=== PATIENT | male | born 1955 | race African-American/Black ===

== ENCOUNTER 2017-12-14 10:44 | Inpatient (IN) ==
[2017-12-14] MEDS ORDERED: 0.9 % Sodium Chloride 1,000 ML IVC ONE ×3 (10:59→14:51)
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
[2017-12-14] MEDS ORDERED: Acetaminophen IV 1,000 MG/100 ML INFUS..BTL IVPB ONE (11:12)
[2017-12-14 11:32] LABS: Basophils % 0.1 %
[2017-12-14 11:34] LABS: Hematocrit 35.3 % (37.5-50.1); Hemoglobin 11.8 g/dL (12.9-16.9); Immature Granulocytes % 0.4 % (0-4); Immature Platelets 5.8 % (1.1-6.1); Lymphocytes # 0.4 K/mcL (0.6-4.6); Lymphocytes % 4.1 %; Mean Corpuscular HGB Conc 33.4 g/dL (31.6-35.5); Mean Corpuscular Hemoglobin 29.8 pg (28.0-33.3); Mean Corpuscular Volume 89.1 fL (83.0-100.0); Mean Platelet Volume 10.8 fL (9.4-12.4); Monocytes # 0.5 K/mcL (0.0-1.3); Monocytes % 5.4 %; Neutrophils # 8.4 K/mcL (1.6-8.9); Platelet Count 89 K/mcL (140-400); Red Blood Count 3.96 M/mcL (4.19-5.50); Red Cell Distribution Width 14.5 % (11.5-14.5)
[2017-12-14 11:42] LABS: Bilirubin,Urine Negative (Negative); Blood,Urine Negative (Negative); Clarity,Urine Clear (Clear); Color,Urine Yellow (Yellow); Glucose,Urine (UA) Normal (Normal); Ketones,Urine Negative (Negative); Leukocyte Esterase,Urine Negative (Negative); Nitrite,Urine Negative (Negative); Protein,Urine Negative (Neg-Trace); Specific Gravity,Urine 1.015 (1.010-1.025); Urobilinogen,Urine Normal (Normal)
[2017-12-14 11:49] LABS: Albumin 3.5 g/dL (3.5-5.7); Albumin/Globulin Ratio 1.1 (1.1-2.2); Bilirubin,Total 0.7 mg/dL (0.3-1.0); Calcium 9.1 mg/dL (8.6-10.3); Globulin 3.1 g/dL (2.4-3.5); Magnesium 2.1 mg/dL (1.6-2.6); Phosphorous 3.6 mg/dL (2.7-4.5); Potassium 3.4 mEq/L (3.5-5.1); Total Protein 6.6 g/dL (6.4-8.9)
[2017-12-14 11:51] LABS: Amphetamine Screen,Urine Negative ng/mL (Cutoff=1000); Barbiturate Screen,Urine Negative ng/mL (Cutoff=200); Benzodiazepines Screen,Urine Negative ng/mL (Cutoff=200); Cannabinoid Screen,Urine Negative ng/mL (Cutoff = 50); Cocaine Screen,Urine Negative ng/mL (Cutoff= 300); Opiate Screen,Urine Negative ng/mL (Cutoff=300); Phencyclidine Screen,Urine Negative ng/mL (Cutoff=25)
[2017-12-14] MEDS ORDERED: cefTRIAXone 2,000 MG in Water for inj. (sterile) 20 ML IVP ONE (11:57)
[2017-12-14] MEDS ORDERED: Acyclovir 800 MG in D5% in Water 250 ML IVPB ONE (11:58)
[2017-12-14] MEDS ORDERED: 0.9 % Sodium Chloride 1,000 ML IVC SCH (12:15)
[2017-12-14 12:20] LABS: ABG Base Excess -5 mEq/L (-2 to 3); ABG HCO3 20 mEq/L (21-27); ABG Oxygen Saturation 100 % (95-98); ABG PCO2 37 mmHg (35-45); ABG PH 7.34 pH Units (7.32-7.45); ABG PO2 174 mmHg (85-104); ABG TCO2 21 mEq/L (20-26)
--- NOTE | 2017-12-14 13:08 | Emergency Department Note ---
Disposition Clinical Impression: Altered mental status Qualifiers: Altered mental status type: unspecified Qualified Code(s): R41.82 - Altered mental status, unspecified Fever Qualifiers: Fever type: unspecified Qualified Code(s): R50.9 - Fever, unspecified Disposition: Admitted As Inpatient Referrals: NONE,PCP [Primary Care Provider] - Forms: ED Satisfaction Letter General Adult HPI - General Chief complaint: ED Fall Stated complaint: poss seizure/AMS Time Seen by Provider: 12/14/17 10:50 Source: patient, EMS Mode of arrival: EMS Limitations: altered mental status Nursing Notes Reviewed: Yes Vital Signs Reviewed: Yes - History of Present Illness HPI Narrative: This is only a procedure note. For full H&P please refer to Dr. Chavez and Dr. Edmondson's Note. Pain Scale: 0 - Related Data Home Medications Medication Instructions Recorded Confirmed LORazepam [Ativan] 1 mg PO TID 10/29/15 12/14/17 OLANZapine [Zyprexa] 30 mg PO HS 10/29/15 12/14/17 Trihexyphenidyl [Artane] 2 mg PO BID 10/29/15 12/14/17 cloNIDine HCl [CloNIDine HCl] 0.1 mg PO HS 12/14/17 12/14/17 traZODone [TraZODone] 400 mg PO HS 12/14/17 12/14/17 Previous Rx's Medication Instructions Recorded Fluphenazine [Prolixin] 2.5 mg PO BID #8 tablet 05/03/17 Allergies Allergy/AdvReac Type Severity Reaction Status Date / Time No Known Allergies Allergy Verified 10/29/15 17:34 Past Medical History - Past Medical History Medical history: Reports: no medical history Surgical history: Reports: no surgical history Psychiatric history: Reports: anxiety, bipolar, depression - Social History Smoking Status: Current every day smoker Smokeless Tobacco Status: No Alcohol use: Reports: none Drug use: Reports: none Physical Exam - General Limitations: altered mental status General appearance: alert, in no apparent distress, other (Appears chronically ill) Course Vital Signs Temperature 102.3 F H 12/14/17 10:50 Pulse Rate 136 12/14/17 10:50 Respiratory Rate 20 12/14/17 10:50 Blood Pressure 117/89 12/14/17 10:50 O2 Sat by Pulse Oximetry 9 12/14/17 10:50 Temperature 102.3 F H 12/14/17 10:50 Pulse Rate 81 12/14/17 12:27 Respiratory Rate 20 12/14/17 12:27 Blood Pressure 90/53 12/14/17 12:27 O2 Sat by Pulse Oximetry 98 12/14/17 12:27 Oxygen Delivery Oxygen Delivery Non Rebreather Mask Procedures - Lumbar Puncture Consent Obtained: written consent Time Out Performed: Yes Patient Position: upright Skin Prep: Povidone-Iodine 1% Local Anesthetic: lidocaine 1% Amount of anesthesia used (mL): 3 Spinal Needle Gauge: 20G Interspace Used: L3-L4 Fluid Initially Obtained: clear Complications: Need to have other Practitioner Attempt (Needed to have attending attempt after two attempts by myself. ) Medical Decision Making - MDM Narrative Medical decision making narrative: This is only a procedure note. For full H&P please refer to Dr. Chavez and Dr. Edmondson's Note. - Lab Data Result diagrams: 12/14/17 11:19 12/14/17 11:19 Lab Results 12/14/17 12/14/17 12/14/17 Range/Units 11:19 11:19 11:19 WBC 9.3 (4.3-11.1) K/mcL RBC 3.96 L (4.19-5.50) M/mcL Hgb 11.8 L (12.9-16.9) g/dL Hct 35.3 L (37.5-50.1) % MCV 89.1 (83.0-100.0) fL MCH 29.8 (28.0-33.3) pg MCHC 33.4 (31.6-35.5) g/dL RDW 14.5 (11.5-14.5) % Plt Count 89 L (140-400) K/mcL MPV 10.8 (9.4-12.4) fL Immature Gran % 0.4 (0-4) % Seg Neutrophils % 90.0 % Lymphocytes % 4.1 % Monocytes % 5.4 % Eosinophils % 0.0 % Basophils % 0.1 % Neutrophils # 8.4 (1.6-8.9) K/mcL Lymphocytes # 0.4 L (0.6-4.6) K/mcL Monocytes # 0.5 (0.0-1.3) K/mcL Eosinophils # 0.0 (0.0-0.6) K/mcL Basophils # 0.0 (0.0-0.2) K/mcL Immature Plt Fraction 5.8 (1.1-6.1) % Sample Site ABG pH (7.32-7.45) pH Units ABG pCO2 (35-45) mmHg ABG pO2 (85-104) mmHg ABG HCO3 (21-27) mEq/L ABG Total CO2 (20-26) mEq/L ABG O2 Saturation (95-98) % ABG Base Excess (-2 to 3) mEq/L Franklin Test O2 Delivery Device Inspired O2 (1-15=lpm [id number]=%) Sodium 136 (136-145) mEq/L Potassium 3.4 L (3.5-5.1) mEq/L Chloride 105 (98-107) mEq/L Carbon Dioxide 13 L (23-29) mEq/L BUN 15 (8-23) mg/dL Creatinine 2.11 H (0.70-1.30) mg/dL Est GFR ( Amer) 39 L (> 60) Est GFR (Non-Af Amer) 32 L (> 60) BUN/Creatinine Ratio 7 (6-26) Glucose 108 H (70-105) mg/dL Calculated Osmolality 283 (280-300) Lactic Acid (0.5-2.2) mmol/L Calcium 9.1 (8.6-10.3) mg/dL Phosphorus 3.6 (2.7-4.5) mg/dL Magnesium 2.1 (1.6-2.6) mg/dL Total Bilirubin 0.7 (0.3-1.0) mg/dL AST 57 H (13-39) Units/L ALT 45 (7-52) Units/L Alkaline Phosphatase 89 (34-104) Units/L Ammonia (16-53) mcmol/L Creatine Kinase 1143 H (30-223) Units/L Serum Total Protein 6.6 (6.4-8.9) g/dL Albumin 3.5 (3.5-5.7) g/dL Globulin 3.1 (2.4-3.5) g/dL Albumin/Globulin Ratio 1.1 (1.1-2.2) Urine Color (Yellow) Urine Clarity (Clear) Urine pH (5.0-8.0) pH Units Ur Specific [place] (1.010-1.025) Urine Protein (Neg-Trace) mg/dL Urine Glucose (UA) (Normal) mg/dL Urine Ketones (Negative) mg/dL Urine Blood (Negative) Urine Nitrite (Negative) Urine Bilirubin (Negative) Urine Urobilinogen (Normal) mg/dL Ur Leukocyte Esterase (Negative) Urine Opiates Screen (Yslvcb=979) ng/mL Ur Barbiturates Screen (Fjvxez=891) ng/mL Ur Phencyclidine Scrn (Cutoff=25) ng/mL Ur Amphetamines Screen (Zftnqx=8063) ng/mL U Benzodiazepines Scrn (Rbdjyo=839) ng/mL Urine Cocaine Screen (Cutoff= 300) ng/mL U Marijuana (THC) Screen (Cutoff = 50) ng/mL Ethyl Alcohol < 10 (0-10) mg/dL 12/14/17 12/14/17 12/14/17 Range/Units 11:19 11:19 11:34 WBC (4.3-11.1) K/mcL RBC (4.19-5.50) M/mcL Hgb (12.9-16.9) g/dL Hct (37.5-50.1) % MCV (83.0-100.0) fL MCH (28.0-33.3) pg MCHC (31.6-35.5) g/dL RDW (11.5-14.5) % Plt Count (140-400) K/mcL MPV (9.4-12.4) fL Immature Gran % (0-4) % Seg Neutrophils % % Lymphocytes % % Monocytes % % Eosinophils % % Basophils % % Neutrophils # (1.6-8.9) K/mcL Lymphocytes # (0.6-4.6) K/mcL Monocytes # (0.0-1.3) K/mcL Eosinophils # (0.0-0.6) K/mcL Basophils # (0.0-0.2) K/mcL Immature Plt Fraction (1.1-6.1) % Sample Site ABG pH (7.32-7.45) pH Units ABG pCO2 (35-45) mmHg ABG pO2 (85-104) mmHg ABG HCO3 (21-27) mEq/L ABG Total CO2 (20-26) mEq/L ABG O2 Saturation (95-98) % ABG Base Excess (-2 to 3) mEq/L Franklin Test O2 Delivery Device Inspired O2 (1-15=lpm [id number]=%) Sodium (136-145) mEq/L Potassium (3.5-5.1) mEq/L Chloride (98-107) mEq/L Carbon Dioxide (23-29) mEq/L BUN (8-23) mg/dL Creatinine (0.70-1.30) mg/dL Est GFR ( Amer) (> 60) Est GFR (Non-Af Amer) (> 60) BUN/Creatinine Ratio (6-26) Glucose (70-105) mg/dL Calculated Osmolality (280-300) Lactic Acid 9.8 H* (0.5-2.2) mmol/L Calcium (8.6-10.3) mg/dL Phosphorus (2.7-4.5) mg/dL Magnesium (1.6-2.6) mg/dL Total Bilirubin (0.3-1.0) mg/dL AST (13-39) Units/L ALT (7-52) Units/L Alkaline Phosphatase (34-104) Units/L Ammonia 65 H (16-53) mcmol/L Creatine Kinase (30-223) Units/L Serum Total Protein (6.4-8.9) g/dL Albumin (3.5-5.7) g/dL Globulin (2.4-3.5) g/dL Albumin/Globulin Ratio (1.1-2.2) Urine Color Yellow (Yellow) Urine Clarity Clear (Clear) Urine pH 6.0 (5.0-8.0) pH Units Ur Specific [place] 1.015 (1.010-1.025) Urine Protein Negative (Neg-Trace) mg/dL Urine Glucose (UA) Normal (Normal) mg/dL Urine Ketones Negative (Negative) mg/dL Urine Blood Negative (Negative) Urine Nitrite Negative (Negative) Urine Bilirubin Negative (Negative) Urine Urobilinogen Normal (Normal) mg/dL Ur Leukocyte Esterase Negative (Negative) Urine Opiates Screen (Tfxyks=584) ng/mL Ur Barbiturates Screen (Rusocs=453) ng/mL Ur Phencyclidine Scrn (Cutoff=25) ng/mL Ur Amphetamines Screen (Jstbvl=6410) ng/mL U Benzodiazepines Scrn (Kztxjh=197) ng/mL Urine Cocaine Screen (Cutoff= 300) ng/mL U Marijuana (THC) Screen (Cutoff = 50) ng/mL Ethyl Alcohol (0-10) mg/dL 12/14/17 12/14/17 Range/Units 11:34 12:17 WBC (4.3-11.1) K/mcL RBC (4.19-5.50) M/mcL Hgb (12.9-16.9) g/dL Hct (37.5-50.1) % MCV (83.0-100.0) fL MCH (28.0-33.3) pg MCHC (31.6-35.5) g/dL RDW (11.5-14.5) % Plt Count (140-400) K/mcL MPV (9.4-12.4) fL Immature Gran % (0-4) % Seg Neutrophils % % Lymphocytes % % Monocytes % % Eosinophils % % Basophils % % Neutrophils # (1.6-8.9) K/mcL Lymphocytes # (0.6-4.6) K/mcL Monocytes # (0.0-1.3) K/mcL Eosinophils # (0.0-0.6) K/mcL Basophils # (0.0-0.2) K/mcL Immature Plt Fraction (1.1-6.1) % Sample Site R Brach ABG pH 7.34 (7.32-7.45) pH Units ABG pCO2 37 (35-45) mmHg ABG pO2 174 H (85-104) mmHg ABG HCO3 20 L (21-27) mEq/L ABG Total CO2 21 (20-26) mEq/L ABG O2 Saturation 100 H (95-98) % ABG Base Excess -5 L (-2 to 3) mEq/L Franklin Test Positive O2 Delivery Device NRB Inspired O2 100.0 (1-15=lpm qq79-353=%) Sodium (136-145) mEq/L Potassium (3.5-5.1) mEq/L Chloride (98-107) mEq/L Carbon Dioxide (23-29) mEq/L BUN (8-23) mg/dL Creatinine (0.70-1.30) mg/dL Est GFR ( Amer) (> 60) Est GFR (Non-Af Amer) (> 60) BUN/Creatinine Ratio (6-26) Glucose (70-105) mg/dL Calculated Osmolality (280-300) Lactic Acid (0.5-2.2) mmol/L Calcium (8.6-10.3) mg/dL Phosphorus (2.7-4.5) mg/dL Magnesium (1.6-2.6) mg/dL Total Bilirubin (0.3-1.0) mg/dL AST (13-39) Units/L ALT (7-52) Units/L Alkaline Phosphatase (34-104) Units/L Ammonia (16-53) mcmol/L Creatine Kinase (30-223) Units/L Serum Total Protein (6.4-8.9) g/dL Albumin (3.5-5.7) g/dL Globulin (2.4-3.5) g/dL Albumin/Globulin Ratio (1.1-2.2) Urine Color (Yellow) Urine Clarity (Clear) Urine pH (5.0-8.0) pH Units Ur Specific [place] (1.010-1.025) Urine Protein (Neg-Trace) mg/dL Urine Glucose (UA) (Normal) mg/dL Urine Ketones (Negative) mg/dL Urine Blood (Negative) Urine Nitrite (Negative) Urine Bilirubin (Negative) Urine Urobilinogen (Normal) mg/dL Ur Leukocyte Esterase (Negative) Urine Opiates Screen Negative (Kkpulp=422) ng/mL Ur Barbiturates Screen Negative (Onfzhw=732) ng/mL Ur Phencyclidine Scrn Negative (Cutoff=25) ng/mL Ur Amphetamines Screen Negative (Ycpldn=5321) ng/mL U Benzodiazepines Scrn Negative (Dsfkmg=493) ng/mL Urine Cocaine Screen Negative (Cutoff= 300) ng/mL U Marijuana (THC) Screen Negative (Cutoff = 50) ng/mL Ethyl Alcohol (0-10) mg/dL
[2017-12-14 13:52] LABS: Red Blood Cell,CSF < 0.002 M/mcL
[2017-12-14 13:53] LABS: Red Blood Cell,CSF < 0.002 M/mcL
[2017-12-14 13:58] LABS: Appearance,CSF Clear (Clear)
[2017-12-14 14:57] LABS: Lymphocytes,CSF 34.3 %; Monocytes,CSF 51.4 %
[2017-12-14] MEDS ORDERED: cefTRIAXone 2,000 MG in Water for inj. (sterile) 20 ML 20 ML IVP ONE (15:00)
[2017-12-14 15:37] LABS: Appearance,CSF Clear (Clear)
[2017-12-14 15:50] LABS: Glucose,CSF 75 mg/dL (40-70); Total Protein,CSF 60 mg/dL (15-45)
--- NOTE | 2017-12-14 16:49 | Internal Med History&Physical ---
<Jed Crawford - Last Filed: 12/14/17 18:20> Date of Encounter: 12/14/17 Time of Encounter: 16:44 Assessment and Plan (1) Meningitis Current visit: Yes Status: Acute LP was done in the Emergency department Consistent with possible viral meningitis-Elevated wbc, glucose and protein in the CSF However cultures have not returned. Patient received vancomycin, rocephin and acyclovir in the ED We will continue the patient on vancomycin, Rocephin, acyclovir and will add ampicillin due to the patient's age and concern for potential Listeria. We will continue with antibiotic therapy until we have a final culture results. Neurology has been consulted. (2) Severe sepsis Current visit: Yes Status: Acute Patient initially met criteria for severe sepsis. Patient was febrile, tachycardic, with a lactic acid initally of 9.8 Fluids have been given in the ED. Patient lactic acid has resolved. Currently 1.8. Fever and tachycardia have resolved. (3) Altered mental status Current visit: Yes Status: Acute Patient had altered mental status on presentation to the emergency department Likely secondary to possible viral meningitis. This has resolved. Patient follows commands Qualifiers: Altered mental status type: unspecified Qualified Code(s): R41.82 - Altered mental status, unspecified (4) Acute on chronic kidney failure Current visit: Yes Status: Acute Has acute elevation in Cr and acute decrease in the patients GFR Will continue to provde IV hydration. Qualifiers: Acute renal failure type: unspecified Chronic kidney disease stage: stage 3 (moderate) Qualified Code(s): N17.9 - Acute kidney failure, unspecified; N18.3 - Chronic kidney disease, stage 3 (moderate); N18.3 - Chronic kidney disease, stage 3 (moderate) (5) Fever Current visit: Yes Status: Acute Patient had a fever of 102.3 but after receiving anipyretics the patient temp most recently was 97.6 Will continue to monitor temp and provide antipyretics as needed Qualifiers: Fever type: unspecified Qualified Code(s): R50.9 - Fever, unspecified (6) Hematemesis Current visit: Yes Status: Acute Patient had an episode of hematemesis this morning. Family member states that the vomit appeared to be a dark red color and the clothing of the patient had a red tinge stains Hemoglobin is currently stable at 11.8 Continue to trend H&H every 8 hours. NPO at midnight Consult has been placed to GI. Qualifiers: Nausea presence: unspecified Qualified Code(s): K92.0 - Hematemesis (7) DVT prophylaxis Current visit: Yes Status: Acute SCDs have been ordered No anticoagulation at this time due to concern for hematemesis and possible GI bleed. Internal Medicine - H&P: HPI Chief complaint: Seizure Admitted From: Emergency Dept Plans for Post Hospital Care: Home History of present illness: Mr. Yang is a 62 year old male was brought to the emergency department via EMS after having seizure-like activity. Family states they are at home with him when they heard a loud noise coming from another room. When the mother went to the patient's room to see what had happened she saw the patient on the floor with some jerking like movements. She also states that the patient had vomited on the floor and on his clothes prior to her getting into the room. She states that he was unarousable and would not get up. She became very concerned at this time and felt that the patient should be brought to the hospital for further evaluation. Patient's mother then called 911 and had him brought in by squad. Family states that the patient medicates himself so they are unsure if he has been taking all of his medications appropriately. Family states that he has a history of overmedicating himself and he will become somewhat unstable and disoriented. This states that this is similar to what happened during this event. Past Med Surg Social Fam HX - Past Medical History Source: obtained from family Medical history: hypertension Psychiatric history: anxiety, bipolar, depression - Past Surgical History Surgical History: no surgical history - Social History Smoking Status: Heavy tobacco smoker Smokeless Tobacco Status: No Alcohol use: none Drug use: marijuana - Family History Mother Adopted: No Family Member Ethnicity: Non- Living Status: Still Living Hx Family Cardiac Disorders: Yes (Unknown) Hx Family Respiratory Disorders: No Hx Family Cancer: Yes (Aunt) Hx Family GI Disorders: No Hx Family Endocrine Disorder: No Hx Family Neuromuscular Disorders: No Hx Family Neurologic Disorders: No Hx Family HEENT Disorders: No Hx Family Autoimmune Disorders: No Internal Medicine - H&P: Meds LORazepam [Ativan] 1 mg PO TID 10/29/15 [History] OLANZapine [Zyprexa] 30 mg PO HS 10/29/15 [History] Trihexyphenidyl [Artane] 2 mg PO BID 10/29/15 [History] Fluphenazine [Prolixin] 2.5 mg PO BID #8 tablet 05/03/17 [Rx] cloNIDine HCl [CloNIDine HCl] 0.1 mg PO HS 12/14/17 [History] traZODone [TraZODone] 400 mg PO HS 12/14/17 [History] 3 Allergy/AdvReac Type Severity Reaction Status Date / Time No Known Allergies Allergy Verified 10/29/15 17:34 All Systems PM: A 10-system review of systems was performed and is negative for pertinent findings except as documented above in the HPI. - Constitutional Constitutional: falls, lethargy - Cardiovascular Cardiovascular ROS IM: no chest pain, no dyspnea - Respiratory Respiratory: cough, no dyspnea - Gastrointestinal Gastrointestinal: hematemesis, vomiting - Constitutional Vitals: Temp Pulse Resp BP Pulse Ox 96.6 F L 66 14 107/73 99 12/14/17 13:54 12/14/17 15:47 12/14/17 15:47 12/14/17 15:47 12/14/17 15:47 General appearance: Present: A&O X 3 - Head Head exam: Present: normocephalic Additional comments: Appears to have injury to the right eye after a recent fall. - Eye Eye exam: Present: EOMI, PERRL, scleral icterus - Neck Neck exam general surgery: Present: full ROM, normal inspection, trachea midline - Respiratory Respiratory exam: Present: CTAB. Absent: accessory muscle use, rales, rhonchi, wheezes - Cardiovascular Cardiovascular exam: Present: RRR, +S1, +S2. Absent: diastolic murmur, gallop, rubs, systolic murmur - GI/Abdominal GI/Abdominal exam: Present: soft, tenderness (Mild epigastric tenderness ), no peritoneal signs. Absent: distended - Extremities Exam Extremities exam: Present: warm. Absent: pedal edema Additional comments: Clubbing of the upper extremity digits - Neurological Exam Neurological exam: Present: alert, CN II-XII intact, oriented X3, no focal deficits. Absent: motor sensory deficit, pronater drift, facial droop, speech deficit - Expanded Neurological Exam Neurological exam expanded: Present: protecting the airway Cranial Nerves: EOM's intact PM: Normal, gag reflex PM: Normal, nystagmus PM: Normal, tongue deviation PM: Normal Cerebellar function: finger to nose: Normal, heel to reyes: Abnormal Left Upper motor neuron: pronator drift: Normal Sensory exam: lower extremity light touch: Normal, upper extremity light touch: Normal Neuro motor strength exam: LUE: 5, RUE: 5, LLE: 5, RLE: 5 Coma Scale Eye Opening: Spontaneous Coma Scale Motor Response: Obeys Commands Coma Scale Verbal Response: Oriented Coma Scale Total: 15 - Psychiatric Psychiatric exam: Present: normal affect, normal mood - Skin Skin exam: Present: dry, intact, warm Internal Med - H&P Results - Labs CBC & Chem 7: 12/14/17 11:19 12/14/17 11:19 <Anish Packer - Last Filed: 12/14/17 19:37> Date of Encounter: 12/14/17 Assessment and Plan (1) Viral meningitis Current visit: Yes Status: Suspected (2) Sepsis Current visit: Yes Status: Acute Qualifiers: Sepsis type: sepsis due to unspecified organism Qualified Code(s): A41.9 - Sepsis, unspecified organism (3) Hematemesis Current visit: Yes Status: Acute Qualifiers: Nausea presence: with nausea Qualified Code(s): K92.0 - Hematemesis (4) Acute metabolic encephalopathy Current visit: Yes Status: Acute (5) Schizoaffective disorder Current visit: No Status: Chronic Qualifiers: Schizoaffective disorder type: bipolar Qualified Code(s): F25.0 - Schizoaffective disorder, bipolar type (6) Acute on chronic kidney failure Current visit: Yes Status: Acute Qualifiers: Acute renal failure type: unspecified Chronic kidney disease stage: stage 3 (moderate) Qualified Code(s): N17.9 - Acute kidney failure, unspecified; N18.3 - Chronic kidney disease, stage 3 (moderate); N18.3 - Chronic kidney disease, stage 3 (moderate) Internal Medicine - H&P: HPI History of present illness: Mr. Yang is a 62 year old male All Systems PM: A 10-system review of systems was performed and is negative for pertinent findings except as documented above in the HPI. - Constitutional Vitals: Temp Pulse Resp BP Pulse Ox 97.6 F 66 15 122/71 100 02/26/18 16:50 12/14/17 16:50 12/14/17 16:50 12/14/17 16:50 12/14/17 16:50 Internal Med - H&P Results - Labs CBC & Chem 7: 12/14/17 18:56 12/14/17 11:19 Labs: Short CBC 12/14/17 Range/Units 18:56 Hgb 11.5 L (12.9-16.9) g/dL Hct 33.4 L (37.5-50.1) % - Attending Attestation I examined this patient and my medical decision-making was reviewed with the Resident Physician on 12/14/17. I agree with the documented findings, disposition and treatment plan as described except to the extent set forth below. 62 y/o male with long hx of psychiatric issues brought to ED with mental status change. He was at home and mom heard him fall out of bed. She said he was shaking - ? seizure. When he arrived he was alert. Lactate elevated but responded to fluids. At this time his mother feels he is at baseline. Had vomiting that appeared to be blood. LP -? viral meningitis process. Exam Alert. Mucus membranes very dry - ? old blood there. Heart reg Lungs with scattered rhonchi Abd soft - tender epigastric area. No edema Very dry skin. Labs reviewed I/P 1. Possible meningitis - viral. Continue abx at this time till culture returns. Neuro eval. 2. Bipolar 3. Possible GI bleed - PPI. GI eval Monitor H/H 4 Hep C history Further diagnoses and plan as above. At this point this patient is high risk due to potential for worsening neuro status and potential GI bleed. He has been placed in inpatient status.
[2017-12-14] MEDS ORDERED: Naloxone 0.4 MG/ML INJ IVP PRN (17:10)
[2017-12-14] MEDS ORDERED: Ampicillin 1,000 MG in 0.9 % Sodium Chloride Mini Bag 100 ML IVPB SCH (18:00)
[2017-12-14] MEDS ORDERED: cefTRIAXone 2,000 MG in Water for inj. (sterile) 20 ML IVP SCH (18:00)
[2017-12-14 19:12] LABS: Hematocrit 33.4 % (37.5-50.1); Hemoglobin 11.5 g/dL (12.9-16.9)
--- NOTE | 2017-12-14 20:23 | Neurology - Consult Note ---
Date of Encounter: 12/14/17 Time of Encounter: 14:30 Assessment and Plan (1) Aseptic meningitis Current Visit: Yes Status: Acute Mr. Yang 62 yo male presented from home to the emergency department acutely ill with depressed mental status, fever and possible seizure activity. CSF found elevated protein, normal glucose and 7 nucleated cells concerning for aseptic meningitis (likely viral). Viral panel including HSV is pending. CSF gram stain without findings. clinical exam findings: patient had appropriate mental status, no witnessed seizures since evaluation since presentation. Clinical examination demonstrates an acutely ill male, no neck rigidity, photophobia or AMS. Plan: - Acyclovir for viral meningitis coverage - CSF viral panel - MRI of the brain History of Present Illness HPI: Mr. Yang is a 62 year old male significant past medical hx of Bipolar, tobacco abuse and prior drug use presented to the emergency department after potential seizure like activity at home. Hx collected from Mr. Yang and his mother. According to the patients mother she heard a loud sound this morning around 9:30am and found Mr. Yang on the floor of his room. He was shaking using all his limbs and had an episode of vomiting. He states that he did not loose consciousness during the episode. He had not been feeling well in the preceding days with decreased appetite, increased soda consumption and tobacco use. He denies any previous episodes of seizures, strokes or epilepsy. He denies any fevers, chills, diaphoresis, altered mental status, headaches, photophobia, neck stiffness, chest pain, increased sputum collection, abd pain, N/V/D/C, numbness or tingling in his extremities. After his episode he refused to come in, yet he continued to not feel well at home and his mother called 911 and brought him the the emergency department. According to his mother he has a hx of over medicating himself, likely secondary to forgetting he had taken his medications already. Upon evaluation he was found to have altered mental status and fever and received a lumbar puncture. Past Med Surg Social Fam HX - Past Medical History Medical history: hypertension Psychiatric history: anxiety, bipolar, depression - Past Surgical History Surgical History: no surgical history - Social History Smoking Status: Heavy tobacco smoker Smokeless Tobacco Status: No Alcohol use: none Drug use: marijuana - Family History Father Name: Marlon santos Age: 93 Family Member Ethnicity: Non- Living Status: Age at : 93 Cause of : old age Mother Adopted: No Family Member Ethnicity: Non- Living Status: Still Living Hx Family Cardiac Disorders: Yes (Unknown) Hx Family Respiratory Disorders: No Hx Family Cancer: Yes (Aunt) Hx Family GI Disorders: No Hx Family Endocrine Disorder: No Hx Family Neuromuscular Disorders: No Hx Family Neurologic Disorders: No Hx Family HEENT Disorders: No Hx Family Autoimmune Disorders: No Medications and Allergies LORazepam [Ativan] 1 mg PO TID 10/29/15 [History] OLANZapine [Zyprexa] 30 mg PO HS 10/29/15 [History] Trihexyphenidyl [Artane] 2 mg PO BID 10/29/15 [History] Fluphenazine [Prolixin] 2.5 mg PO BID #8 tablet 05/03/17 [Rx] cloNIDine HCl [CloNIDine HCl] 0.1 mg PO HS 12/14/17 [History] traZODone [TraZODone] 400 mg PO HS 12/14/17 [History] 3 Allergy/AdvReac Type Severity Reaction Status Date / Time No Known Allergies Allergy Verified 10/29/15 17:34 All Systems: The remainder of the systems were reviewed and are negative - Constitutional Constitutional ROS IM: as per HPI, daytime sleepiness, fever(s), no chills, no headache(s), no weakness - Nose, Mouth, Throat Nose, mouth and throat: no dizziness, no neck pain, no throat swelling - Cardiovascular Cardiovascular ROS IM: no chest pain, no chest pain with activity, no diaphoresis, no dyspnea, no palpitations, no syncope - Respiratory Respiratory IM: no cough, no dyspnea, no excessive phlegm production, no change in phlegm color - Gastrointestinal Gastrointestinal: hematemesis, nausea, vomiting, no change in stool character, no diarrhea, no dyspepsia, no dysphagia - Genitourinary Genitourinary ROS: no hematuria, no urinary frequency, no urinary urgency - Musculoskeletal Musculoskeletal ROS IM: no muscle weakness, no neck pain - Integumentary Integumentary IM: no swelling - Neurological Neurological ROS: no headache(s), no loss of vision, no tingling Physical Examination - Vital Signs Vital Signs: Initial Vital Signs Temp Pulse Resp BP Pulse Ox 102.3 F H 136 20 117/89 9 12/14/17 10:50 12/14/17 10:50 12/14/17 10:50 12/14/17 10:50 12/14/17 10:50 - Constitutional General appearance: comfortable - Neurologic Sensorimotor examination: intact Detailed motor examination: full strength in all major muscle groups Motor examination - right side: 5/5: deltoids, biceps, triceps, wrist flexion, wrist extension, print shop manager, hip flexors, tibialis Anterior, quadriceps, toe extension (EHL), plantarflexion Motor examination - left side: 5/5: deltoids, biceps, triceps, wrist flexion, wrist extension, hip flexors, print shop manager, quadriceps, tibialis Anterior, toe extension (EHL), plantarflexion Reflex and gait examination: intact Reflexes: Biceps: 2+, Triceps: 2+, Brachioradialis: 2+, Patella: 2+, Achilles: 2 + Mental Status Examination: awake, alert, oriented to person, oriented to place, oriented to time, follows commands appropriately, answers questions appropriately, no agnosia, no aphasia, no aproxia Cranial nerve examination: PERRL, EOMI, visual yanes intact, corneal reflexes brisk symmetrically, sensory to face intact, mastication intact, no facial asymmetry is present, no dysarthria, hearing is intact symmetrically, soft palate elevates bilaterally upon phonation, gag reflex intact, flexes SCM and trapezius muscles symmetrically with full power, tongue protrudes midline, no atrophy or facial fasiculations present Cerebellar examination: no dysmetria, performs finger to nose and heel to reyes symmetrically without ataxia, no gait ataxia, no truncal ataxia, no difficulty with rapid alternating movements Results - Laboratory Findings CBC and BMP: 12/14/17 18:56 12/14/17 11:19 Abnormal lab findings: Abnormal lab results RBC 3.96 M/mcL (4.19-5.50) L 12/14/17 11:19 Hgb 11.5 g/dL (12.9-16.9) L 12/14/17 18:56 Hct 33.4 % (37.5-50.1) L 12/14/17 18:56 Plt Count 89 K/mcL (140-400) L 12/14/17 11:19 Lymphocytes # 0.4 K/mcL (0.6-4.6) L 12/14/17 11:19 ABG pO2 174 mmHg (85-104) H 12/14/17 12:17 ABG HCO3 20 mEq/L (21-27) L 12/14/17 12:17 ABG O2 Saturation 100 % (95-98) H 12/14/17 12:17 ABG Base Excess -5 mEq/L (-2 to 3) L 12/14/17 12:17 Potassium 3.4 mEq/L (3.5-5.1) L 12/14/17 11:19 Carbon Dioxide 13 mEq/L (23-29) L 12/14/17 11:19 Creatinine 2.11 mg/dL (0.70-1.30) H 12/14/17 11:19 Est GFR ( Amer) 39 (> 60) L 12/14/17 11:19 Est GFR (Non-Af Amer) 32 (> 60) L 12/14/17 11:19 Glucose 108 mg/dL (70-105) H 12/14/17 11:19 POC Glucose 102 (58-89) H 12/14/17 11:02 AST 57 Units/L (13-39) H 12/14/17 11:19 Ammonia 65 mcmol/L (16-53) H 12/14/17 11:19 Creatine Kinase 5068 Units/L (30-223) H 12/14/17 17:01 CSF Tot Nucleated Cells 16 TNC/mcL (0-5) H* 12/14/17 13:00 CSF Glucose 75 mg/dL (40-70) H 12/14/17 13:00 CSF Total Protein 60 mg/dL (15-45) H 12/14/17 13:00 Consult Discharge Plan - Plan Referrals: NONE,PCP [Primary Care Provider] -
[2017-12-14] MEDS ORDERED: traZODone 50 MG TABLET PO SCH (21:00)
[2017-12-14] MEDS: OLANZapine 10 MG TAB.RAPDIS PO SCH (21:10)
[2017-12-14] MEDS: *HR* LORazepam 1 MG TABLET PO SCH (21:11)
[2017-12-14] MEDS: cloNIDine HCl 0.1 MG TABLET PO SCH (21:11)
[2017-12-14] MEDS: Famotidine 20 MG TABLET PO SCH (23:04)
[2017-12-14] MEDS: Acyclovir 800 MG in D5% in Water 250 ML IVPB SCH (23:04)
[2017-12-15 01:16] LABS: Basophils % 0.1 %; Eosinophils % 0.5 %; Hematocrit 33.5 % (37.5-50.1)
[2017-12-15 01:18] LABS: Eosinophils # 0.1 K/mcL (0.0-0.6); Hemoglobin 11.4 g/dL (12.9-16.9); Immature Granulocytes % 0.5 % (0-4); Immature Platelets 5.4 % (1.1-6.1); Lymphocytes # 2.1 K/mcL (0.6-4.6); Lymphocytes % 18.8 %; Mean Corpuscular Hemoglobin 30.1 pg (28.0-33.3); Mean Corpuscular Volume 88.4 fL (83.0-100.0); Monocytes % 9.4 %; Neutrophils # 7.8 K/mcL (1.6-8.9); Red Blood Count 3.79 M/mcL (4.19-5.50); Red Cell Distribution Width 14.6 % (11.5-14.5); Segmented Neutrophils % 70.7 %
[2017-12-15 01:21] LABS: Platelet Count 86 K/mcL (140-400)
[2017-12-15 01:47] LABS: Alanine Aminotransferase 46 Units/L (7-52); Albumin 2.8 g/dL (3.5-5.7); Alkaline Phosphatase 86 Units/L (34-104); Aspartate Amino Transferase 158 Units/L (13-39); BUN/Creatinine Ratio 8 (6-26); Bilirubin,Total 0.6 mg/dL (0.3-1.0); Blood Urea Nitrogen 11 mg/dL (8-23); Calcium 7.8 mg/dL (8.6-10.3); Carbon Dioxide 20 mEq/L (23-29); Chloride 113 mEq/L (98-107); Globulin 2.7 g/dL (2.4-3.5); Glucose 112 mg/dL (70-105); Osmolality,Calculated 286 (280-300); Phosphorous 2.6 mg/dL (2.7-4.5); Potassium 3.6 mEq/L (3.5-5.1); Sodium 138 mEq/L (136-145); Total Protein 5.5 g/dL (6.4-8.9); eGFR For Non-African Americans 51 (> 60)
[2017-12-15 02:00] LABS: Thyroid Stimulating Hormone 1.195 mcIU/mL (0.340-5.600)
[2017-12-15] MEDS: Ampicillin 1,000 MG in 0.9 % Sodium Chloride Mini Bag 100 ML IVPB SCH ×4 (02:32→21:32)
[2017-12-15 04:26] LABS: Hepatitis B Surface Antigen Nonreactive (Nonreactive)
[2017-12-15] MEDS: Pantoprazole 40 MG VIAL IVP SCH ×2 (05:28→17:57)
[2017-12-15] MEDS: cefTRIAXone 2,000 MG in Water for inj. (sterile) 20 ML 20 ML IVP SCH ×2 (05:28→17:58)
[2017-12-15 06:44] LABS: Adenovirus Not Detected (Not Detect); Bordetella Pertussis Not Detected (Not Detect); Chlamydophila pneumoniae Not Detected (Not Detect); Coronavirus 229E Not Detected (Not Detect); Coronavirus HKU1 Not Detected (Not Detect); Coronavirus NL63 Not Detected (Not Detect); Coronavirus OC43 Not Detected (Not Detect); Human Metapneumovirus Not Detected (Not Detect); Human Rhinovirus/Enterovirus Not Detected (Not Detect); Influenza A Subtype 2009 H1 Not Detected (Not Detect); Influenza A Untypeable Not Detected (Not Detect); Influenza B Not Detected (Not Detect); Mycoplasma pneumoniae Not Detected (Not Detect); Parainfluenza Virus 1 Not Detected (Not Detect); Parainfluenza Virus 2 Not Detected (Not Detect); Parainfluenza Virus 3 Not Detected (Not Detect); Parainfluenza Virus 4 Not Detected (Not Detect); Respiratory Syncytial Virus Not Detected (Not Detect)
[2017-12-15] MEDS: Famotidine 20 MG TABLET PO SCH (08:20)
[2017-12-15] MEDS: *HR* LORazepam 1 MG TABLET PO SCH ×2 (08:20→15:53)
[2017-12-15 08:29] LABS: Acinetobacter baumannii by PCR Not Detected (Not Detect); Candida albicans by PCR Not Detected (Not Detect); Candida glabrata by PCR Not Detected (Not Detect); Candida krusei by PCR Not Detected (Not Detect); Candida parapsilosis by PCR Not Detected (Not Detect); Candida tropicalis by PCR Not Detected (Not Detect); Enterobacter cloacae Cmplx PCR Not Detected (Not Detect); Enterobacteriaceae by PCR Not Detected (Not Detect); Enterococcus by PCR Not Detected (Not Detect); Escherichia coli by PCR Not Detected (Not Detect); Klebsiella oxytoca by PCR Not Detected (Not Detect); Klebsiella pneumoniae by PCR Not Detected (Not Detect); Proteus by PCR Not Detected (Not Detect); Pseudomonas aeruginosa by PCR Not Detected (Not Detect); Serratia marcescens by PCR Not Detected (Not Detect); Staphylococcus aureus by PCR Not Detected (Not Detect); Staphylococcus by PCR ***DETECTED*** (Not Detect); Streptococcus agalactiae(B)PCR Not Detected (Not Detect); Streptococcus by PCR Not Detected (Not Detect); Streptococcus pneumoniae PCR Not Detected (Not Detect); Streptococcus pyogenes (A) PCR Not Detected (Not Detect); mecA Methicillin-Resist Gene ***DETECTED*** (Not Detect)
[2017-12-15] MEDS: Acyclovir 800 MG in D5% in Water 250 ML IVPB SCH ×2 (09:09→18:04)
--- NOTE | 2017-12-15 09:09 | Neurology Progress Note ---
Date of Encounter: 12/15/17 Time of Encounter: 09:09 Assessment and Plan (1) Aseptic meningitis Current Visit: Yes Status: Acute Mr. Yang 62 yo male presented from home to the emergency department acutely ill with depressed mental status, fever and possible seizure activity. CSF found elevated protein, normal glucose and 7 nucleated cells concerning for aseptic meningitis (likely viral). Viral panel including HSV is pending. CSF gram stain without findings. clinical exam findings: patient had appropriate mental status, no witnessed seizures since evaluation since presentation. Clinical examination demonstrates an acutely ill male, no neck rigidity, photophobia or AMS. 12/15: Mr. Yang 62-year-old male seen and evaluated this morning no acute changes compared to yesterday's examination. Patient is more alert awake interactive. CSF viral panel all negative. HSV is a send out and still pending. Gram stain negative. Patient does have blood cultures with PCR positive for Staphylococcus species and methicillin-resistant gene. Only one blood culture result thus far may be contaminant but cannot rule out at this time. Plan: - Continue treatment for meningitis with plans for 10 days treatment. - Antibiotic continuation of acyclovir, ceftriaxone, ampicillin, vancomycin - HSV culture pending Subjective Interval history: Mr. Yang 61-year-old male seen in [place] the patient bedside this morning. He is alert awake interactive and states he feels much better compared to yesterday. Denies any nausea vomiting, seizure-like activities, weakness numbness tingling loss of bowel or bladder biting his tongue. Overall he is feeling much improved. Denies any previous seizure history or strokes. Objective - Constitutional Vitals: Temp Pulse Resp BP Pulse Ox 98.0 F 62 15 115/79 100 12/14/17 20:38 12/15/17 07:00 12/15/17 07:00 12/15/17 07:00 12/15/17 07:00 - Neurological Exam Sensorimotor examination: Present: intact Motor Examination: Present: full strength in all major muscle groups Motor examination - right side: 5/5: deltoids, biceps, triceps, wrist flexion, wrist extension, health data administrator, hip flexors, tibialis Anterior, quadriceps, toe extension (EHL), plantarflexion Motor examination - left side: 5/5: deltoids, biceps, triceps, wrist flexion, wrist extension, hip flexors, health data administrator, quadriceps, tibialis Anterior, toe extension (EHL), plantarflexion Reflex and gait examination: intact Reflexes: Biceps: 2+, Triceps: 2+, Brachioradialis: 2+, Patella: 2+, Achilles: 2 + Mental Status Examination: Present: awake, alert, oriented to person, oriented to place, oriented to time, follows commands appropriately, answers questions appropriately, no agnosia, no aphasia, no aproxia Cranial nerve examination: Present: PERRL, EOMI, visual yanes intact, corneal reflexes brisk symmetrically, sensory to face intact, mastication intact, no facial asymmetry is present, no dysarthria, hearing is intact symmetrically, soft palate elevates bilaterally upon phonation, gag reflex intact, flexes SCM and trapezius muscles symmetrically with full power, tongue protrudes midline, no atrophy or facial fasiculations present Cerebellar examination: Present: no dysmetria, performs finger to nose and heel to reyes symmetrically without ataxia, no gait ataxia, no truncal ataxia, no difficulty with rapid alternating movements - VTE Documentation of Mechanical Device: Intermittent pneumatic compression device Results - Laboratory Findings CBC and BMP: 12/15/17 01:07 12/15/17 01:07 Abnormal lab findings: Abnormal lab results RBC 3.79 M/mcL (4.19-5.50) L 12/15/17 01:07 Hgb 11.4 g/dL (12.9-16.9) L 12/15/17 01:07 Hct 33.5 % (37.5-50.1) L 12/15/17 01:07 RDW 14.6 % (11.5-14.5) H 12/15/17 01:07 Plt Count 86 K/mcL (140-400) L 12/15/17 01:07 ABG pO2 174 mmHg (85-104) H 12/14/17 12:17 ABG HCO3 20 mEq/L (21-27) L 12/14/17 12:17 ABG O2 Saturation 100 % (95-98) H 12/14/17 12:17 ABG Base Excess -5 mEq/L (-2 to 3) L 12/14/17 12:17 Chloride 113 mEq/L (98-107) H 12/15/17 01:07 Carbon Dioxide 20 mEq/L (23-29) L 12/15/17 01:07 Creatinine 1.40 mg/dL (0.70-1.30) H 12/15/17 01:07 Est GFR (Non-Af Amer) 51 (> 60) L 12/15/17 01:07 Glucose 112 mg/dL (70-105) H 12/15/17 01:07 POC Glucose 102 (58-89) H 12/14/17 11:02 Calcium 7.8 mg/dL (8.6-10.3) L 12/15/17 01:07 Phosphorus 2.6 mg/dL (2.7-4.5) L 12/15/17 01:07 AST 158 Units/L (13-39) H 12/15/17 01:07 Ammonia 65 mcmol/L (16-53) H 12/14/17 11:19 Creatine Kinase 5068 Units/L (30-223) H 12/14/17 17:01 Serum Total Protein 5.5 g/dL (6.4-8.9) L 12/15/17 01:07 Albumin 2.8 g/dL (3.5-5.7) L 12/15/17 01:07 Albumin/Globulin Ratio 1.0 (1.1-2.2) L 12/15/17 01:07 CSF Tot Nucleated Cells 16 TNC/mcL (0-5) H* 12/14/17 13:00 CSF Glucose 75 mg/dL (40-70) H 12/14/17 13:00 CSF Total Protein 60 mg/dL (15-45) H 12/14/17 13:00 Staphylococcus sp PCR DETECTED (Not Detect) A 12/14/17 11:19 mecA-Methicil Res Gene DETECTED (Not Detect) A 12/14/17 11:19 Consult Discharge Plan - Plan Referrals: NONE,PCP [Primary Care Provider] -
--- NOTE | 2017-12-15 10:08 | Internal Med Progress Note ---
Date of Encounter: 12/15/17 Time of Encounter: 10:06 - Assessment and plan (1) Meningitis Current Visit: Yes Status: Suspected Assessment and plan: LP done in ED on admission CSF suggestive of viral meningitis, but blood cultures grew MRSA. Continue vancomycin, rocephin, acyclovir, ampicillin Neurology following, recommendations appreciated. (2) Sepsis Current Visit: Yes Status: Acute Assessment and plan: + MRSA cultures. On admission, Fever of 102.3, currently afebrile. Will continue to monitor temp and provide antipyretics as needed Possible source of meningitis or other - Follow-up MRSA sensitivities - repeat blood culture today - Echocardiogram - De-escalate antibiotics if patient improves. Qualifiers: Sepsis type: methicillin susceptible Staphylococcus aureus Qualified Code(s ): A41.01 - Sepsis due to Methicillin susceptible Staphylococcus aureus (3) Acute metabolic encephalopathy Current Visit: Yes Status: Acute Assessment and plan: Patient had altered mental status on presentation to the emergency department Likely secondary to possible viral meningitis. This has resolved. Patient follows commands (4) Acute on chronic kidney failure Current Visit: Yes Status: Acute Assessment and plan: Has acute elevation in Cr and acute decrease in the patients GFR Will continue to provde IV hydration. improving Qualifiers: Acute renal failure type: unspecified Chronic kidney disease stage: stage 3 (moderate) Qualified Code(s): N17.9 - Acute kidney failure, unspecified; N18.3 - Chronic kidney disease, stage 3 (moderate); N18.3 - Chronic kidney disease, stage 3 (moderate) (5) Hematemesis Current Visit: Yes Status: Acute Assessment and plan: Patient had an episode of hematemesis on admission. Family member states that the vomit appeared to be a dark red color and the clothing of the patient had a red tinge stains Hemoglobin is currently stable Continue to trend H&H every 8 hours. NPO at midnight Consult has been placed to GI. Qualifiers: Nausea presence: with nausea Qualified Code(s): K92.0 - Hematemesis (6) Schizoaffective disorder Current Visit: No Status: Chronic Qualifiers: Schizoaffective disorder type: bipolar Qualified Code(s): F25.0 - Schizoaffective disorder, bipolar type (7) DVT prophylaxis Current Visit: Yes Status: Acute Assessment and plan: Heparin 5,000 Sq - Subjective Interval history: No complaints, no acute events. - Constitutional Vitals: Temp Pulse Resp BP Pulse Ox 98.0 F 62 15 115/79 100 12/14/17 20:38 12/15/17 07:00 12/15/17 07:00 12/15/17 07:00 12/15/17 07:00 General appearance: Present: A&O X 3 Exam: - Head Head exam: Present: normocephalic Additional comments: Appears to have injury to the right eye after a recent fall. - Eye Eye exam: Present: EOMI, PERRL, scleral icterus - Neck Neck exam general surgery: Present: full ROM, normal inspection, trachea midline - Respiratory Respiratory exam: Present: CTAB. Absent: accessory muscle use, rales, rhonchi, wheezes - Cardiovascular Cardiovascular exam: Present: RRR, +S1, +S2. Absent: diastolic murmur, gallop, rubs, systolic murmur - GI/Abdominal GI/Abdominal exam: Present: soft, tenderness (Mild epigastric tenderness ), no peritoneal signs. Absent: distended - Extremities Exam Extremities exam: Present: warm. Absent: pedal edema Additional comments: Clubbing of the upper extremity digits - Neurological Exam Neurological exam: Present: alert, CN II-XII intact, oriented X3, no focal deficits. Absent: motor sensory deficit, pronater drift, facial droop, speech deficit Internal Medicine: Result - Labs CBC & Chem 7: 12/15/17 01:07 12/15/17 01:07 Labs: Short CBC 12/14/17 12/15/17 Range/Units 18:56 01:07 WBC 11.0 (4.3-11.1) K/mcL Hgb 11.5 L 11.4 L (12.9-16.9) g/dL Hct 33.4 L 33.5 L (37.5-50.1) % Plt Count 86 L (140-400) K/mcL Neutrophils # 7.8 (1.6-8.9) K/mcL BMP 12/15/17 01:07 Sodium 138 Potassium 3.6 Chloride 113 H Carbon Dioxide 20 L BUN 11 Creatinine 1.40 H Glucose 112 H Calcium 7.8 L Liver Function 12/15/17 Range/Units 01:07 Total Bilirubin 0.6 (0.3-1.0) mg/dL AST 158 H (13-39) Units/L ALT 46 (7-52) Units/L Alkaline Phosphatase 86 (34-104) Units/L Albumin 2.8 L (3.5-5.7) g/dL - ABG Interpretation ABG results: ABG ABG pH 7.34 pH Units (7.32-7.45) 12/14/17 12:17 ABG pCO2 37 mmHg (35-45) 12/14/17 12:17 ABG pO2 174 mmHg (85-104) H 12/14/17 12:17 ABG O2 Saturation 100 % (95-98) H 12/14/17 12:17 - VTE Documentation of Mechanical Device: Intermittent pneumatic compression device Consult Discharge Plan - Plan Referrals: NONE,PCP [Primary Care Provider] -
--- NOTE | 2017-12-15 11:35 | Gastroenterology Consult Note ---
<Christiana Acuña M - Last Filed: 12/15/17 11:32> Date of Encounter: 12/15/17 Time of Encounter: 09:00 - Assessment and plan (1) Hematemesis Status: Acute Assessment and plan: 62 year old male with altered mental status and seizure like activity. He is being treated for viral meningitis. He had one episode of hematemesis. Discussed with Dr Garcia, will monitor H&H. If pt has further episodes of hematemesis or dropping hemaglobin will need EGD. Pt is also due for screening colonoscopy which can be done as an outpatient. Qualifiers: Nausea presence: with nausea Qualified Code(s): K92.0 - Hematemesis - Time Spent With Patient Total time spent is greater than 50% in coordination of care (as documented) at patient's floor/unit and/or counseling patient: GI History of Present Illness - Data of Consult Patient: new to practice Consult date: 12/15/17 Requesting Physician: Anish Packer DO - Consult Narrative Reason for consult: hematemesis History of present illness: Mr. Yang is a 62 year old male with a pmHx of HTN, anxiety, and bipolar depression. He was brought to the emergency department via EMS with altered mental status and seizure-like activity. Family states that the patient medicates himself so they are unsure if he has been taking all of his medications appropriately. Family states that he has a history of overmedicating himself and he will become somewhat unstable and disoriented. Drug screen in ER was normal. LP in ER was consistent with viral meningitis. He also had one episode of hematemesis but the patient states he cannot remember any bloody or coffee ground emesis. He denies any abdominal pain, nausea, vomiting, diarrhea or constipoation. He denies bloody or tarry stools. He denies ETOH or NSAID use. Hgb is stable at 11.4. Blood culture was positive for MRSA. Colonoscopy: denies EGD: denies NSAIDS/ASA: denies Anticoagulants: denies Past Med Surg Social Fam HX - Past Medical History Medical history: hypertension Psychiatric history: anxiety, bipolar, depression - Past Surgical History Surgical History: no surgical history - Social History Smoking Status: Heavy tobacco smoker Smokeless Tobacco Status: No Alcohol use: none Drug use: marijuana - Family History Father Name: Marlon santos Age: 93 Family Member Ethnicity: Non- Living Status: Age at : 93 Cause of : old age Mother Adopted: No Family Member Ethnicity: Non- Living Status: Still Living Hx Family Cardiac Disorders: Yes (Unknown) Hx Family Respiratory Disorders: No Hx Family Cancer: Yes (Aunt) Hx Family GI Disorders: No Hx Family Endocrine Disorder: No Hx Family Neuromuscular Disorders: No Hx Family Neurologic Disorders: No Hx Family HEENT Disorders: No Hx Family Autoimmune Disorders: No Review of Systems: GI: as per [place] [place] GENERAL: denies fever or chills EYES: denies yellow discoloration ENT: denies pain with swallowing or difficulty swallowing CARDIO: denies chest pain, palpitations RESP: Shortness of breath with exertion : denies change in color of urine NEURO: has increased weakness HEME: Denies any bruising MS: denies joint pain, joint swelling or back pain. DERM: denies rash or itching PSYCH: history of anxiety and bipolar depression - Constitutional Vitals: Temp Pulse Resp BP Pulse Ox 98.0 F 62 15 115/79 100 12/14/17 20:38 12/15/17 07:00 12/15/17 07:00 12/15/17 07:00 12/15/17 07:00 Exam: CONSTITUTIONAL:~alert, no acute distress.~HEAD:~normocephalic.~EYES:~no jaundice.~NECK:~no obvious swelling.~HEART:~regular rate and rhythm, no murmurs. ~LUNGS:~bilateral fair air entry.~ABDOMEN:~non distended, soft, non tender, no masses palpable, no organomegaly.~RECTAL EXAM:~Deferred.~EXTREMITIES:~no clubbing, cyanosis or edema.~SKIN:~no stigmata of chronic liver disease, dry skin noted to BLE.~NEUROLOGIC:~no obvious focal defect.~~~~ Results - Labs CBC & Chem 7: 12/15/17 01:07 12/15/17 01:07 Labs: Last Result Calcium 7.8 mg/dL (8.6-10.3) L 12/15/17 01:07 Urine Opiates Screen Negative ng/mL (Hvarzs=226) 12/14/17 11:34 Entire Visit Hgb 11.4 g/dL (12.9-16.9) L 12/15/17 01:07 Hct 33.5 % (37.5-50.1) L 12/15/17 01:07 Total Bilirubin 0.6 mg/dL (0.3-1.0) 12/15/17 01:07 AST 158 Units/L (13-39) H 12/15/17 01:07 ALT 46 Units/L (7-52) 12/15/17 01:07 Ammonia 65 mcmol/L (16-53) H 12/14/17 11:19 E. coli (PCR) Not Detected (Not Detect) 12/14/17 11:19 - ABG ABG results: ABG ABG pH 7.34 pH Units (7.32-7.45) 12/14/17 12:17 ABG pCO2 37 mmHg (35-45) 12/14/17 12:17 ABG pO2 174 mmHg (85-104) H 12/14/17 12:17 ABG O2 Saturation 100 % (95-98) H 12/14/17 12:17 Consult Discharge Plan - Plan Referrals: NONE,PCP [Primary Care Provider] - Prescriptions: cefTRIAXone [Rocephin] 2,000 mg IVPB Q24H 10 Days #10 vial <Ramiro Garcia - Last Filed: 12/27/17 14:17> Date of Encounter: 12/15/17 - Time Spent With Patient Total time spent is greater than 50% in coordination of care (as documented) at patient's floor/unit and/or counseling patient: GI History of Present Illness - Data of Consult Requesting Physician: Lisa Macedo MD - Consult Narrative History of present illness: Mr. Yang is a 62 year old male - Constitutional Vitals: Temp Pulse Resp BP Pulse Ox 98 F 71 18 114/73 98 12/22/17 05:00 12/22/17 05:00 12/22/17 05:00 12/22/17 06:45 12/22/17 05:00 Results - Labs CBC & Chem 7: 12/21/17 05:05 12/21/17 05:05 Labs: Last Result Calcium 8.7 mg/dL (8.6-10.3) 12/21/17 05:05 Urine Opiates Screen Negative ng/mL ([id number]) 12/14/17 11:34 Entire Visit Hgb 12.2 g/dL (12.9-16.9) L 12/21/17 05:05 Hct 36.2 % (37.5-50.1) L 12/21/17 05:05 Total Bilirubin 0.6 mg/dL (0.3-1.0) 12/15/17 01:07 AST 158 Units/L (13-39) H 12/15/17 01:07 ALT 46 Units/L (7-52) 12/15/17 01:07 Ammonia 65 mcmol/L (16-53) H 12/14/17 11:19 E. coli (PCR) Not Detected (Not Detect) 12/14/17 11:19 - ABG ABG results: ABG ABG pH 7.34 pH Units (7.32-7.45) 12/14/17 12:17 ABG pCO2 37 mmHg (35-45) 12/14/17 12:17 ABG pO2 174 mmHg (85-104) H 12/14/17 12:17 ABG O2 Saturation 100 % (95-98) H 12/14/17 12:17 - Attending Attestation Mr. Yang is admitted here with a viral meningitis and vital septicemia. One episode was a small amount of hematemesis that was observed but has not had any since. Other given the present clinical situation the patient and the fact that he has not had any more hematemesis or any episode of melena would defer any endoscopy until the patient becomes stable. It could be a Alexia-Faith tear but will wait for Alex will wait to do the endoscopy unit at a later date or as an outpatient. Please let us know and the patient is discharged. I have personally performed a face to face evaluation on this patient. I have reviewed and agree with the care plan. History and Exam by me shows:
[2017-12-15] MEDS: *HR* Heparin 5,000 UNIT/ML VIAL SQ SCH (18:07)
--- NOTE | 2017-12-15 20:11 | Electrocardiograph Report ---
[facility] Test Date: 2017-12-14 Pat Name: Chico Yang Department: 104 Room: 2NE19 Gender: M Pig Sticker: : 1955 Requested By: Al Chavez Order Number: [id number] Reading MD: Nya Damon DO Measurements Intervals [place] Rate: 103 P: 67 RI: 108 QRS: 43 QRSD: 92 T: 56 QT: 355 QTc: 414 Interpretive Statements SINUS TACHYCARDIA WITH SHORT RI INTERVAL POSSIBLE LEFT ATRIAL ENLARGEMENT [-0.1mV P WAVE IN V1/V2] ABNORMAL RHYTHM ECG WARNING: DATA QUALITY MAY AFFECT INTERPRETATION Electronically Signed On 12-15-2017 20:09:56 EST by Nya Damon DO
[2017-12-15] MEDS: OLANZapine 10 MG TAB.RAPDIS PO SCH (21:36)
[2017-12-15] MEDS: cloNIDine HCl 0.1 MG TABLET PO SCH (21:36)
[2017-12-16 00:36] LABS: Hemoglobin 11.5 g/dL (12.9-16.9)
[2017-12-16 00:37] LABS: Basophils % 0.3 %; Eosinophils # 0.1 K/mcL (0.0-0.6); Eosinophils % 1.5 %; Hematocrit 33.3 % (37.5-50.1); Immature Granulocytes % 0.1 % (0-4); Immature Platelets 4.4 % (1.1-6.1); Lymphocytes # 2.7 K/mcL (0.6-4.6); Mean Corpuscular HGB Conc 34.5 g/dL (31.6-35.5); Mean Corpuscular Hemoglobin 30.3 pg (28.0-33.3); Mean Corpuscular Volume 87.6 fL (83.0-100.0); Mean Platelet Volume 11.3 fL (9.4-12.4); Monocytes # 0.9 K/mcL (0.0-1.3); Monocytes % 9.5 %; Neutrophils # 5.5 K/mcL (1.6-8.9); Red Cell Distribution Width 14.5 % (11.5-14.5); Segmented Neutrophils % 59.6 %
[2017-12-16 00:38] LABS: Platelet Count 85 K/mcL (140-400)
[2017-12-16] MEDS: Acyclovir 800 MG in D5% in Water 250 ML IVPB SCH ×3 (00:39→17:08)
[2017-12-16] MEDS: *HR* LORazepam 1 MG TABLET PO PRN ×3 (00:54→20:21)
[2017-12-16 00:55] LABS: BUN/Creatinine Ratio 5 (6-26); Blood Urea Nitrogen 6 mg/dL (8-23); Calcium 8.1 mg/dL (8.6-10.3); Carbon Dioxide 21 mEq/L (23-29); Chloride 112 mEq/L (98-107); Glucose 102 mg/dL (70-105); Osmolality,Calculated 284 (280-300); Potassium 3.3 mEq/L (3.5-5.1); Sodium 138 mEq/L (136-145); eGFR For Non-African Americans 57 (> 60)
[2017-12-16] MEDS: Ampicillin 1,000 MG in 0.9 % Sodium Chloride Mini Bag 100 ML IVPB SCH ×4 (04:35→20:21)
[2017-12-16] MEDS: *HR* Heparin 5,000 UNIT/ML VIAL SQ SCH ×2 (06:28→20:21)
[2017-12-16] MEDS: cefTRIAXone 2,000 MG in Water for inj. (sterile) 20 ML 20 ML IVP SCH ×2 (06:45→17:05)
[2017-12-16] MEDS: Pantoprazole 40 MG VIAL IVP SCH ×2 (06:45→16:56)
--- NOTE | 2017-12-16 08:39 | Neurology Progress Note ---
Date of Encounter: 12/16/17 Time of Encounter: 08:39 Assessment and Plan (1) Aseptic meningitis Current Visit: Yes Status: Acute Mr. Yang 62 yo male presented from home to the emergency department acutely ill with depressed mental status, fever and possible seizure activity. CSF found elevated protein, normal glucose and 7 nucleated cells concerning for aseptic meningitis (likely viral). Viral panel including HSV is pending. CSF gram stain without findings. clinical exam findings: patient had appropriate mental status, no witnessed seizures since evaluation since presentation. Clinical examination demonstrates an acutely ill male, no neck rigidity, photophobia or AMS. 12/15: Mr. Yang 62-year-old male seen and evaluated this morning no acute changes compared to yesterday's examination. Patient is more alert awake interactive. CSF viral panel all negative. HSV is a send out and still pending. Gram stain negative. Patient does have blood cultures with PCR positive for Staphylococcus species and methicillin-resistant gene. Only one blood culture result thus far may be contaminant but cannot rule out at this time. 12/16: Clinical examination today no changes from yesterday. Patient continues to improve daily. HSV culture still pending. Continue clinical management per primary team. After HSV culture returns and if negative making sitter discontinuing acyclovir. Plan: - Antibiotic continuation of acyclovir, ceftriaxone, ampicillin, vancomycin - HSV culture pending Subjective Interval history: Mr. Yang 61-year-old male seen this morning at patient bedside. He is alert awake interactive no acute distress. No acute changes overnight, continues to improve clinically. No seizure-like activity, dizziness change in mental status. Objective - Constitutional Vitals: Temp Pulse Resp BP Pulse Ox 97.7 F 75 16 138/85 92 12/16/17 07:39 12/16/17 07:39 12/16/17 07:39 12/16/17 07:39 12/16/17 07:39 General appearance: Present: cooperative, A&O X 3, no acute distress, answers questions appropriately - Head Head exam: Present: atraumatic, normocephalic - Eye Eye exam: Present: PERRL, conjuntiva pink, sclera anicteric Pupils: Present: PERRL - Extremities Exam Extremities exam: Present: warm, radial pulses palpable and symmetrical. Absent : calf tenderness, cyanotic, pedal edema - Neurological Exam Sensorimotor examination: Present: intact Motor Examination: Present: full strength in all major muscle groups Motor examination - right side: 55: deltoids, biceps, triceps, wrist flexion, wrist extension, nursery supervisor, hip flexors, tibialis Anterior, quadriceps, toe extension (EHL), plantarflexion Motor examination - left side: 55: deltoids, biceps, triceps, wrist flexion, wrist extension, hip flexors, nursery supervisor, quadriceps, tibialis Anterior, toe extension (EHL), plantarflexion Reflex and gait examination: intact Reflexes: Biceps: 2+, Triceps: 2+, Brachioradialis: 2+, Patella: 2+, Achilles: 2 + Mental Status Examination: Present: awake, alert, oriented to person, oriented to place, oriented to time, follows commands appropriately, answers questions appropriately, no agnosia, no aphasia, no aproxia Cranial nerve examination: Present: PERRL, EOMI, visual yanes intact, corneal reflexes brisk symmetrically, sensory to face intact, mastication intact, no facial asymmetry is present, no dysarthria, hearing is intact symmetrically, soft palate elevates bilaterally upon phonation, gag reflex intact, flexes SCM and trapezius muscles symmetrically with full power, tongue protrudes midline, no atrophy or facial fasiculations present Cerebellar examination: Present: no dysmetria, performs finger to nose and heel to reyes symmetrically without ataxia, no gait ataxia, no truncal ataxia, no difficulty with rapid alternating movements - VTE Documentation of Mechanical Device: Intermittent pneumatic compression device Results - Laboratory Findings CBC and BMP: 12/16/17 00:27 12/16/17 00:27 Abnormal lab findings: Abnormal lab results RBC 3.80 M/mcL (4.19-5.50) L 12/16/17 00:27 Hgb 11.5 g/dL (12.9-16.9) L 12/16/17 00:27 Hct 33.3 % (37.5-50.1) L 12/16/17 00:27 Plt Count 85 K/mcL (140-400) L 12/16/17 00:27 ABG pO2 174 mmHg (85-104) H 12/14/17 12:17 ABG HCO3 20 mEq/L (21-27) L 12/14/17 12:17 ABG O2 Saturation 100 % (95-98) H 12/14/17 12:17 ABG Base Excess -5 mEq/L (-2 to 3) L 12/14/17 12:17 Potassium 3.3 mEq/L (3.5-5.1) L 12/16/17 00:27 Chloride 112 mEq/L (98-107) H 12/16/17 00:27 Carbon Dioxide 21 mEq/L (23-29) L 12/16/17 00:27 BUN 6 mg/dL (8-23) L 12/16/17 00:27 Est GFR (Non-Af Amer) 57 (> 60) L 12/16/17 00:27 BUN/Creatinine Ratio 5 (6-26) L 12/16/17 00:27 POC Glucose 102 (58-89) H 12/14/17 11:02 Calcium 8.1 mg/dL (8.6-10.3) L 12/16/17 00:27 Phosphorus 2.6 mg/dL (2.7-4.5) L 12/15/17 01:07 AST 158 Units/L (13-39) H 12/15/17 01:07 Ammonia 65 mcmol/L (16-53) H 12/14/17 11:19 Creatine Kinase 5068 Units/L (30-223) H 12/14/17 17:01 Serum Total Protein 5.5 g/dL (6.4-8.9) L 12/15/17 01:07 Albumin 2.8 g/dL (3.5-5.7) L 12/15/17 01:07 Albumin/Globulin Ratio 1.0 (1.1-2.2) L 12/15/17 01:07 CSF Tot Nucleated Cells 16 TNC/mcL (0-5) H* 12/14/17 13:00 CSF Glucose 75 mg/dL (40-70) H 12/14/17 13:00 CSF Total Protein 60 mg/dL (15-45) H 12/14/17 13:00 Staphylococcus sp PCR DETECTED (Not Detect) A 12/14/17 11:19 mecA-Methicil Res Gene DETECTED (Not Detect) A 12/14/17 11:19 Consult Discharge Plan - Plan Referrals: NONE,PCP [Primary Care Provider] -
--- NOTE | 2017-12-16 10:27 | Internal Med Progress Note ---
Date of Encounter: 12/16/17 Time of Encounter: 10:25 - Assessment and plan (1) Acute metabolic encephalopathy Current Visit: Yes Status: Acute Assessment and plan: Patient had altered mental status on presentation to the emergency department Likely secondary to possible viral meningitis. This has resolved. Patient follows commands SW follow-up if patient needs placed to ECF because of compliance and psychiatric issues. (2) Meningitis Current Visit: Yes Status: Suspected Assessment and plan: LP done in ED on admission CSF suggestive of viral meningitis, but blood cultures grew MRSA. Continue vancomycin, rocephin, acyclovir, ampicillin Neurology following, recommendations appreciated. (3) Sepsis Current Visit: Yes Status: Acute Assessment and plan: + MRSA cultures. On admission, Fever of 102.3, currently afebrile. Will continue to monitor temp and provide antipyretics as needed Possible source of meningitis or other - Follow-up MRSA sensitivities - repeat blood culture - Echocardiogram - De-escalate antibiotics if patient improves. - PT/OT Qualifiers: Sepsis type: methicillin susceptible Staphylococcus aureus Qualified Code(s ): A41.01 - Sepsis due to Methicillin susceptible Staphylococcus aureus (4) Acute on chronic kidney failure Current Visit: Yes Status: Acute Assessment and plan: Has acute elevation in Cr and acute decrease in the patients GFR Will continue to provde IV hydration. improving Qualifiers: Acute renal failure type: unspecified Chronic kidney disease stage: stage 3 (moderate) Qualified Code(s): N17.9 - Acute kidney failure, unspecified; N18.3 - Chronic kidney disease, stage 3 (moderate); N18.3 - Chronic kidney disease, stage 3 (moderate) (5) Hematemesis Current Visit: Yes Status: Acute Assessment and plan: Patient had an episode of hematemesis on admission. Family member states that the vomit appeared to be a dark red color and the clothing of the patient had a red tinge stains Hemoglobin is currently stable Continue to trend H&H every 8 hours. NPO at midnight Consult has been placed to GI. Qualifiers: Nausea presence: with nausea Qualified Code(s): K92.0 - Hematemesis (6) Schizoaffective disorder Current Visit: No Status: Chronic Qualifiers: Schizoaffective disorder type: bipolar Qualified Code(s): F25.0 - Schizoaffective disorder, bipolar type (7) DVT prophylaxis Current Visit: Yes Status: Acute Assessment and plan: Heparin 5,000 Sq - Subjective Interval history: No complaints, no acute events. - Constitutional Vitals: Temp Pulse Resp BP Pulse Ox 97.7 F 75 16 138/85 92 12/16/17 07:39 12/16/17 07:39 12/16/17 07:39 12/16/17 07:39 12/16/17 07:39 General appearance: Present: A&O X 3 Exam: - Head Head exam: Present: normocephalic Additional comments: Appears to have injury to the right eye after a recent fall. - Eye Eye exam: Present: EOMI, PERRL, scleral icterus - Neck Neck exam general surgery: Present: full ROM, normal inspection, trachea midline - Respiratory Respiratory exam: Present: CTAB. Absent: accessory muscle use, rales, rhonchi, wheezes - Cardiovascular Cardiovascular exam: Present: RRR, +S1, +S2. Absent: diastolic murmur, gallop, rubs, systolic murmur - GI/Abdominal GI/Abdominal exam: Present: soft, tenderness (Mild epigastric tenderness ), no peritoneal signs. Absent: distended - Extremities Exam Extremities exam: Present: warm. Absent: pedal edema Additional comments: Clubbing of the upper extremity digits - Neurological Exam Neurological exam: Present: alert, CN II-XII intact, oriented X3, no focal deficits. Absent: motor sensory deficit, pronater drift, facial droop, speech deficit - Expanded Neurological Exam Neurological exam expanded: Present: protecting the airway Cranial Nerves: EOM's intact PM: Normal, gag reflex PM: Normal, nystagmus PM: Normal, tongue deviation PM: Normal Cerebellar function: finger to nose: Normal, heel to reyes: Abnormal Left Upper motor neuron: pronator drift: Normal Sensory exam: lower extremity light touch: Normal, upper extremity light touch: Normal Neuro motor strength exam: LUE: 5, RUE: 5, LLE: 5, RLE: 5 Coma Scale Eye Opening: Spontaneous Coma Scale Motor Response: Obeys Commands Coma Scale Verbal Response: Oriented Coma Scale Total: 15 - Psychiatric Psychiatric exam: Present: normal affect, normal mood - Skin Skin exam: Present: dry, intact, warm Internal Medicine: Result - Labs CBC & Chem 7: 12/16/17 00:27 12/16/17 00:27 Labs: Short CBC 12/16/17 Range/Units 00:27 WBC 9.2 (4.3-11.1) K/mcL Hgb 11.5 L (12.9-16.9) g/dL Hct 33.3 L (37.5-50.1) % Plt Count 85 L (140-400) K/mcL Neutrophils # 5.5 (1.6-8.9) K/mcL BMP 12/16/17 00:27 Sodium 138 Potassium 3.3 L Chloride 112 H Carbon Dioxide 21 L BUN 6 L Creatinine 1.27 Glucose 102 Calcium 8.1 L - ABG Interpretation ABG results: ABG ABG pH 7.34 pH Units (7.32-7.45) 12/14/17 12:17 ABG pCO2 37 mmHg (35-45) 12/14/17 12:17 ABG pO2 174 mmHg (85-104) H 12/14/17 12:17 ABG O2 Saturation 100 % (95-98) H 12/14/17 12:17 - VTE Documentation of Mechanical Device: Intermittent pneumatic compression device Consult Discharge Plan - Plan Referrals: NONE,PCP [Primary Care Provider] -
[2017-12-16] MEDS ORDERED: Aminoglycoside Consult 1 EACH MC ONE (13:00)
[2017-12-16 19:11] LABS: HSV Source CSF
[2017-12-16] MEDS: cloNIDine HCl 0.1 MG TABLET PO SCH (20:21)
[2017-12-16] MEDS: OLANZapine 10 MG TAB.RAPDIS PO SCH (20:21)
[2017-12-17] MEDS: Acyclovir 800 MG in D5% in Water 250 ML IVPB SCH ×2 (00:54→10:20)
[2017-12-17] MEDS: Ampicillin 1,000 MG in 0.9 % Sodium Chloride Mini Bag 100 ML IVPB SCH ×4 (00:55→20:44)
[2017-12-17] MEDS: cefTRIAXone 2,000 MG in Water for inj. (sterile) 20 ML 20 ML IVP SCH (06:42)
[2017-12-17] MEDS: *HR* Heparin 5,000 UNIT/ML VIAL SQ SCH ×2 (06:42→18:08)
[2017-12-17] MEDS: Pantoprazole 40 MG VIAL IVP SCH ×2 (06:42→18:08)
[2017-12-17 06:59] LABS: Basophils % 0.3 %; Hemoglobin 12.1 g/dL (12.9-16.9); Immature Granulocytes % 0.3 % (0-4)
[2017-12-17 07:00] LABS: Eosinophils # 0.2 K/mcL (0.0-0.6); Eosinophils % 2.3 %; Hematocrit 35.5 % (37.5-50.1); Immature Platelets 6.7 % (1.1-6.1); Lymphocytes # 2.5 K/mcL (0.6-4.6); Lymphocytes % 33.8 %; Mean Corpuscular HGB Conc 34.1 g/dL (31.6-35.5); Mean Corpuscular Hemoglobin 29.9 pg (28.0-33.3); Mean Corpuscular Volume 87.7 fL (83.0-100.0); Mean Platelet Volume 11.3 fL (9.4-12.4); Monocytes # 0.7 K/mcL (0.0-1.3); Monocytes % 9.1 %; Red Blood Count 4.05 M/mcL (4.19-5.50); Red Cell Distribution Width 14.3 % (11.5-14.5); Segmented Neutrophils % 54.2 %
[2017-12-17 07:03] LABS: Neutrophils # 4.1 K/mcL (1.6-8.9); Platelet Count 88 K/mcL (140-400)
[2017-12-17 07:52] LABS: Mycoplasma pneumoniae IgG 0.01 U/L (<=0.09)
[2017-12-17 07:57] LABS: BUN/Creatinine Ratio 3 (6-26); Blood Urea Nitrogen 4 mg/dL (8-23); Calcium 8.5 mg/dL (8.6-10.3); Chloride 109 mEq/L (98-107); Glucose 96 mg/dL (70-105); Osmolality,Calculated 285 (280-300); Potassium 3.3 mEq/L (3.5-5.1); Sodium 139 mEq/L (136-145); eGFR For Non-African Americans > 60 (> 60)
--- NOTE | 2017-12-17 08:32 | Neurology Progress Note ---
Date of Encounter: 12/17/17 Time of Encounter: 08:30 Assessment and Plan (1) Aseptic meningitis Current Visit: Yes Status: Acute Mr. Yang 62 yo male presented from home to the emergency department acutely ill with depressed mental status, fever and possible seizure activity. CSF found elevated protein, normal glucose and 7 nucleated cells concerning for aseptic meningitis (likely viral). Viral panel including HSV is pending. CSF gram stain without findings. clinical exam findings: patient had appropriate mental status, no witnessed seizures since evaluation since presentation. Clinical examination demonstrates an acutely ill male, no neck rigidity, photophobia or AMS. 12/15: Mr. Yang 62-year-old male seen and evaluated this morning no acute changes compared to yesterday's examination. Patient is more alert awake interactive. CSF viral panel all negative. HSV is a send out and still pending. Gram stain negative. Patient does have blood cultures with PCR positive for Staphylococcus species and methicillin-resistant gene. Only one blood culture result thus far may be contaminant but cannot rule out at this time. 12/16: Clinical examination today no changes from yesterday. Patient continues to improve daily. HSV culture still pending. Continue clinical management per primary team. After HSV culture returns and if negative may consider discontinuing acyclovir. 12/17: Mr. Yang remains stable without symptoms of meningitis. upon initial evaluation he was found to have elevated CSF protein, stable glucose and slight elevation of nucleated cells. CSF PCR and HSV DNA are all negative. I am suspicious the findings in his CSF may be secondary to acute illness more so than true meningitis. Plan: - Antibiotic continuation of acyclovir, ceftriaxone, ampicillin, vancomycin, may reduce antibiotic coverage per primary team. Subjective Interval history: Mr. Yang 61-year-old male seen evaluated at patient bedside this morning. He is alert awake interactive no acute distress. He states that he does not remember coming to the hospital or the events over the past few days. Although he does remember me from each day he has been here and denies any hallucinations , difficulty with thought process, headaches, blurry vision or any other acute symptoms. His story does not seem completely concise but he is showing clinical improvement. Objective - Constitutional Vitals: Temp Pulse Resp BP Pulse Ox 97.5 F L 70 16 141/77 97 12/17/17 06:00 12/17/17 06:00 12/17/17 06:00 12/17/17 06:00 12/17/17 06:00 General appearance: Present: cooperative, A&O X 3, no acute distress, answers questions appropriately - Head Head exam: Present: atraumatic, normocephalic - Eye Eye exam: Present: PERRL, conjuntiva pink, sclera anicteric Pupils: Present: PERRL - Extremities Exam Extremities exam: Present: warm, radial pulses palpable and symmetrical. Absent : calf tenderness, cyanotic, pedal edema - Neurological Exam Sensorimotor examination: Present: intact Motor Examination: Present: full strength in all major muscle groups Motor examination - right side: 5/5: deltoids, biceps, triceps, wrist flexion, wrist extension, administration vice president, hip flexors, tibialis Anterior, quadriceps, toe extension (EHL), plantarflexion Motor examination - left side: 5/5: deltoids, biceps, triceps, wrist flexion, wrist extension, hip flexors, administration vice president, quadriceps, tibialis Anterior, toe extension (EHL), plantarflexion Reflex and gait examination: intact Reflexes: Biceps: 2+, Triceps: 2+, Brachioradialis: 2+, Patella: 2+, Achilles: 2 + Mental Status Examination: Present: awake, alert, oriented to person, oriented to place, oriented to time, follows commands appropriately, answers questions appropriately, no agnosia, no aphasia, no aproxia Cranial nerve examination: Present: PERRL, EOMI, visual yanes intact, corneal reflexes brisk symmetrically, sensory to face intact, mastication intact, no facial asymmetry is present, no dysarthria, hearing is intact symmetrically, soft palate elevates bilaterally upon phonation, gag reflex intact, flexes SCM and trapezius muscles symmetrically with full power, tongue protrudes midline, no atrophy or facial fasiculations present Cerebellar examination: Present: no dysmetria, performs finger to nose and heel to reyes symmetrically without ataxia, no gait ataxia, no truncal ataxia, no difficulty with rapid alternating movements - VTE Documentation of Mechanical Device: Intermittent pneumatic compression device Results - Laboratory Findings CBC and BMP: 12/17/17 06:21 12/17/17 06:21 Abnormal lab findings: Abnormal lab results RBC 4.05 M/mcL (4.19-5.50) L 12/17/17 06:21 Hgb 12.1 g/dL (12.9-16.9) L 12/17/17 06:21 Hct 35.5 % (37.5-50.1) L 12/17/17 06:21 Plt Count 88 K/mcL (140-400) L 12/17/17 06:21 Immature Plt Fraction 6.7 % (1.1-6.1) H 12/17/17 06:21 ABG pO2 174 mmHg (85-104) H 12/14/17 12:17 ABG HCO3 20 mEq/L (21-27) L 12/14/17 12:17 ABG O2 Saturation 100 % (95-98) H 12/14/17 12:17 ABG Base Excess -5 mEq/L (-2 to 3) L 12/14/17 12:17 Potassium 3.3 mEq/L (3.5-5.1) L 12/17/17 06:21 Chloride 109 mEq/L (98-107) H 12/17/17 06:21 Carbon Dioxide 21 mEq/L (23-29) L 12/16/17 00:27 BUN 4 mg/dL (8-23) L 12/17/17 06:21 BUN/Creatinine Ratio 3 (6-26) L 12/17/17 06:21 POC Glucose 102 (58-89) H 12/14/17 11:02 Calcium 8.5 mg/dL (8.6-10.3) L 12/17/17 06:21 Phosphorus 2.6 mg/dL (2.7-4.5) L 12/15/17 01:07 AST 158 Units/L (13-39) H 12/15/17 01:07 Ammonia 65 mcmol/L (16-53) H 12/14/17 11:19 Creatine Kinase 5068 Units/L (30-223) H 12/14/17 17:01 Serum Total Protein 5.5 g/dL (6.4-8.9) L 12/15/17 01:07 Albumin 2.8 g/dL (3.5-5.7) L 12/15/17 01:07 Albumin/Globulin Ratio 1.0 (1.1-2.2) L 12/15/17 01:07 Procalcitonin 0.39 ng/mL (<=0.10) H 12/15/17 11:15 CSF Tot Nucleated Cells 16 TNC/mcL (0-5) H* 12/14/17 13:00 CSF Glucose 75 mg/dL (40-70) H 12/14/17 13:00 CSF Total Protein 60 mg/dL (15-45) H 12/14/17 13:00 Staphylococcus sp PCR DETECTED (Not Detect) A 12/14/17 11:19 mecA-Methicil Res Gene DETECTED (Not Detect) A 12/14/17 11:19 Consult Discharge Plan - Plan Referrals: NONE,PCP [Primary Care Provider] -
[2017-12-17] MEDS: *HR* LORazepam 1 MG TABLET PO PRN ×2 (09:11→18:13)
--- NOTE | 2017-12-17 15:43 | Internal Med Progress Note ---
Date of Encounter: 12/17/17 Time of Encounter: 15:14 - Assessment and plan (1) Acute metabolic encephalopathy Current Visit: Yes Status: Acute Assessment and plan: Patient had altered mental status on presentation to the emergency department Likely secondary to acute infection This has resolved. Patient follows commands Will need temporarily placed to [facility]CF to finish IV Rocephin (2) Meningitis Current Visit: Yes Status: Suspected Assessment and plan: LP done in ED on admission CSF suggestive of viral meningitis but clinically does not seem so Possibly CSF findings of elevated CSF protein, normal glucose, elevated nucleated cells could be from other acute illness. - Neurology following and discussed with Neurology service attending. Likely aseptic meningitis as opposed to viral etiology. Will DC acyclovir and monitor. (3) Sepsis Current Visit: Yes Status: Acute Assessment and plan: On admission, Fever of 102.3, currently afebrile. Echocardiogram no vegitations Possible but less likely viral meningitis after CSF results. Has been treated with Acyclovir, Vanc, ampicillin, Rocephin. Blood cultures 12/14 contaminate with Staph epidermidis (1 of 2 sample) Blood cultures 12/15: no growth to date - No longer septic - Continue IV Rocephin for 10 days on discharge Qualifiers: Sepsis type: methicillin susceptible Staphylococcus aureus Qualified Code(s ): A41.01 - Sepsis due to Methicillin susceptible Staphylococcus aureus (4) Acute on chronic kidney failure Current Visit: Yes Status: Acute Assessment and plan: Has acute elevation in Cr and acute decrease in the patients GFR Will continue to provde IV hydration. Resolved with IV hydration Qualifiers: Acute renal failure type: unspecified Chronic kidney disease stage: stage 3 (moderate) Qualified Code(s): N17.9 - Acute kidney failure, unspecified; N18.3 - Chronic kidney disease, stage 3 (moderate); N18.3 - Chronic kidney disease, stage 3 (moderate) (5) Hematemesis Current Visit: Yes Status: Acute Assessment and plan: Patient had an episode of hematemesis on admission. Family member states that the vomit appeared to be a dark red color and the clothing of the patient had a red tinge stains Hemoglobin is currently stable Continue to trend H&H every 8 hours. NPO at midnight Consult has been placed to GI. Qualifiers: Nausea presence: with nausea Qualified Code(s): K92.0 - Hematemesis (6) Schizoaffective disorder Current Visit: No Status: Chronic Qualifiers: Schizoaffective disorder type: bipolar Qualified Code(s): F25.0 - Schizoaffective disorder, bipolar type (7) DVT prophylaxis Current Visit: Yes Status: Acute Assessment and plan: Heparin 5,000 Sq - Subjective Interval history: No complaints, no acute events. - Constitutional Vitals: Temp Pulse Resp BP Pulse Ox 97.7 F 71 15 149/85 97 12/17/17 11:00 12/17/17 11:00 12/17/17 11:00 12/17/17 11:00 12/17/17 11:00 General appearance: Present: A&O X 3 Exam: - Head Head exam: Present: normocephalic Additional comments: Appears to have injury to the right eye after a recent fall. - Eye Eye exam: Present: EOMI, PERRL, scleral icterus - Neck Neck exam general surgery: Present: full ROM, normal inspection, trachea midline - Respiratory Respiratory exam: Present: CTAB. Absent: accessory muscle use, rales, rhonchi, wheezes - Cardiovascular Cardiovascular exam: Present: RRR, +S1, +S2. Absent: diastolic murmur, gallop, rubs, systolic murmur - GI/Abdominal GI/Abdominal exam: Present: soft, tenderness (Mild epigastric tenderness ), no peritoneal signs. Absent: distended - Extremities Exam Extremities exam: Present: warm. Absent: pedal edema Additional comments: Clubbing of the upper extremity digits - Neurological Exam Neurological exam: Present: alert, CN II-XII intact, oriented X3, no focal deficits. Absent: motor sensory deficit, pronater drift, facial droop, speech deficit - Expanded Neurological Exam Neurological exam expanded: Present: protecting the airway Cranial Nerves: EOM's intact PM: Normal, gag reflex PM: Normal, nystagmus PM: Normal, tongue deviation PM: Normal Cerebellar function: finger to nose: Normal, heel to reyes: Abnormal Left Upper motor neuron: pronator drift: Normal Sensory exam: lower extremity light touch: Normal, upper extremity light touch: Normal Neuro motor strength exam: LUE: 5, RUE: 5, LLE: 5, RLE: 5 Coma Scale Eye Opening: Spontaneous Coma Scale Motor Response: Obeys Commands Coma Scale Verbal Response: Oriented Coma Scale Total: 15 - Psychiatric Psychiatric exam: Present: normal affect, normal mood - Skin Skin exam: Present: dry, intact, warm Internal Medicine: Result - Labs CBC & Chem 7: 12/17/17 06:21 12/17/17 06:21 Labs: Short CBC 12/17/17 Range/Units 06:21 WBC 7.5 (4.3-11.1) K/mcL Hgb 12.1 L (12.9-16.9) g/dL Hct 35.5 L (37.5-50.1) % Plt Count 88 L (140-400) K/mcL Neutrophils # 4.1 (1.6-8.9) K/mcL BMP 12/17/17 06:21 Sodium 139 Potassium 3.3 L Chloride 109 H BUN 4 L Creatinine 1.19 Glucose 96 Calcium 8.5 L - ABG Interpretation ABG results: ABG ABG pH 7.34 pH Units (7.32-7.45) 12/14/17 12:17 ABG pCO2 37 mmHg (35-45) 12/14/17 12:17 ABG pO2 174 mmHg (85-104) H 12/14/17 12:17 ABG O2 Saturation 100 % (95-98) H 12/14/17 12:17 - Impressions Impressions Echocardiogram 12/16/17 10:17 Impressions: LVEF 50-55%. Normal LV chamber size, wall thickness and function. Moderate left ventricular diastolic dysfunction. Normal right ventricular structure and function. Mild aortic regurgitation. Unable to estimate RVSP due to lack of TR jet. No obvious vegetations visualized. Repeat study or consider VERA as clinically indicated. Left Ventricular Wall Motion: Rest Echo Findings All wall segments showed normal motion. Findings: Study Quality * Technically adequate exam. ECG Findings * Normal sinus rhythm. Left Ventricle * LVEF 50-55%. * Normal LV chamber size, wall thickness and function. * Moderate left ventricular diastolic dysfunction. Right Ventricle * Normal right ventricular structure and function. Left Atrium * Normal left atrial size. Right Atrium * Normal right atrial size. Interatrial Septum * Interatrial septum not well evaluated. Aortic Valve * Moderately sclerotic aortic valve leaflets. Difficult to determine the number of leaflets. * Mild aortic regurgitation. * No aortic stenosis. Mitral Valve * Normal mitral valve structure and function. * No mitral regurgitation. * No mitral stenosis. Tricuspid Valve * Normal tricuspid valve structure and function. * No tricuspid regurgitation. * Unable to estimate RVSP due to lack of TR jet. Pulmonic Valve * Normal pulmonic valve structure and function. * No pulmonic regurgitation. Aorta * Normally sized aortic root. Pericardium * The pericardium appears normal. IVC * Normal IVC dimensions and inspiratory collapse. Pulmonary Artery * Normal visualized portions of the main pulmonary artery. - VTE Documentation of Mechanical Device: Intermittent pneumatic compression device Consult Discharge Plan - Plan Referrals: NONE,PCP [Primary Care Provider] -
[2017-12-17 16:13] LABS: Carbon Dioxide 24 mEq/L (23-29)
[2017-12-17] MEDS: OLANZapine 10 MG TAB.RAPDIS PO SCH (20:42)
[2017-12-17] MEDS: cloNIDine HCl 0.1 MG TABLET PO SCH (20:43)
[2017-12-17] MEDS: traZODone 50 MG TABLET PO PRN (20:45)
[2017-12-18] MEDS: Ampicillin 1,000 MG in 0.9 % Sodium Chloride Mini Bag 100 ML IVPB SCH ×4 (02:07→22:06)
[2017-12-18 05:27] LABS: Basophils % 0.3 %; Eosinophils # 0.2 K/mcL (0.0-0.6); Eosinophils % 2.7 %; Hematocrit 34.8 % (37.5-50.1); Hemoglobin 11.8 g/dL (12.9-16.9); Immature Granulocytes % 0.4 % (0-4); Immature Platelets 7.6 % (1.1-6.1); Lymphocytes # 2.5 K/mcL (0.6-4.6); Lymphocytes % 33.9 %; Mean Corpuscular HGB Conc 33.9 g/dL (31.6-35.5); Mean Corpuscular Hemoglobin 29.6 pg (28.0-33.3); Mean Corpuscular Volume 87.4 fL (83.0-100.0); Mean Platelet Volume 11.9 fL (9.4-12.4); Monocytes # 0.8 K/mcL (0.0-1.3); Monocytes % 11.1 %; Neutrophils # 3.8 K/mcL (1.6-8.9); Red Blood Count 3.98 M/mcL (4.19-5.50); Red Cell Distribution Width 14.3 % (11.5-14.5); Segmented Neutrophils % 51.6 %
[2017-12-18 05:31] LABS: Platelet Count 90 K/mcL (140-400)
[2017-12-18 05:42] LABS: BUN/Creatinine Ratio 4 (6-26); Blood Urea Nitrogen 5 mg/dL (8-23); Calcium 8.6 mg/dL (8.6-10.3); Carbon Dioxide 27 mEq/L (23-29); Chloride 104 mEq/L (98-107); Glucose 102 mg/dL (70-105); Osmolality,Calculated 283 (280-300); Potassium 3.4 mEq/L (3.5-5.1); Sodium 138 mEq/L (136-145); eGFR For Non-African Americans 59 (> 60)
[2017-12-18 06:03] LABS: Hepatitis A Antibody IgM Nonreactive (Nonreactive)
[2017-12-18] MEDS: Pantoprazole 40 MG VIAL IVP SCH ×2 (06:11→16:21)
[2017-12-18] MEDS: *HR* Heparin 5,000 UNIT/ML VIAL SQ SCH ×2 (06:12→16:21)
[2017-12-18] MEDS: cefTRIAXone 2,000 MG in Water for inj. (sterile) 20 ML 20 ML IVP SCH (08:26)
[2017-12-18] MEDS: *HR* LORazepam 1 MG TABLET PO PRN (08:26)
--- NOTE | 2017-12-18 14:09 | Internal Med Progress Note ---
Date of Encounter: 12/18/17 Time of Encounter: 14:04 - Assessment and plan (1) Acute metabolic encephalopathy Current Visit: Yes Status: Acute Assessment and plan: Patient had altered mental status on presentation to ED - Likely polypharmacy. - Sister says he takes meds incorrectly, sometimes taking too much. - He lives with mother at home who is unable to care for him and help with medication administration. - Could be aseptic meningitis but less likely after thorough evaluation during this admission. - Likely has acute infection as well - possible LRTI as he was cough with sputum prior to admission per sister -seems resolving with Rocephin. - Neurology evaluated patient for meningitis as possible cause, less likely and acyclovir was discontinued. - Symptoms are resolved, he is at baseline Patient not safe in my opinion to go home to administer these medications himself. I do not believe his mother or the patient himself are able to safely care for him. Not taking antipsychiotics are having adverse effects as seen by acute kidney injury and altered mental status. (2) Sepsis Current Visit: Yes Status: Acute Assessment and plan: On admission, Fever of 102.3, with tachycarda 136 bpm, RR 20 breaths per minute. Possible but less likely viral meningitis after CSF results. Has been treated with Acyclovir, Vanc, ampicillin, Rocephin. CSF suggestive of viral meningitis, elevated CSF protein, normal glucose, elevated nucleated cells could be from other acute illness. Echocardiogram no vegitations Blood cultures 12/14 contaminate with Staph epidermidis (1 of 2 sample) Blood cultures 12/15: no growth to date - No longer septic - Continue IV Rocephin and Ampicillin Qualifiers: Sepsis type: methicillin susceptible Staphylococcus aureus Qualified Code(s ): A41.01 - Sepsis due to Methicillin susceptible Staphylococcus aureus (3) Acute on chronic kidney failure Current Visit: Yes Status: Acute Assessment and plan: Has acute elevation in Cr and acute decrease in the patients GFR Resolved with IV hydration Qualifiers: Acute renal failure type: unspecified Chronic kidney disease stage: stage 3 (moderate) Qualified Code(s): N17.9 - Acute kidney failure, unspecified; N18.3 - Chronic kidney disease, stage 3 (moderate); N18.3 - Chronic kidney disease, stage 3 (moderate) (4) Hematemesis Current Visit: Yes Status: Acute Assessment and plan: Patient had an episode of hematemesis on admission. Family member states that the vomit appeared to be a dark red color and the clothing of the patient had a red tinge stains Hemoglobin is currently stable GI consulted, workup planned to be done as outpatient. Qualifiers: Nausea presence: with nausea Qualified Code(s): K92.0 - Hematemesis (5) Schizoaffective disorder Current Visit: No Status: Chronic Assessment and plan: Taking: Fluphenazine 2.5 mg PO BID Zyprexa 30 mg HS Qualifiers: Schizoaffective disorder type: bipolar Qualified Code(s): F25.0 - Schizoaffective disorder, bipolar type (6) DVT prophylaxis Current Visit: Yes Status: Acute Assessment and plan: Heparin 5,000 Sq - Subjective Interval history: No complaints, no acute events. Sister at bedside. Concerned that patient is not taking medications correctly at home. - Constitutional Vitals: Temp Pulse Resp BP Pulse Ox 97.8 F 77 15 120/85 97 12/18/17 11:57 12/18/17 11:57 12/18/17 11:57 12/18/17 11:57 12/18/17 11:57 General appearance: Present: A&O X 3 Exam: - Head Head exam: Present: normocephalic Additional comments: Appears to have injury to the right eye after a recent fall. - Eye Eye exam: Present: EOMI, PERRL, scleral icterus - Neck Neck exam general surgery: Present: full ROM, normal inspection, trachea midline - Respiratory Respiratory exam: Present: CTAB. Absent: accessory muscle use, rales, rhonchi, wheezes - Cardiovascular Cardiovascular exam: Present: RRR, +S1, +S2. Absent: diastolic murmur, gallop, rubs, systolic murmur - GI/Abdominal GI/Abdominal exam: Present: soft, tenderness (Mild epigastric tenderness ), no peritoneal signs. Absent: distended - Extremities Exam Extremities exam: Present: warm. Absent: pedal edema Additional comments: Clubbing of the upper extremity digits - Neurological Exam Neurological exam: Present: alert, CN II-XII intact, oriented X3, no focal deficits. Absent: motor sensory deficit, pronater drift, facial droop, speech deficit - Expanded Neurological Exam Neurological exam expanded: Present: protecting the airway Cranial Nerves: EOM's intact PM: Normal, gag reflex PM: Normal, nystagmus PM: Normal, tongue deviation PM: Normal Cerebellar function: finger to nose: Normal, heel to reyes: Abnormal Left Upper motor neuron: pronator drift: Normal Sensory exam: lower extremity light touch: Normal, upper extremity light touch: Normal Neuro motor strength exam: LUE: 5, RUE: 5, LLE: 5, RLE: 5 Coma Scale Eye Opening: Spontaneous Coma Scale Motor Response: Obeys Commands Coma Scale Verbal Response: Oriented Coma Scale Total: 15 - Psychiatric Psychiatric exam: Present: normal affect, normal mood - Skin Skin exam: Present: dry, intact, warm Internal Medicine: Result - Labs CBC & Chem 7: 12/18/17 04:28 12/18/17 04:28 Labs: Short CBC 12/18/17 Range/Units 04:28 WBC 7.3 (4.3-11.1) K/mcL Hgb 11.8 L (12.9-16.9) g/dL Hct 34.8 L (37.5-50.1) % Plt Count 90 L (140-400) K/mcL Neutrophils # 3.8 (1.6-8.9) K/mcL BMP 12/17/17 12/18/17 06:21 04:28 Sodium 138 Potassium 3.4 L Chloride 104 Carbon Dioxide 24 27 BUN 5 L Creatinine 1.23 Glucose 102 Calcium 8.6 - ABG Interpretation ABG results: ABG ABG pH 7.34 pH Units (7.32-7.45) 12/14/17 12:17 ABG pCO2 37 mmHg (35-45) 12/14/17 12:17 ABG pO2 174 mmHg (85-104) H 12/14/17 12:17 ABG O2 Saturation 100 % (95-98) H 12/14/17 12:17 - VTE Documentation of Mechanical Device: Intermittent pneumatic compression device Consult Discharge Plan - Plan Referrals: NONE,PCP [Primary Care Provider] - Prescriptions: cefTRIAXone [Rocephin] 2,000 mg IVPB Q24H 10 Days #10 vial
[2017-12-18] MEDS: OLANZapine 10 MG TAB.RAPDIS PO SCH (22:06)
[2017-12-18] MEDS: cloNIDine HCl 0.1 MG TABLET PO SCH (22:06)
[2017-12-19] MEDS: Ampicillin 1,000 MG in 0.9 % Sodium Chloride Mini Bag 100 ML IVPB SCH ×2 (04:18→09:09)
[2017-12-19] MEDS: *HR* LORazepam 1 MG TABLET PO PRN ×3 (04:27→20:54)
[2017-12-19 04:36] LABS: Basophils % 0.2 %; Eosinophils # 0.2 K/mcL (0.0-0.6); Eosinophils % 2.8 %; Hematocrit 37.4 % (37.5-50.1); Hemoglobin 12.7 g/dL (12.9-16.9); Immature Granulocytes % 0.2 % (0-4); Lymphocytes # 3.8 K/mcL (0.6-4.6); Lymphocytes % 45.7 %; Mean Corpuscular Hemoglobin 29.7 pg (28.0-33.3); Mean Corpuscular Volume 87.6 fL (83.0-100.0); Mean Platelet Volume 11.6 fL (9.4-12.4); Monocytes # 0.8 K/mcL (0.0-1.3); Monocytes % 10.2 %; Neutrophils # 3.4 K/mcL (1.6-8.9); Platelet Count 107 K/mcL (140-400); Red Blood Count 4.27 M/mcL (4.19-5.50); Red Cell Distribution Width 14.5 % (11.5-14.5); Segmented Neutrophils % 40.9 %
[2017-12-19 04:54] LABS: Potassium 4.1 mEq/L (3.5-5.1)
[2017-12-19] MEDS: Pantoprazole 40 MG VIAL IVP SCH (06:14)
[2017-12-19] MEDS: *HR* Heparin 5,000 UNIT/ML VIAL SQ SCH ×2 (06:14→18:16)
[2017-12-19] MEDS: cefTRIAXone 2,000 MG in Water for inj. (sterile) 20 ML 20 ML IVP SCH (08:59)
--- NOTE | 2017-12-19 14:29 | Internal Med Progress Note ---
Date of Encounter: 12/19/17 Time of Encounter: 14:26 - Assessment and plan (1) Acute metabolic encephalopathy Current Visit: Yes Status: Acute Assessment and plan: Patient had altered mental status on presentation to ED - Likely polypharmacy. - Sister says he takes meds incorrectly, sometimes taking too much. - He lives with mother at home who is unable to care for him and help with medication administration. - Could be aseptic meningitis but less likely after thorough evaluation during this admission. - Likely has acute infection as well - possible LRTI as he was cough with sputum prior to admission per sister -seems resolving with Rocephin. - Neurology evaluated patient for meningitis as possible cause, less likely and acyclovir was discontinued. - Symptoms are resolved, he is at baseline Patient not safe in my opinion to go home to administer these medications himself. I do not believe his mother or the patient himself are able to safely care for him. Not taking antipsychiotics are having adverse effects as seen by acute kidney injury and altered mental status. 12/19: Discontinue ampicillin and monitor, continue Rocephin (2) Sepsis Current Visit: Yes Status: Acute Assessment and plan: On admission, Fever of 102.3, with tachycarda 136 bpm, RR 20 breaths per minute. Possible but less likely viral meningitis after CSF results. Has been treated with Acyclovir, Vanc, ampicillin, Rocephin. CSF suggestive of viral meningitis, elevated CSF protein, normal glucose, elevated nucleated cells could be from other acute illness. Echocardiogram no vegitations Blood cultures 12/14 contaminate with Staph epidermidis (1 of 2 sample) Blood cultures 12/15: no growth to date - No longer septic - Continue IV Rocephin and Ampicillin Qualifiers: Sepsis type: methicillin susceptible Staphylococcus aureus Qualified Code(s ): A41.01 - Sepsis due to Methicillin susceptible Staphylococcus aureus (3) Acute on chronic kidney failure Current Visit: Yes Status: Acute Assessment and plan: Has acute elevation in Cr and acute decrease in the patients GFR Resolved with IV hydration Qualifiers: Acute renal failure type: unspecified Chronic kidney disease stage: stage 3 (moderate) Qualified Code(s): N17.9 - Acute kidney failure, unspecified; N18.3 - Chronic kidney disease, stage 3 (moderate); N18.3 - Chronic kidney disease, stage 3 (moderate) (4) Hematemesis Current Visit: Yes Status: Acute Assessment and plan: Patient had an episode of hematemesis on admission. Family member states that the vomit appeared to be a dark red color and the clothing of the patient had a red tinge stains Hemoglobin is currently stable GI consulted, workup planned to be done as outpatient. Qualifiers: Nausea presence: with nausea Qualified Code(s): K92.0 - Hematemesis (5) Schizoaffective disorder Current Visit: No Status: Chronic Assessment and plan: Taking: Fluphenazine 2.5 mg PO BID Zyprexa 30 mg HS Qualifiers: Schizoaffective disorder type: bipolar Qualified Code(s): F25.0 - Schizoaffective disorder, bipolar type (6) DVT prophylaxis Current Visit: Yes Status: Acute Assessment and plan: Heparin 5,000 Sq - Subjective Interval history: No complaints, no acute events. 3/2: Sister at bedside concerned that patient is not taking medications correctly at home. 3/3: no complaints, no acute events - Constitutional Vitals: Temp Pulse Resp BP Pulse Ox 97.7 F 67 17 129/76 97 12/19/17 06:58 12/19/17 11:21 12/19/17 11:21 12/19/17 11:21 12/19/17 11:21 General appearance: Present: A&O X 3 Exam: - Head Head exam: Present: normocephalic Additional comments: Appears to have injury to the right eye after a recent fall. - Eye Eye exam: Present: EOMI, PERRL, scleral icterus - Neck Neck exam general surgery: Present: full ROM, normal inspection, trachea midline - Respiratory Respiratory exam: Present: CTAB. Absent: accessory muscle use, rales, rhonchi, wheezes - Cardiovascular Cardiovascular exam: Present: RRR, +S1, +S2. Absent: diastolic murmur, gallop, rubs, systolic murmur - GI/Abdominal GI/Abdominal exam: Present: soft, tenderness (Mild epigastric tenderness ), no peritoneal signs. Absent: distended - Extremities Exam Extremities exam: Present: warm. Absent: pedal edema Additional comments: Clubbing of the upper extremity digits - Neurological Exam Neurological exam: Present: alert, CN II-XII intact, oriented X3, no focal deficits. Absent: motor sensory deficit, pronater drift, facial droop, speech deficit - Psychiatric Psychiatric exam: Present: normal affect, normal mood - Skin Skin exam: Present: dry, intact, warm Internal Medicine: Result - Labs CBC & Chem 7: 12/19/17 04:00 12/19/17 04:00 Labs: Short CBC 12/19/17 Range/Units 04:00 WBC 8.3 (4.3-11.1) K/mcL Hgb 12.7 L (12.9-16.9) g/dL Hct 37.4 L (37.5-50.1) % Plt Count 107 L (140-400) K/mcL Neutrophils # 3.4 (1.6-8.9) K/mcL BMP 12/19/17 04:00 Sodium 137 Potassium 4.1 Chloride 103 Carbon Dioxide 27 BUN 7 L Creatinine 1.45 H Glucose 93 Calcium 9.0 - ABG Interpretation ABG results: ABG ABG pH 7.34 pH Units (7.32-7.45) 12/14/17 12:17 ABG pCO2 37 mmHg (35-45) 12/14/17 12:17 ABG pO2 174 mmHg (85-104) H 12/14/17 12:17 ABG O2 Saturation 100 % (95-98) H 12/14/17 12:17 - VTE Documentation of Mechanical Device: Intermittent pneumatic compression device Consult Discharge Plan - Plan Referrals: NONE,PCP [Primary Care Provider] - Prescriptions: cefTRIAXone [Rocephin] 2,000 mg IVPB Q24H 10 Days #10 vial
[2017-12-19] MEDS: OLANZapine 10 MG TAB.RAPDIS PO SCH (20:36)
[2017-12-19] MEDS: cloNIDine HCl 0.1 MG TABLET PO SCH (20:36)
[2017-12-19] MEDS: traZODone 50 MG TABLET PO PRN (20:54)
[2017-12-20] MEDS: *HR* LORazepam 1 MG TABLET PO PRN ×2 (02:50→12:15)
[2017-12-20] MEDS: *HR* Heparin 5,000 UNIT/ML VIAL SQ SCH ×2 (05:39→18:06)
[2017-12-20 06:14] LABS: Eosinophils % 2.9 %; Hematocrit 34.4 % (37.5-50.1); Hemoglobin 11.8 g/dL (12.9-16.9); Immature Granulocytes % 0.1 % (0-4); Immature Platelets 6.2 % (1.1-6.1); Lymphocytes % 44.6 %; Mean Corpuscular HGB Conc 34.3 g/dL (31.6-35.5); Mean Corpuscular Hemoglobin 30.3 pg (28.0-33.3); Mean Corpuscular Volume 88.2 fL (83.0-100.0); Mean Platelet Volume 11.6 fL (9.4-12.4); Monocytes % 12.9 %; Red Cell Distribution Width 14.4 % (11.5-14.5); Segmented Neutrophils % 39.2 %
[2017-12-20 06:15] LABS: Basophils % 0.3 %; Eosinophils # 0.2 K/mcL (0.0-0.6); Lymphocytes # 3.3 K/mcL (0.6-4.6); Neutrophils # 2.9 K/mcL (1.6-8.9)
[2017-12-20 06:16] LABS: Platelet Count 93 K/mcL (140-400)
[2017-12-20 06:23] LABS: BUN/Creatinine Ratio 7 (6-26); Blood Urea Nitrogen 9 mg/dL (8-23); Calcium 8.5 mg/dL (8.6-10.3); Carbon Dioxide 27 mEq/L (23-29); Chloride 105 mEq/L (98-107); Glucose 99 mg/dL (70-105); Osmolality,Calculated 279 (280-300); Potassium 3.7 mEq/L (3.5-5.1); Sodium 135 mEq/L (136-145); eGFR For Non-African Americans 53 (> 60)
[2017-12-20] MEDS: cefTRIAXone 2,000 MG in Water for inj. (sterile) 20 ML 20 ML IVP SCH (08:43)
--- NOTE | 2017-12-20 16:38 | Discharge Summary ---
Orders not resulted at time of discharge: Pending orders 12/14/17 13:00 VDRL reflex titer, CSF Stat 12/15/17 10:16 Culture,Sputum with Gram Stain [RM] Routine 12/15/17 11:15 Culture,Blood [BC] Routine 12/19/17 14:28 Procalcitonin Routine 12/21/17 04:00 BMP [Basic Metabolic Panel] AM 0400 Complete Blood Count [HEME] AM 0400 Date of Encounter: 12/20/17 Time of Encounter: 16:36 - Discharge Diagnosis (1) Acute metabolic encephalopathy Priority: Primary Status: Acute (2) Sepsis Priority: Secondary Status: Acute Qualifiers: Sepsis type: methicillin susceptible Staphylococcus aureus Qualified Code(s ): A41.01 - Sepsis due to Methicillin susceptible Staphylococcus aureus (3) Acute on chronic kidney failure Priority: Secondary Status: Acute Qualifiers: Acute renal failure type: unspecified Chronic kidney disease stage: stage 3 (moderate) Qualified Code(s): N17.9 - Acute kidney failure, unspecified; N18.3 - Chronic kidney disease, stage 3 (moderate); N18.3 - Chronic kidney disease, stage 3 (moderate) (4) Hematemesis Priority: Secondary Status: Acute Qualifiers: Nausea presence: with nausea Qualified Code(s): K92.0 - Hematemesis (5) Schizoaffective disorder Priority: Secondary Status: Chronic Qualifiers: Schizoaffective disorder type: bipolar Qualified Code(s): F25.0 - Schizoaffective disorder, bipolar type (6) DVT prophylaxis Priority: Secondary Status: Acute Hospital course: Mr. Yang is a 62 year old male was brought to the emergency department via EMS after having seizure-like activity. Family states they are at home with him when they heard a loud noise coming from another room. When the mother went to the patient's room to see what had happened she saw the patient on the floor with some jerking like movements. She also states that the patient had vomited on the floor and on his clothes prior to her getting into the room. She states that he was unarousable and would not get up. She became very concerned at this time and felt that the patient should be brought to the hospital for further evaluation. Patient's mother then called 911 and had him brought in by squad. Family states that the patient medicates himself and he is not taking his medications correctly. He has a history of overmedicating himself, per family. Patient met SIRS criteria for fevers, tachycardia. He had lactic acid of 9.8 on admission. Patient had recent cough with excessive sputum production in the past several days. In the ED a chest x-ray was negative. An LP bradley with CSF findings of elevated wbc, glucose, and protein. These findings are associated with viral meningitis and so Neurology was consulted. He was empirically started on vancomycin, Rocephin, ampicillin, and acyclovir. Neurology was consulted and it was noted that patient did not have any neck rigidity or photophobia on evaluation. Lactic acidosis resolved with IV fluids. Patient's altered mental status resolved shortly after correction of acidosis. HSV PCR was negative and antiviral therapy was discontinued. Blood cultures from 12/14/17 showed Thuy epidermidis in 1 of 2 vials, likely contaminate. Repeat blood cultures were negative. CSF cultures retruned negative as well. Patient mental status remained improved since correcting acidosis. He was continued on Rocephin for possible lower respiratory tract infection which is responding to Rocephin. Patient is unable to take care of himself and take medications at home. Patient is stable for discharge but is currently in process for placement. - Time Spent with Patient Total time spent providing and/or coordinating discharge services: - Discharge Medications Prescriptions: cefTRIAXone [Rocephin] 2,000 mg IVPB Q24H 10 Days #10 vial Home Medications: LORazepam [Ativan] 1 mg PO TID 10/29/15 [History] OLANZapine [Zyprexa] 30 mg PO HS 10/29/15 [History] Trihexyphenidyl [Artane] 2 mg PO BID 10/29/15 [History] Fluphenazine [Prolixin] 2.5 mg PO BID #8 tablet 05/03/17 [Rx] cloNIDine HCl [CloNIDine HCl] 0.1 mg PO HS 12/14/17 [History] traZODone [TraZODone] 400 mg PO HS 12/14/17 [History] cefTRIAXone [Rocephin] 2,000 mg IVPB Q24H 10 Days #10 vial 12/17/17 [Rx] Omeprazole [PriLOSEC] 20 mg PO Q12HR capsule. 12/20/17 [Rx] Allergies/Adverse Reactions: 3 Allergy/AdvReac Type Severity Reaction Status Date / Time No Known Allergies Allergy Verified 10/29/15 17:34 Date of admission: 12/14/17 15:42 Primary care physician: PCP NONE Consults: 12/14/17 17:13 Consult to Composing Room Machinist [CONS] Routine Reason for SW Consult: Patient has psychiatric issues and may be noncompliant with medications. Unsure of his current living condition. 12/14/17 17:22 Consult to Gastroenterology [CONS] Routine Consulting Provider: Gastroenterology Najma Reason for Consult: hematemesis Call Completed: Yes Consult to Neurology [CONS] Routine Consulting Provider: [facility] Reason for Consult: AMS, questionable seizure, viral meningitis Call Completed: Yes 12/16/17 10:24 Consult to Occupational Therapy [CONS] Routine Comment: Evaluate, develop and implement POC Reason for Consult: Evaluate, develop and implement POC Consult to Physical Therapy [CONS] Routine Comment: Evaluate, develop and implement POC Reason for Consult: Disposition planning. Therapy - weakness in bed. Discharging clinician: Lisa Macedo - Constitutional Vitals: Temp Pulse Resp BP Pulse Ox 97.6 F 81 16 116/75 94 12/20/17 08:00 12/20/17 08:00 12/20/17 08:00 12/20/17 08:00 12/20/17 08:55 General appearance: Present: A&O X 3 - Head Head exam: Present: atraumatic, normocephalic - Eye Eye exam: Present: PERRL, conjuntiva pink, sclera anicteric Pupils: Present: PERRL - Neck Neck exam general surgery: Present: supple, trachea midline. Absent: lymphadenopathy - Respiratory Respiratory exam: Present: CTAB. Absent: accessory muscle use, rales, rhonchi, wheezes - Cardiovascular Cardiovascular exam: Present: RRR, +S1, +S2. Absent: diastolic murmur, gallop, rubs, systolic murmur - GI/Abdominal GI/Abdominal exam: Present: normal bowel sounds, soft, no peritoneal signs. Absent: distended, tenderness - Extremities Exam Extremities exam: Present: warm, radial pulses palpable and symmetrical. Absent : calf tenderness, cyanotic, pedal edema - Neurological Exam Neurological exam: Present: CN II-XII intact, oriented X3, no focal deficits. Absent: pronater drift, facial droop, speech deficit - Skin Skin exam: Present: dry, intact - Patient Status Disposition: Transfer SNF Condition: Fair Functional capacity at discharge: independent ambulation Overall status at discharge: patient is back to baseline - Discharge Instructions Follow Up With: NONE,PCP [Primary Care Provider] - - Diet and Activity Activity: as per physical therapy Diet: regular diet - VTE Documentation of Mechanical Device: Intermittent pneumatic compression device
[2017-12-20] MEDS: cloNIDine HCl 0.1 MG TABLET PO SCH (21:39)
[2017-12-20] MEDS: traZODone 50 MG TABLET PO PRN (21:39)
[2017-12-20] MEDS: OLANZapine 10 MG TAB.RAPDIS PO SCH (21:39)
[2017-12-21] MEDS: *HR* Heparin 5,000 UNIT/ML VIAL SQ SCH ×2 (05:03→17:39)
[2017-12-21] MEDS: *HR* LORazepam 1 MG TABLET PO PRN ×3 (05:13→20:52)
[2017-12-21 05:50] LABS: BUN/Creatinine Ratio 7 (6-26); Blood Urea Nitrogen 10 mg/dL (8-23); Calcium 8.7 mg/dL (8.6-10.3); Carbon Dioxide 27 mEq/L (23-29); Chloride 104 mEq/L (98-107); Glucose 96 mg/dL (70-105); Osmolality,Calculated 281 (280-300); Potassium 3.9 mEq/L (3.5-5.1); Sodium 136 mEq/L (136-145); eGFR For Non-African Americans 50 (> 60)
[2017-12-21 05:52] LABS: Hemoglobin 12.2 g/dL (12.9-16.9); Immature Granulocytes % 0.3 % (0-4); Mean Platelet Volume 11.6 fL (9.4-12.4)
[2017-12-21 05:54] LABS: Basophils % 0.4 %; Eosinophils # 0.2 K/mcL (0.0-0.6); Eosinophils % 2.9 %; Hematocrit 36.2 % (37.5-50.1); Immature Platelets 7.3 % (1.1-6.1); Lymphocytes # 3.7 K/mcL (0.6-4.6); Lymphocytes % 48.4 %; Mean Corpuscular HGB Conc 33.7 g/dL (31.6-35.5); Mean Corpuscular Hemoglobin 29.9 pg (28.0-33.3); Mean Corpuscular Volume 88.7 fL (83.0-100.0); Monocytes # 0.8 K/mcL (0.0-1.3); Neutrophils # 2.8 K/mcL (1.6-8.9); Red Blood Count 4.08 M/mcL (4.19-5.50); Red Cell Distribution Width 14.8 % (11.5-14.5)
[2017-12-21 05:57] LABS: Platelet Count 96 K/mcL (140-400)
--- NOTE | 2017-12-21 09:17 | Internal Med Progress Note ---
Date of Encounter: 12/21/17 Time of Encounter: 09:14 - Assessment and plan (1) Acute metabolic encephalopathy Current Visit: Yes Status: Acute Assessment and plan: Patient had altered mental status on presentation to ED - Likely polypharmacy. Sister says he takes meds incorrectly, sometimes taking too much. He lives with mother at home who is unable to care for him and help with medication administration. - Could be aseptic meningitis but less likely after thorough evaluation by Neurology during this admission. Acyclovir, ampicillin, vancomycin have been discontinued. HSV PCR negative. - Likely has acute infection as well. Suspect LRTI as he was cough with sputum prior to admission per sister. Symptoms resolved with Rocephin - Symptoms are resolved, he is at baseline Patient not safe in my opinion to go home to administer these medications himself. I do not believe his mother or the patient himself are able to safely care for him. Not taking antipsychiotics are having adverse effects as seen by acute kidney injury and altered mental status. (2) Sepsis Current Visit: Yes Status: Acute Assessment and plan: On admission, Fever of 102.3, with tachycarda 136 bpm, RR 20 breaths per minute. Possible but less likely viral meningitis after CSF results. Has been treated with Acyclovir, Vanc, ampicillin, Rocephin. CSF suggestive of viral meningitis, elevated CSF protein, normal glucose, elevated nucleated cells could be from other acute illness. Echocardiogram no vegitations Blood cultures 12/14 contaminate with Staph epidermidis (1 of 2 sample) Blood cultures 12/15: no growth to date - No longer septic - Continue IV Rocephin and Ampicillin Qualifiers: Sepsis type: methicillin susceptible Staphylococcus aureus Qualified Code(s ): A41.01 - Sepsis due to Methicillin susceptible Staphylococcus aureus (3) Acute on chronic kidney failure Current Visit: Yes Status: Acute Assessment and plan: Has acute elevation in Cr and acute decrease in the patients GFR Resolved with IV hydration Qualifiers: Acute renal failure type: unspecified Chronic kidney disease stage: stage 3 (moderate) Qualified Code(s): N17.9 - Acute kidney failure, unspecified; N18.3 - Chronic kidney disease, stage 3 (moderate); N18.3 - Chronic kidney disease, stage 3 (moderate) (4) Hematemesis Current Visit: Yes Status: Acute Assessment and plan: Patient had an episode of hematemesis on admission. Family member states that the vomit appeared to be a dark red color and the clothing of the patient had a red tinge stains Hemoglobin is currently stable GI consulted, workup planned to be done as outpatient. Qualifiers: Nausea presence: with nausea Qualified Code(s): K92.0 - Hematemesis (5) Schizoaffective disorder Current Visit: No Status: Chronic Assessment and plan: Taking: Fluphenazine 2.5 mg PO BID Zyprexa 30 mg HS Qualifiers: Schizoaffective disorder type: bipolar Qualified Code(s): F25.0 - Schizoaffective disorder, bipolar type (6) DVT prophylaxis Current Visit: Yes Status: Acute Assessment and plan: Heparin 5,000 Sq - Subjective Interval history: Patient notes to me his cough and sputum production is resolved. In past 2 days. - Constitutional Vitals: Temp Pulse Resp BP Pulse Ox 97.7 F 79 16 118/82 98 12/21/17 06:39 12/21/17 06:39 12/21/17 06:39 12/21/17 06:39 12/21/17 06:39 General appearance: Present: A&O X 3 - Head Head exam: Present: atraumatic, normocephalic - Eye Eye exam: Present: PERRL, conjuntiva pink, sclera anicteric Pupils: Present: PERRL - Neck Neck exam general surgery: Present: supple, trachea midline. Absent: lymphadenopathy - Respiratory Respiratory exam: Present: CTAB. Absent: accessory muscle use, rales, rhonchi, wheezes - Cardiovascular Cardiovascular exam: Present: RRR, +S1, +S2. Absent: diastolic murmur, gallop, rubs, systolic murmur - GI/Abdominal GI/Abdominal exam: Present: normal bowel sounds, soft, no peritoneal signs. Absent: distended, tenderness - Extremities Exam Extremities exam: Present: warm, radial pulses palpable and symmetrical. Absent : calf tenderness, cyanotic, pedal edema - Neurological Exam Neurological exam: Present: CN II-XII intact, oriented X3, no focal deficits. Absent: pronater drift, facial droop, speech deficit - Skin Skin exam: Present: dry, intact Internal Medicine: Result - Labs CBC & Chem 7: 12/21/17 05:05 12/21/17 05:05 Labs: Short CBC 12/21/17 Range/Units 05:05 WBC 7.6 (4.3-11.1) K/mcL Hgb 12.2 L (12.9-16.9) g/dL Hct 36.2 L (37.5-50.1) % Plt Count 96 L (140-400) K/mcL Neutrophils # 2.8 (1.6-8.9) K/mcL BMP 12/21/17 05:05 Sodium 136 Potassium 3.9 Chloride 104 Carbon Dioxide 27 BUN 10 Creatinine 1.42 H Glucose 96 Calcium 8.7 - ABG Interpretation ABG results: ABG ABG pH 7.34 pH Units (7.32-7.45) 12/14/17 12:17 ABG pCO2 37 mmHg (35-45) 12/14/17 12:17 ABG pO2 174 mmHg (85-104) H 12/14/17 12:17 ABG O2 Saturation 100 % (95-98) H 12/14/17 12:17 - VTE Documentation of Mechanical Device: Intermittent pneumatic compression device Consult Discharge Plan - Plan Referrals: NONE,PCP [Primary Care Provider] - Prescriptions: cefTRIAXone [Rocephin] 2,000 mg IVPB Q24H 10 Days #10 vial
[2017-12-21] MEDS: cefTRIAXone 2,000 MG in Water for inj. (sterile) 20 ML 20 ML IVP SCH (09:59)
[2017-12-21] MEDS: traZODone 50 MG TABLET PO PRN (20:48)
[2017-12-21] MEDS: cloNIDine HCl 0.1 MG TABLET PO SCH (20:48)
[2017-12-21] MEDS: OLANZapine 10 MG TAB.RAPDIS PO SCH (20:52)
[2017-12-22] MEDS: *HR* Heparin 5,000 UNIT/ML VIAL SQ SCH (05:39)
[2017-12-22 06:46] VITALS: BP 114/73
[2017-12-22 09:44] LABS: Hepatitis B Core IgM Grayzone (Nonreactive); Hepatitis C Virus Antibody Reactive (Nonreactive)
[2017-12-22] MEDS: *HR* LORazepam 1 MG TABLET PO PRN (09:53)
[2017-12-22] MEDS: cefTRIAXone 2,000 MG in Water for inj. (sterile) 20 ML 20 ML IVP SCH (09:54)
--- NOTE | 2017-12-22 14:32 | Physician Discharge Referral ---
ExtendedCare Referral Info Provider in Charge after Transfer: PCP Institutional Level of Care: Skilled Prognosis: Fair Aware of Diagnosis: Patient Aware of Prognosis: Patient - Transfer Medications Prescriptions: cefTRIAXone [Rocephin] 2,000 mg IVPB Q24H 10 Days #10 vial Home Medications: LORazepam [Ativan] 1 mg PO TID 10/29/15 [History] OLANZapine [Zyprexa] 30 mg PO HS 10/29/15 [History] Trihexyphenidyl [Artane] 2 mg PO BID 10/29/15 [History] Fluphenazine [Prolixin] 2.5 mg PO BID #8 tablet 05/03/17 [Rx] cloNIDine HCl [CloNIDine HCl] 0.1 mg PO HS 12/14/17 [History] traZODone [TraZODone] 400 mg PO HS 12/14/17 [History] cefTRIAXone [Rocephin] 2,000 mg IVPB Q24H 10 Days #10 vial 12/17/17 [Rx] Omeprazole [PriLOSEC] 20 mg PO Q12HR capsule. 12/20/17 [Rx] Allergies/Adverse Reactions: 3 Allergy/AdvReac Type Severity Reaction Status Date / Time No Known Allergies Allergy Verified 10/29/15 17:34 - Respiratory Orders Smoking Cessation: Smoking cessation has been advised. For more information, call the [place] Tobacco Quit Line at 3-107-XCEHNOW. CERTIFICATION: I certify that the transfer of the above named patient to an Extended Care Facility is necessary for the continuing treatment of the diagnosis listed. The above information is true and accurate reflection of patient's current condition. Confidential - Redisclosure prohibited without a patient's written consent.
--- NOTE | 2017-12-22 14:33 | Internal Med Progress Note ---
Date of Encounter: 12/22/17 Time of Encounter: 14:32 - Subjective Interval history: (1) Acute metabolic encephalopathy Current Visit: Yes Status: Acute Assessment and plan: Patient had altered mental status on presentation to ED. Likely polypharmacy. Sister says he takes meds incorrectly, sometimes taking too much. He lives with mother at home who is unable to care for him and help with medication administration. Initially thought to be aseptic meningitis but less likely after thorough evaluation by Neurology during this admission. Acyclovir, ampicillin, vancomycin have been discontinued. HSV PCR negative. Possibly he has acute infection as well. Suspect LRTI as he was cough with sputum prior to admission per sister. Symptoms resolved with Rocephin Symptoms are resolved, he is at baseline (2) Sepsis On admission, Fever of 102.3, with tachycarda 136 bpm, RR 20 breaths per minute. Possible but less likely viral meningitis after CSF results. Has been treated with Acyclovir, Vanc, ampicillin, Rocephin. CSF suggestive of viral meningitis, elevated CSF protein, normal glucose, elevated nucleated cells could be from other acute illness. Echocardiogram no vegitations Blood cultures 12/14 contaminate with Staph epidermidis (1 of 2 sample) Blood cultures 12/15: no growth to date No longer septic Continue IV Rocephin 2g IVP for one more day for 10 day course (3) Acute on chronic kidney failure Has acute elevation in Cr and acute decrease in the patients GFR Resolved with IV hydration (4) Hematemesis Current Visit: Yes Status: Acute Assessment and plan: Patient had an episode of hematemesis on admission. Family member states that the vomit appeared to be a dark red color and the clothing of the patient had a red tinge stains Hemoglobin is currently stable GI consulted, workup planned to be done as outpatient. - Constitutional Vitals: Temp Pulse Resp BP Pulse Ox 98 F 71 18 114/73 98 12/22/17 05:00 12/22/17 05:00 12/22/17 05:00 12/22/17 06:45 12/22/17 05:00 General appearance: Present: A&O X 3, no acute distress - Head Head exam: Present: atraumatic, normocephalic - Eye Eye exam: Present: PERRL, conjuntiva pink, sclera anicteric Pupils: Present: PERRL - Neck Neck exam general surgery: Present: supple, trachea midline. Absent: lymphadenopathy, nuchal rigidity, thyromegaly - Respiratory Respiratory exam: Present: CTAB. Absent: accessory muscle use, rales, rhonchi, wheezes - Cardiovascular Cardiovascular exam: Present: RRR, +S1, +S2. Absent: diastolic murmur, gallop, rubs, systolic murmur - GI/Abdominal GI/Abdominal exam: Present: normal bowel sounds, soft, no peritoneal signs. Absent: distended, tenderness - Extremities Exam Extremities exam: Present: warm, radial pulses palpable and symmetrical. Absent : calf tenderness, cyanotic, pedal edema - Neurological Exam Neurological exam: Present: CN II-XII intact, oriented X3, no focal deficits. Absent: pronater drift, facial droop, speech deficit - Skin Skin exam: Present: dry, intact Internal Medicine: Result - Labs CBC & Chem 7: 12/21/17 05:05 12/21/17 05:05 - ABG Interpretation ABG results: ABG ABG pH 7.34 pH Units (7.32-7.45) 12/14/17 12:17 ABG pCO2 37 mmHg (35-45) 12/14/17 12:17 ABG pO2 174 mmHg (85-104) H 12/14/17 12:17 ABG O2 Saturation 100 % (95-98) H 12/14/17 12:17 - VTE Documentation of Mechanical Device: Intermittent pneumatic compression device Consult Discharge Plan - Plan Referrals: NONE,PCP [Primary Care Provider] - Prescriptions: cefTRIAXone [Rocephin] 2,000 mg IVPB Q24H 10 Days #10 vial
== END 2017-12-22 16:30 | DRG 871 ==
LOC: EMEROO 10:44 → SUATTDRO 15:42 → 2NENU 15:42
PROVIDERS: ADMIT Internal Medicine; ATTEND Student in an Organized Health Care Education/Training Program

== ENCOUNTER 2018-05-17 15:37 | Inpatient (IN) ==
[~2018-05-17 15:37] MED LIST: *HR* Etomidate 20 MG/10 ML AMPUL IVP ONE; *HR* Midazolam HCl 2 MG/2 ML VIAL IV ONE; *HR* Midazolam HCl 5 MG/5 ML VIAL IVP ONE
[2018-05-17] MEDS ORDERED: 0.9 % Sodium Chloride 1,000 ML IVC ONE ×4 (15:48→22:31)
[2018-05-17 16:08] LABS: Immature Granulocytes % 0.5 % (0-4); Mean Platelet Volume 11.1 fL (9.4-12.4)
[2018-05-17 16:09] LABS: Basophils % 0.3 %; Eosinophils % 0.2 %; Hematocrit 31.4 % (37.5-50.1); Hemoglobin 10.9 g/dL (12.9-16.9); Immature Platelets 4.9 % (1.1-6.1); Lymphocytes # 1.9 K/mcL (0.6-4.6); Lymphocytes % 17.2 %; Mean Corpuscular HGB Conc 34.7 g/dL (31.6-35.5); Mean Corpuscular Hemoglobin 31.1 pg (28.0-33.3); Mean Corpuscular Volume 89.7 fL (83.0-100.0); Monocytes % 9.3 %; Red Cell Distribution Width 14.9 % (11.5-14.5); Segmented Neutrophils % 72.5 %
[2018-05-17 16:10] LABS: Neutrophils # 8.1 K/mcL (1.6-8.9)
[2018-05-17 16:11] LABS: Platelet Count 95 K/mcL (140-400)
[2018-05-17 16:15] LABS: INR 1.3; Prothrombin Time 14.3 Seconds (9.4-12.1)
[2018-05-17 16:17] LABS: Activated Partial Thrombo Time 31.3 Seconds (26.0-36.0)
[2018-05-17 16:29] LABS: Troponin I < 0.03 ng/mL (< 0.04)
[2018-05-17 16:30] LABS: Alanine Aminotransferase 47 Units/L (7-52); Albumin 3.4 g/dL (3.5-5.7); Albumin/Globulin Ratio 1.1 (1.1-2.2); Alkaline Phosphatase 95 Units/L (34-104); Aspartate Amino Transferase 51 Units/L (13-39); BUN/Creatinine Ratio 8 (6-26); Blood Urea Nitrogen 16 mg/dL (8-23); Calcium 8.8 mg/dL (8.6-10.3); Carbon Dioxide 17 mEq/L (23-29); Chloride 108 mEq/L (98-107); Creatine Kinase 588 Units/L (30-223); Globulin 3.1 g/dL (2.4-3.5); Glucose 150 mg/dL (70-105); Osmolality,Calculated 284 (280-300); Potassium 4.2 mEq/L (3.5-5.1); Sodium 135 mEq/L (136-145); Total Protein 6.5 g/dL (6.4-8.9); eGFR For Non-African Americans 32 (> 60)
[2018-05-17] MEDS ORDERED: Levofloxacin 750 MG/150 ML 750 MG/150 ML BAG IVPB ONE (16:43)
[2018-05-17] MEDS ORDERED: Piperacillin/Tazobactam 3.375 GM in 0.9 % Sodium Chloride Mini Bag 100 ML IVPB ONE (16:53)
--- NOTE | 2018-05-17 17:08 | Emergency Department Note ---
Disposition Clinical Impression: Sepsis, Rhabdomyolysis, Parapneumonic effusion Pneumonia Qualifiers: Pneumonia type: due to unspecified organism Laterality: left Lung location: lower lobe of lung Qualified Code(s): J18.1 - Lobar pneumonia, unspecified organism Disposition: Admitted As Inpatient Condition: Critical General Adult HPI - General Chief complaint: ED Fall Stated complaint: dizzy,falls Time Seen by Provider: 05/17/18 15:39 Source: patient, EMS Limitations: no limitations Nursing Notes Reviewed: Yes Vital Signs Reviewed: Yes - History of Present Illness Pain Scale: 0 - Related Data Home Medications Medication Instructions Recorded Confirmed LORazepam [Ativan] 1 mg PO TID 10/29/15 12/14/17 OLANZapine [Zyprexa] 30 mg PO HS 10/29/15 12/14/17 Trihexyphenidyl [Artane] 2 mg PO BID 10/29/15 12/14/17 cloNIDine HCl [CloNIDine HCl] 0.1 mg PO HS 12/14/17 12/14/17 traZODone [TraZODone] 400 mg PO HS 12/14/17 12/14/17 Previous Rx's Medication Instructions Recorded Fluphenazine [Prolixin] 2.5 mg PO BID #8 tablet 05/03/17 cefTRIAXone [Rocephin] 2,000 mg IVPB Q24H 10 Days #10 vial 12/17/17 Omeprazole [PriLOSEC] 20 mg PO Q12HR capsule. 12/20/17 Allergies Allergy/AdvReac Type Severity Reaction Status Date / Time No Known Allergies Allergy Verified 10/29/15 17:34 Past Medical History - Past Medical History Medical history: Reports: hypertension Surgical history: Reports: no surgical history Psychiatric history: Reports: anxiety, bipolar, depression - Social History Smoking Status: Heavy tobacco smoker Smokeless Tobacco Status: No Alcohol use: Reports: none Drug use: Reports: none Physical Exam - General Limitations: no limitations General appearance: alert, in no apparent distress Course Vital Signs Temperature 97.3 F L 05/17/18 15:40 Pulse Rate 110 05/17/18 15:40 Respiratory Rate 35 05/17/18 15:40 Blood Pressure 81/66 05/17/18 15:40 O2 Sat by Pulse Oximetry 97 05/17/18 15:40 Temperature 97.3 F L 05/17/18 15:40 Pulse Rate 110 05/17/18 15:40 Respiratory Rate 35 05/17/18 15:40 Blood Pressure 81/66 05/17/18 15:40 O2 Sat by Pulse Oximetry 97 05/17/18 15:40 Oxygen Delivery Oxygen Delivery Room Air Medical Decision Making - Lab Data Result diagrams: 05/17/18 15:57 05/17/18 15:57 Lab Results 05/17/18 05/17/18 05/17/18 Range/Units 15:57 15:57 15:57 WBC 11.1 (4.3-11.1) K/mcL RBC 3.50 L (4.19-5.50) M/mcL Hgb 10.9 L (12.9-16.9) g/dL Hct 31.4 L (37.5-50.1) % MCV 89.7 (83.0-100.0) fL MCH 31.1 (28.0-33.3) pg MCHC 34.7 (31.6-35.5) g/dL RDW 14.9 H (11.5-14.5) % Plt Count 95 L (140-400) K/mcL MPV 11.1 (9.4-12.4) fL Immature Gran % 0.5 (0-4) % Seg Neutrophils % 72.5 % Lymphocytes % 17.2 % Monocytes % 9.3 % Eosinophils % 0.2 % Basophils % 0.3 % Neutrophils # 8.1 (1.6-8.9) K/mcL Lymphocytes # 1.9 (0.6-4.6) K/mcL Monocytes # 1.0 (0.0-1.3) K/mcL Eosinophils # 0.0 (0.0-0.6) K/mcL Basophils # 0.0 (0.0-0.2) K/mcL Immature Plt Fraction 4.9 (1.1-6.1) % PT 14.3 H (9.4-12.1) Seconds INR 1.3 APTT 31.3 (26.0-36.0) Seconds Sodium 135 L (136-145) mEq/L Potassium 4.2 (3.5-5.1) mEq/L Chloride 108 H (98-107) mEq/L Carbon Dioxide 17 L (23-29) mEq/L BUN 16 (8-23) mg/dL Creatinine 2.13 H (0.70-1.30) mg/dL Est GFR ( Amer) 38 L (> 60) Est GFR (Non-Af Amer) 32 L (> 60) BUN/Creatinine Ratio 8 (6-26) Glucose 150 H (70-105) mg/dL Calculated Osmolality 284 (280-300) Lactic Acid (0.5-2.2) mmol/L Calcium 8.8 (8.6-10.3) mg/dL Total Bilirubin 1.0 (0.3-1.0) mg/dL AST 51 H (13-39) Units/L ALT 47 (7-52) Units/L Alkaline Phosphatase 95 (34-104) Units/L Creatine Kinase 588 H (30-223) Units/L Troponin I < 0.03 (< 0.04) ng/mL Serum Total Protein 6.5 (6.4-8.9) g/dL Albumin 3.4 L (3.5-5.7) g/dL Globulin 3.1 (2.4-3.5) g/dL Albumin/Globulin Ratio 1.1 (1.1-2.2) Blood Type Antibody Screen 05/17/18 05/17/18 Range/Units 15:57 15:57 WBC (4.3-11.1) K/mcL RBC (4.19-5.50) M/mcL Hgb (12.9-16.9) g/dL Hct (37.5-50.1) % MCV (83.0-100.0) fL MCH (28.0-33.3) pg MCHC (31.6-35.5) g/dL RDW (11.5-14.5) % Plt Count (140-400) K/mcL MPV (9.4-12.4) fL Immature Gran % (0-4) % Seg Neutrophils % % Lymphocytes % % Monocytes % % Eosinophils % % Basophils % % Neutrophils # (1.6-8.9) K/mcL Lymphocytes # (0.6-4.6) K/mcL Monocytes # (0.0-1.3) K/mcL Eosinophils # (0.0-0.6) K/mcL Basophils # (0.0-0.2) K/mcL Immature Plt Fraction (1.1-6.1) % PT (9.4-12.1) Seconds INR APTT (26.0-36.0) Seconds Sodium (136-145) mEq/L Potassium (3.5-5.1) mEq/L Chloride (98-107) mEq/L Carbon Dioxide (23-29) mEq/L BUN (8-23) mg/dL Creatinine (0.70-1.30) mg/dL Est GFR ( Amer) (> 60) Est GFR (Non-Af Amer) (> 60) BUN/Creatinine Ratio (6-26) Glucose (70-105) mg/dL Calculated Osmolality (280-300) Lactic Acid 2.6 H (0.5-2.2) mmol/L Calcium (8.6-10.3) mg/dL Total Bilirubin (0.3-1.0) mg/dL AST (13-39) Units/L ALT (7-52) Units/L Alkaline Phosphatase (34-104) Units/L Creatine Kinase (30-223) Units/L Troponin I (< 0.04) ng/mL Serum Total Protein (6.4-8.9) g/dL Albumin (3.5-5.7) g/dL Globulin (2.4-3.5) g/dL Albumin/Globulin Ratio (1.1-2.2) Blood Type A POSITIVE Antibody Screen NEGATIVE Attestation Statement - Attestation Attestation: I, Elier Song, examined this patient and my medical decision-making was reviewed with the [employer]/PA/Advanced Practice Nurse/Resident Physician. I agree with the documented findings, disposition and treatment plan as described except to the extent set forth below. 62-year-old male presents emergency Department with concerns of multiple falls, weakness, fatigue. Patient is unable to give a good history regarding his falls. He only knows that he woke up on the ground. On our evaluation the patient is tachycardic and hypotensive. He appears pale and volume depleted. Chest x-ray showed likely pneumonia with parapneumonic effusion. Laboratory evaluation revealed multiple abnormalities with elevated CPK, elevated creatinine. Head CT did not show evidence of acute fracture or intracranial hemorrhage. Blood pressure improved with IV fluids in the emergency department. He was started on vancomycin, Zosyn, Levaquin for possible pneumonia with parapneumonic effusion. He will be admitted to the hospitalist for further care and evaluation.
[2018-05-17] MEDS ORDERED: 0.9 % Sodium Chloride 1,000 ML ONE ×2 (17:43→21:36)
--- NOTE | 2018-05-17 18:01 | Emergency Department Note ---
Disposition Clinical Impression: Severe sepsis Pneumonia Qualifiers: Pneumonia type: due to unspecified organism Laterality: left Lung location: lower lobe of lung Qualified Code(s): J18.1 - Lobar pneumonia, unspecified organism Disposition: Admitted As Inpatient Condition: Fair Forms: ED Satisfaction Letter Time of Disposition: 18:49 General Adult HPI - General Chief complaint: ED Fall Stated complaint: dizzy,falls Time Seen by Provider: 05/17/18 15:39 Source: patient, EMS Limitations: no limitations Nursing Notes Reviewed: Yes Vital Signs Reviewed: Yes - History of Present Illness HPI Narrative: Patient is a 62-year-old male who presents to [facility] ED with a chief complaint of cough and dizziness like he is lightheaded. He has also had 2 falls in the last several hours. Per EMS, he was found on the floor after rolling off his bed. Denies any head injury or loss of consciousness. Patient states he has had a cough for the last several weeks. Denies any nausea , vomiting, fever or chills. States he does get short of breath at times. Denies any abdominal pain, problems with urination or bowel movements. Patient lives at home with his mother. Onset (ago): week(s) Pain Scale: 0 Improves with: nothing Worsens with: nothing Associated symptoms: Reports: cough, shortness of breath. Denies: chest pain, fever/chills, nausea/vomiting Treatments Prior to Arrival: none - Related Data Home Medications Medication Instructions Recorded Confirmed OLANZapine [Zyprexa] 30 mg PO HS 10/29/15 12/14/17 Trihexyphenidyl [Artane] 2 mg PO BID 10/29/15 12/14/17 Trazodone HCl 300 mg PO HS 05/17/18 05/17/18 diazePAM [Valium] 10 mg PO TID PRN 05/17/18 05/17/18 hydrOXYzine pamoate [HydrOXYzine 25 mg PO BID 05/17/18 05/17/18 Pamoate] Previous Rx's Medication Instructions Recorded Fluphenazine [Prolixin] 2.5 mg PO BID #8 tablet 05/03/17 Allergies Allergy/AdvReac Type Severity Reaction Status Date / Time No Known Allergies Allergy Verified 05/17/18 18:27 All systems ED: reviewed and negative except as stated. Past Medical History - Past Medical History Attestation: Yes The following information was validated with the patient. Source: patient Medical history: Reports: hypertension Surgical history: Reports: no surgical history Psychiatric history: Reports: anxiety, bipolar, depression - Social History Smoking Status: Heavy tobacco smoker Smokeless Tobacco Status: No Alcohol use: Reports: none Drug use: Reports: none Physical Exam - General Limitations: no limitations General appearance: alert, in no apparent distress - Head Head exam: atraumatic, normocephalic, normal inspection - Eye Eye exam: Present: normal appearance, PERRL, EOMI - ENT ENT exam: normal exam, mucous membranes dry - Neck Neck exam: Present: normal inspection, full ROM, trachea midline - Chest Chest inspection: Present: normal inspection, symmetric chest wall rise - Respiratory Respiratory exam: Present: normal lung sounds bilaterally - Cardiovascular Cardiovascular exam: Present: normal rhythm, tachycardia - Abdominal Exam Abdominal exam: Present: soft, Non-Tender. Absent: tenderness, distention, guarding, rebound, rigidity - Extremities Exam Extremities exam: Present: normal inspection, full ROM. Absent: tenderness, pedal edema - Neurological Exam Neurological exam: Present: alert - Psychiatric Psychiatric exam: Present: normal affect, normal mood - Skin Skin exam: Present: warm, dry, intact, normal color Course Course Narrative: Patient seen and examined. Recent fall. No signs of external injury. Concern for possible sepsis since patient's blood pressure has a systolic in the 80s and is tachycardic. 2 L of IV fluids ordered. We will continue to reassess the blood pressures and assess for the need for pressors. Septic workup initiated. - Reevaluation(s) Reevaluation #1: After 2 L of IV fluids, patient's blood pressure has improved to 102/61. We will continue to watch this cautiously. Vancomycin and Zosyn started for antibiotic coverage. Patient's chest x-ray does show signs of the left lower lobe pneumonia along with pleural effusion. I discussed with the hospitalist who has accepted patient for admission. Another repeat blood pressure continues to have systolic blood pressure over 100. We will hold off on doing a central line at this time. Time: 18:48 Vital Signs Temperature 97.3 F L 05/17/18 15:40 Pulse Rate 110 05/17/18 15:40 Respiratory Rate 35 05/17/18 15:40 Blood Pressure 81/66 05/17/18 15:40 O2 Sat by Pulse Oximetry 97 07/30/18 15:40 Temperature 97.3 F L 05/17/18 15:40 Pulse Rate 99 05/17/18 17:14 Respiratory Rate 26 05/17/18 17:14 Blood Pressure 88/61 05/17/18 17:14 O2 Sat by Pulse Oximetry 98 05/17/18 17:14 Oxygen Delivery Oxygen Delivery Room Air Medical Decision Making - Medical Records Medical records reviewed: Yes I reviewed the patient's medical records. - Lab Data Lab results reviewed: Yes I reviewed the patient's lab results. Result diagrams: 05/17/18 15:57 05/17/18 15:57 Lab Results 05/17/18 05/17/18 05/17/18 Range/Units 15:57 15:57 15:57 WBC 11.1 (4.3-11.1) K/mcL RBC 3.50 L (4.19-5.50) M/mcL Hgb 10.9 L (12.9-16.9) g/dL Hct 31.4 L (37.5-50.1) % MCV 89.7 (83.0-100.0) fL MCH 31.1 (28.0-33.3) pg MCHC 34.7 (31.6-35.5) g/dL RDW 14.9 H (11.5-14.5) % Plt Count 95 L (140-400) K/mcL MPV 11.1 (9.4-12.4) fL Immature Gran % 0.5 (0-4) % Seg Neutrophils % 72.5 % Lymphocytes % 17.2 % Monocytes % 9.3 % Eosinophils % 0.2 % Basophils % 0.3 % Neutrophils # 8.1 (1.6-8.9) K/mcL Lymphocytes # 1.9 (0.6-4.6) K/mcL Monocytes # 1.0 (0.0-1.3) K/mcL Eosinophils # 0.0 (0.0-0.6) K/mcL Basophils # 0.0 (0.0-0.2) K/mcL Immature Plt Fraction 4.9 (1.1-6.1) % PT 14.3 H (9.4-12.1) Seconds INR 1.3 APTT 31.3 (26.0-36.0) Seconds Sodium 135 L (136-145) mEq/L Potassium 4.2 (3.5-5.1) mEq/L Chloride 108 H (98-107) mEq/L Carbon Dioxide 17 L (23-29) mEq/L BUN 16 (8-23) mg/dL Creatinine 2.13 H (0.70-1.30) mg/dL Est GFR ( Amer) 38 L (> 60) Est GFR (Non-Af Amer) 32 L (> 60) BUN/Creatinine Ratio 8 (6-26) Glucose 150 H (70-105) mg/dL Calculated Osmolality 284 (280-300) Lactic Acid (0.5-2.2) mmol/L Calcium 8.8 (8.6-10.3) mg/dL Total Bilirubin 1.0 (0.3-1.0) mg/dL AST 51 H (13-39) Units/L ALT 47 (7-52) Units/L Alkaline Phosphatase 95 (34-104) Units/L Creatine Kinase 588 H (30-223) Units/L Troponin I < 0.03 (< 0.04) ng/mL Serum Total Protein 6.5 (6.4-8.9) g/dL Albumin 3.4 L (3.5-5.7) g/dL Globulin 3.1 (2.4-3.5) g/dL Albumin/Globulin Ratio 1.1 (1.1-2.2) Blood Type Antibody Screen 05/17/18 05/17/18 Range/Units 15:57 15:57 WBC (4.3-11.1) K/mcL RBC (4.19-5.50) M/mcL Hgb (12.9-16.9) g/dL Hct (37.5-50.1) % MCV (83.0-100.0) fL MCH (28.0-33.3) pg MCHC (31.6-35.5) g/dL RDW (11.5-14.5) % Plt Count (140-400) K/mcL MPV (9.4-12.4) fL Immature Gran % (0-4) % Seg Neutrophils % % Lymphocytes % % Monocytes % % Eosinophils % % Basophils % % Neutrophils # (1.6-8.9) K/mcL Lymphocytes # (0.6-4.6) K/mcL Monocytes # (0.0-1.3) K/mcL Eosinophils # (0.0-0.6) K/mcL Basophils # (0.0-0.2) K/mcL Immature Plt Fraction (1.1-6.1) % PT (9.4-12.1) Seconds INR APTT (26.0-36.0) Seconds Sodium (136-145) mEq/L Potassium (3.5-5.1) mEq/L Chloride (98-107) mEq/L Carbon Dioxide (23-29) mEq/L BUN (8-23) mg/dL Creatinine (0.70-1.30) mg/dL Est GFR ( Amer) (> 60) Est GFR (Non-Af Amer) (> 60) BUN/Creatinine Ratio (6-26) Glucose (70-105) mg/dL Calculated Osmolality (280-300) Lactic Acid 2.6 H (0.5-2.2) mmol/L Calcium (8.6-10.3) mg/dL Total Bilirubin (0.3-1.0) mg/dL AST (13-39) Units/L ALT (7-52) Units/L Alkaline Phosphatase (34-104) Units/L Creatine Kinase (30-223) Units/L Troponin I (< 0.04) ng/mL Serum Total Protein (6.4-8.9) g/dL Albumin (3.5-5.7) g/dL Globulin (2.4-3.5) g/dL Albumin/Globulin Ratio (1.1-2.2) Blood Type A POSITIVE Antibody Screen NEGATIVE - Radiology Data Radiology results reviewed: Yes I reviewed the patient's radiology results. Chest X-Ray 05/17/18 15:48 IMPRESSION: Left lower lobe pneumonia with probable associated pleural effusion. Follow-up to resolution is recommended. D/ / Ana Turner MD / Ana Turner MD Interpreting Provider: Ana Turner MD Head CT 05/17/18 15:49 IMPRESSION: No acute intracranial abnormality. D/ / Seamus Christie / Seamus Christie Interpreting Provider: Seamus Christie
[2018-05-17 18:39] LABS: Bilirubin,Urine Negative (Negative); Blood,Urine Negative (Negative); Clarity,Urine Cloudy (Clear); Color,Urine Yellow (Yellow); Glucose,Urine (UA) Normal (Normal); Ketones,Urine Negative (Negative); Leukocyte Esterase,Urine Negative (Negative); Nitrite,Urine Negative (Negative); PH,Urine 5.5 pH Units (5.0-8.0); Protein,Urine Negative (Neg-Trace); Specific Gravity,Urine 1.016 (1.010-1.025); Urobilinogen,Urine Normal (Normal)
[2018-05-17 18:41] LABS: Bacteria,Urine None Seen per hpf (None-Few); Hyaline Casts,Urine Few per lpf (None-Few); RBC,Urine 0-3 per hpf (0-3); Squamous Epithelial Cell,Urine Many per lpf (None-Few)
--- NOTE | 2018-05-17 20:16 | Emergency Department Note ---
Disposition Clinical Impression: Sepsis, Severe sepsis, Parapneumonic effusion Rhabdomyolysis Qualifiers: Qualified Code(s): T79.6XXA - Pneumonia Qualifiers: Pneumonia type: due to unspecified organism Laterality: left Lung location: lower lobe of lung Qualified Code(s): J18.1 - Lobar pneumonia, unspecified organism Disposition: Admitted As Inpatient Condition: Critical General Adult HPI - General Chief complaint: ED Fall Stated complaint: dizzy,falls Time Seen by Provider: 05/17/18 15:39 Source: patient, EMS Limitations: no limitations - History of Present Illness Pain Scale: 0 Improves with: nothing Worsens with: nothing Associated symptoms: Reports: cough, shortness of breath. Denies: chest pain, fever/chills, nausea/vomiting Treatments Prior to Arrival: none - Related Data Home Medications Medication Instructions Recorded Confirmed OLANZapine [Zyprexa] 30 mg PO HS 10/29/15 05/17/18 Trihexyphenidyl [Artane] 2 mg PO BID 10/29/15 05/17/18 Trazodone HCl 300 mg PO HS 05/17/18 05/17/18 diazePAM [Valium] 10 mg PO TID PRN 05/17/18 05/17/18 hydrOXYzine pamoate [HydrOXYzine 25 mg PO BID 05/17/18 05/17/18 Pamoate] Previous Rx's Medication Instructions Recorded Fluphenazine [Prolixin] 2.5 mg PO BID #8 tablet 05/03/17 Allergies Allergy/AdvReac Type Severity Reaction Status Date / Time No Known Allergies Allergy Verified 05/17/18 18:27 Past Medical History - Past Medical History Medical history: Reports: hypertension Surgical history: Reports: no surgical history Psychiatric history: Reports: anxiety, bipolar, depression - Social History Smoking Status: Heavy tobacco smoker Smokeless Tobacco Status: No Alcohol use: Reports: none Drug use: Reports: none Physical Exam - General Limitations: no limitations General appearance: alert, in no apparent distress Course Vital Signs Temperature 97.3 F L 05/17/18 15:40 Pulse Rate 110 05/17/18 15:40 Respiratory Rate 35 05/17/18 15:40 Blood Pressure 81/66 05/17/18 15:40 O2 Sat by Pulse Oximetry 97 05/17/18 15:40 Temperature 97.5 F L 05/17/18 21:11 Pulse Rate 133 05/17/18 21:11 Respiratory Rate 17 05/17/18 21:49 Blood Pressure 61/45 05/17/18 21:49 O2 Sat by Pulse Oximetry 100 05/17/18 21:49 Oxygen Delivery Oxygen Delivery Nasal Cannula Medical Decision Making - Lab Data Result diagrams: 05/17/18 15:57 05/17/18 15:57 Lab Results 05/17/18 05/17/18 05/17/18 Range/Units 15:57 15:57 15:57 WBC 11.1 (4.3-11.1) K/mcL RBC 3.50 L (4.19-5.50) M/mcL Hgb 10.9 L (12.9-16.9) g/dL Hct 31.4 L (37.5-50.1) % MCV 89.7 (83.0-100.0) fL MCH 31.1 (28.0-33.3) pg MCHC 34.7 (31.6-35.5) g/dL RDW 14.9 H (11.5-14.5) % Plt Count 95 L (140-400) K/mcL MPV 11.1 (9.4-12.4) fL Immature Gran % 0.5 (0-4) % Seg Neutrophils % 72.5 % Lymphocytes % 17.2 % Monocytes % 9.3 % Eosinophils % 0.2 % Basophils % 0.3 % Neutrophils # 8.1 (1.6-8.9) K/mcL Lymphocytes # 1.9 (0.6-4.6) K/mcL Monocytes # 1.0 (0.0-1.3) K/mcL Eosinophils # 0.0 (0.0-0.6) K/mcL Basophils # 0.0 (0.0-0.2) K/mcL Immature Plt Fraction 4.9 (1.1-6.1) % PT 14.3 H (9.4-12.1) Seconds INR 1.3 APTT 31.3 (26.0-36.0) Seconds Sodium 135 L (136-145) mEq/L Potassium 4.2 (3.5-5.1) mEq/L Chloride 108 H (98-107) mEq/L Carbon Dioxide 17 L (23-29) mEq/L BUN 16 (8-23) mg/dL Creatinine 2.13 H (0.70-1.30) mg/dL Est GFR ( Amer) 38 L (> 60) Est GFR (Non-Af Amer) 32 L (> 60) BUN/Creatinine Ratio 8 (6-26) Glucose 150 H (70-105) mg/dL Calculated Osmolality 284 (280-300) Lactic Acid (0.5-2.2) mmol/L Calcium 8.8 (8.6-10.3) mg/dL Total Bilirubin 1.0 (0.3-1.0) mg/dL AST 51 H (13-39) Units/L ALT 47 (7-52) Units/L Alkaline Phosphatase 95 (34-104) Units/L Creatine Kinase 588 H (30-223) Units/L Troponin I < 0.03 (< 0.04) ng/mL Serum Total Protein 6.5 (6.4-8.9) g/dL Albumin 3.4 L (3.5-5.7) g/dL Globulin 3.1 (2.4-3.5) g/dL Albumin/Globulin Ratio 1.1 (1.1-2.2) Blood Type Antibody Screen 05/17/18 05/17/18 Range/Units 15:57 15:57 WBC (4.3-11.1) K/mcL RBC (4.19-5.50) M/mcL Hgb (12.9-16.9) g/dL Hct (37.5-50.1) % MCV (83.0-100.0) fL MCH (28.0-33.3) pg MCHC (31.6-35.5) g/dL RDW (11.5-14.5) % Plt Count (140-400) K/mcL MPV (9.4-12.4) fL Immature Gran % (0-4) % Seg Neutrophils % % Lymphocytes % % Monocytes % % Eosinophils % % Basophils % % Neutrophils # (1.6-8.9) K/mcL Lymphocytes # (0.6-4.6) K/mcL Monocytes # (0.0-1.3) K/mcL Eosinophils # (0.0-0.6) K/mcL Basophils # (0.0-0.2) K/mcL Immature Plt Fraction (1.1-6.1) % PT (9.4-12.1) Seconds INR APTT (26.0-36.0) Seconds Sodium (136-145) mEq/L Potassium (3.5-5.1) mEq/L Chloride (98-107) mEq/L Carbon Dioxide (23-29) mEq/L BUN (8-23) mg/dL Creatinine (0.70-1.30) mg/dL Est GFR ( Amer) (> 60) Est GFR (Non-Af Amer) (> 60) BUN/Creatinine Ratio (6-26) Glucose (70-105) mg/dL Calculated Osmolality (280-300) Lactic Acid 2.6 H (0.5-2.2) mmol/L Calcium (8.6-10.3) mg/dL Total Bilirubin (0.3-1.0) mg/dL AST (13-39) Units/L ALT (7-52) Units/L Alkaline Phosphatase (34-104) Units/L Creatine Kinase (30-223) Units/L Troponin I (< 0.04) ng/mL Serum Total Protein (6.4-8.9) g/dL Albumin (3.5-5.7) g/dL Globulin (2.4-3.5) g/dL Albumin/Globulin Ratio (1.1-2.2) Blood Type A POSITIVE Antibody Screen NEGATIVE Attestation Statement - Attestation Attestation: I examined this patient and my medical decision-making was reviewed with the Resident Physician. I agree with the documented findings, disposition and treatment plan as described except to the extent set forth below. At shift change this patient has already been admitted by the medical service but has had some borderline hypotension. Decision was made to place a central line prior to patient going to the floor. A right IJ central line was placed by Dr. Chavez under my direct supervision without complication. A repeat chest x-ray was obtained and showed good placement of the right IJ central line with no pneumothorax. There was noted to be increase in the left pleural effusion and opacification from the initial study earlier this evening.
--- NOTE | 2018-05-17 20:23 | Emergency Department Note ---
Disposition Clinical Impression: Sepsis, Severe sepsis, Parapneumonic effusion Rhabdomyolysis Qualifiers: Qualified Code(s): T79.6XXA - Pneumonia Qualifiers: Pneumonia type: due to unspecified organism Laterality: left Lung location: lower lobe of lung Qualified Code(s): J18.1 - Lobar pneumonia, unspecified organism Disposition: Admitted As Inpatient Condition: Critical General Adult HPI - General Chief complaint: ED Fall Stated complaint: dizzy,falls Time Seen by Provider: 05/17/18 15:39 Source: patient, EMS Limitations: no limitations - History of Present Illness HPI Narrative: This documentation only consists of a procedure note for central line placement. Pain Scale: 0 Improves with: nothing Worsens with: nothing Associated symptoms: Reports: cough, shortness of breath. Denies: chest pain, fever/chills, nausea/vomiting Treatments Prior to Arrival: none - Related Data Home Medications Medication Instructions Recorded Confirmed OLANZapine [Zyprexa] 30 mg PO HS 10/29/15 05/17/18 Trihexyphenidyl [Artane] 2 mg PO BID 10/29/15 05/17/18 Trazodone HCl 300 mg PO HS 05/17/18 05/17/18 diazePAM [Valium] 10 mg PO TID PRN 05/17/18 05/17/18 hydrOXYzine pamoate [HydrOXYzine 25 mg PO BID 05/17/18 05/17/18 Pamoate] Previous Rx's Medication Instructions Recorded Fluphenazine [Prolixin] 2.5 mg PO BID #8 tablet 05/03/17 Allergies Allergy/AdvReac Type Severity Reaction Status Date / Time No Known Allergies Allergy Verified 05/17/18 18:27 Past Medical History - Past Medical History Medical history: Reports: hypertension Surgical history: Reports: no surgical history Psychiatric history: Reports: anxiety, bipolar, depression - Social History Smoking Status: Heavy tobacco smoker Smokeless Tobacco Status: No Alcohol use: Reports: none Drug use: Reports: none Physical Exam - General Limitations: no limitations General appearance: alert, in no apparent distress Course Vital Signs Temperature 97.3 F L 05/17/18 15:40 Pulse Rate 110 05/17/18 15:40 Respiratory Rate 35 05/17/18 15:40 Blood Pressure 81/66 05/17/18 15:40 O2 Sat by Pulse Oximetry 97 05/17/18 15:40 Temperature 96.1 F L 07/31/18 04:00 Pulse Rate 80 05/18/18 04:00 Respiratory Rate 16 05/18/18 04:00 Blood Pressure 116/76 05/18/18 04:00 O2 Sat by Pulse Oximetry 100 05/18/18 04:00 Oxygen Delivery Oxygen Delivery Nasal Cannula Procedures - Central Line Placement Right IJ Central Line Inserted*: Yes Central Line Catheter Replacement*: Yes Central Line Insertion: emergent Consent Obtained: verbal consent, written consent Procedural Pause: verify patient name and date of , timeout performed per policy, gwendolyn and assess the site, assemble equipment and verify supplies, perform hand hygiene Patient Placed on Monitor/Pulse Ox: Yes During the Procedure: clinician is wearing sterile gloves, cap, mask,& gown during insertion, sterile field and sterile technique are maintained, patient's face is covered with drape or mask and wearing a cap, everyone in room is wearing a mask Central Line Prep: Povidone-Iodine 1% Prep the Procedure Site: apply chloraprep to the skin using a back and forth scrubbing motion, apply chloraprep for 30 seconds (upper body), 1-2 min ( femoral sites) Local Anesthetic: lidocaine 1%, with epi Amount of anesthesia used (mL): 5 Ultrasound Used for Placement: Yes Central Line Lumen Inserted: triple Post Procedure: sutured in place, good blood return, all ports aspirated, flushed, capped, sterile dressing applied Post Procedure X-Ray: tip of catheter in good position Patient Tolerated Procedure: well, no complications Complications: none Medical Decision Making - Lab Data Result diagrams: 05/17/18 15:57 05/17/18 15:57 Lab Results 05/17/18 05/17/18 05/17/18 Range/Units 15:57 15:57 15:57 WBC 11.1 (4.3-11.1) K/mcL RBC 3.50 L (4.19-5.50) M/mcL Hgb 10.9 L (12.9-16.9) g/dL Hct 31.4 L (37.5-50.1) % MCV 89.7 (83.0-100.0) fL MCH 31.1 (28.0-33.3) pg MCHC 34.7 (31.6-35.5) g/dL RDW 14.9 H (11.5-14.5) % Plt Count 95 L (140-400) K/mcL MPV 11.1 (9.4-12.4) fL Immature Gran % 0.5 (0-4) % Seg Neutrophils % 72.5 % Lymphocytes % 17.2 % Monocytes % 9.3 % Eosinophils % 0.2 % Basophils % 0.3 % Neutrophils # 8.1 (1.6-8.9) K/mcL Lymphocytes # 1.9 (0.6-4.6) K/mcL Monocytes # 1.0 (0.0-1.3) K/mcL Eosinophils # 0.0 (0.0-0.6) K/mcL Basophils # 0.0 (0.0-0.2) K/mcL Immature Plt Fraction 4.9 (1.1-6.1) % PT 14.3 H (9.4-12.1) Seconds INR 1.3 APTT 31.3 (26.0-36.0) Seconds Sample Site ABG pH (7.32-7.45) pH Units ABG pCO2 (35-45) mmHg ABG pO2 (85-104) mmHg ABG HCO3 (21-27) mEq/L ABG Total CO2 (20-26) mEq/L ABG O2 Saturation (95-98) % ABG Base Excess (-2 to 3) mEq/L Franklin Test O2 Delivery Device Inspired O2 (1-15=lpm [id number]=%) Sodium 135 L (136-145) mEq/L Potassium 4.2 (3.5-5.1) mEq/L Chloride 108 H (98-107) mEq/L Carbon Dioxide 17 L (23-29) mEq/L BUN 16 (8-23) mg/dL Creatinine 2.13 H (0.70-1.30) mg/dL Est GFR ( Amer) 38 L (> 60) Est GFR (Non-Af Amer) 32 L (> 60) BUN/Creatinine Ratio 8 (6-26) Glucose 150 H (70-105) mg/dL Calculated Osmolality 284 (280-300) Lactic Acid (0.5-2.2) mmol/L Calcium 8.8 (8.6-10.3) mg/dL Total Bilirubin 1.0 (0.3-1.0) mg/dL AST 51 H (13-39) Units/L ALT 47 (7-52) Units/L Alkaline Phosphatase 95 (34-104) Units/L Creatine Kinase 588 H (30-223) Units/L Troponin I < 0.03 (< 0.04) ng/mL Serum Total Protein 6.5 (6.4-8.9) g/dL Albumin 3.4 L (3.5-5.7) g/dL Globulin 3.1 (2.4-3.5) g/dL Albumin/Globulin Ratio 1.1 (1.1-2.2) Urine Color (Yellow) Urine Clarity (Clear) Urine pH (5.0-8.0) pH Units Ur Specific [place] (1.010-1.025) Urine Protein (Neg-Trace) mg/dL Urine Glucose (UA) (Normal) mg/dL Urine Ketones (Negative) mg/dL Urine Blood (Negative) Urine Nitrite (Negative) Urine Bilirubin (Negative) Urine Urobilinogen (Normal) mg/dL Ur Leukocyte Esterase (Negative) Urine Microscopic RBC (0-3) per hpf Urine Microscopic WBC (0-3) per hpf Ur Squamous Epith Cells (None-Few) per lpf Urine Bacteria (None-Few) per hpf Hyaline Casts (None-Few) per lpf Salicylates (15.0-30.0) mg/dL Urine Opiates Screen (Jxwpgg=970) ng/mL Acetaminophen (10-20) mcg/mL Ur Barbiturates Screen (Narcpc=545) ng/mL Ur Phencyclidine Scrn (Cutoff=25) ng/mL Ur Amphetamines Screen (Aqmjgx=8927) ng/mL U Benzodiazepines Scrn (Blhppf=836) ng/mL Urine Cocaine Screen (Cutoff= 300) ng/mL U Marijuana (THC) Screen (Cutoff = 50) ng/mL Ur Drug Screen Interp Blood Type Antibody Screen 05/17/18 05/17/18 05/17/18 Range/Units 15:57 15:57 18:15 WBC (4.3-11.1) K/mcL RBC (4.19-5.50) M/mcL Hgb (12.9-16.9) g/dL Hct (37.5-50.1) % MCV (83.0-100.0) fL MCH (28.0-33.3) pg MCHC (31.6-35.5) g/dL RDW (11.5-14.5) % Plt Count (140-400) K/mcL MPV (9.4-12.4) fL Immature Gran % (0-4) % Seg Neutrophils % % Lymphocytes % % Monocytes % % Eosinophils % % Basophils % % Neutrophils # (1.6-8.9) K/mcL Lymphocytes # (0.6-4.6) K/mcL Monocytes # (0.0-1.3) K/mcL Eosinophils # (0.0-0.6) K/mcL Basophils # (0.0-0.2) K/mcL Immature Plt Fraction (1.1-6.1) % PT (9.4-12.1) Seconds INR APTT (26.0-36.0) Seconds Sample Site ABG pH (7.32-7.45) pH Units ABG pCO2 (35-45) mmHg ABG pO2 (85-104) mmHg ABG HCO3 (21-27) mEq/L ABG Total CO2 (20-26) mEq/L ABG O2 Saturation (95-98) % ABG Base Excess (-2 to 3) mEq/L Franklin Test O2 Delivery Device Inspired O2 (1-15=lpm [id number]=%) Sodium (136-145) mEq/L Potassium (3.5-5.1) mEq/L Chloride (98-107) mEq/L Carbon Dioxide (23-29) mEq/L BUN (8-23) mg/dL Creatinine (0.70-1.30) mg/dL Est GFR ( Amer) (> 60) Est GFR (Non-Af Amer) (> 60) BUN/Creatinine Ratio (6-26) Glucose (70-105) mg/dL Calculated Osmolality (280-300) Lactic Acid 2.6 H (0.5-2.2) mmol/L Calcium (8.6-10.3) mg/dL Total Bilirubin (0.3-1.0) mg/dL AST (13-39) Units/L ALT (7-52) Units/L Alkaline Phosphatase (34-104) Units/L Creatine Kinase (30-223) Units/L Troponin I (< 0.04) ng/mL Serum Total Protein (6.4-8.9) g/dL Albumin (3.5-5.7) g/dL Globulin (2.4-3.5) g/dL Albumin/Globulin Ratio (1.1-2.2) Urine Color Yellow (Yellow) Urine Clarity Cloudy A (Clear) Urine pH 5.5 (5.0-8.0) pH Units Ur Specific [place] 1.016 (1.010-1.025) Urine Protein Negative (Neg-Trace) mg/dL Urine Glucose (UA) Normal (Normal) mg/dL Urine Ketones Negative (Negative) mg/dL Urine Blood Negative (Negative) Urine Nitrite Negative (Negative) Urine Bilirubin Negative (Negative) Urine Urobilinogen Normal (Normal) mg/dL Ur Leukocyte Esterase Negative (Negative) Urine Microscopic RBC 0-3 (0-3) per hpf Urine Microscopic WBC 3-5 H (0-3) per hpf Ur Squamous Epith Cells Many H (None-Few) per lpf Urine Bacteria None Seen (None-Few) per hpf Hyaline Casts Few (None-Few) per lpf Salicylates (15.0-30.0) mg/dL Urine Opiates Screen (Oejkap=849) ng/mL Acetaminophen (10-20) mcg/mL Ur Barbiturates Screen (Zsvjgy=427) ng/mL Ur Phencyclidine Scrn (Cutoff=25) ng/mL Ur Amphetamines Screen (Vrevcs=5230) ng/mL U Benzodiazepines Scrn (Oithdo=628) ng/mL Urine Cocaine Screen (Cutoff= 300) ng/mL U Marijuana (THC) Screen (Cutoff = 50) ng/mL Ur Drug Screen Interp Blood Type A POSITIVE Antibody Screen NEGATIVE 05/17/18 05/17/18 05/17/18 Range/Units 21:04 21:12 21:45 WBC (4.3-11.1) K/mcL RBC (4.19-5.50) M/mcL Hgb (12.9-16.9) g/dL Hct (37.5-50.1) % MCV (83.0-100.0) fL MCH (28.0-33.3) pg MCHC (31.6-35.5) g/dL RDW (11.5-14.5) % Plt Count (140-400) K/mcL MPV (9.4-12.4) fL Immature Gran % (0-4) % Seg Neutrophils % % Lymphocytes % % Monocytes % % Eosinophils % % Basophils % % Neutrophils # (1.6-8.9) K/mcL Lymphocytes # (0.6-4.6) K/mcL Monocytes # (0.0-1.3) K/mcL Eosinophils # (0.0-0.6) K/mcL Basophils # (0.0-0.2) K/mcL Immature Plt Fraction (1.1-6.1) % PT (9.4-12.1) Seconds INR APTT (26.0-36.0) Seconds Sample Site R Radial R Radial ABG pH 7.18 L* 7.06 L* D (7.32-7.45) pH Units ABG pCO2 41 41 (35-45) mmHg ABG pO2 43 L* 79 L (85-104) mmHg ABG HCO3 15 L 12 L (21-27) mEq/L ABG Total CO2 16 L 13 L (20-26) mEq/L ABG O2 Saturation 67 L 89 L (95-98) % ABG Base Excess -12 L -17 L (-2 to 3) mEq/L Franklin Test Positive Positive O2 Delivery Device Cannula Cannula Inspired O2 32.0 32.0 (1-15=lpm [id number]=%) Sodium (136-145) mEq/L Potassium (3.5-5.1) mEq/L Chloride (98-107) mEq/L Carbon Dioxide (23-29) mEq/L BUN (8-23) mg/dL Creatinine (0.70-1.30) mg/dL Est GFR ( Amer) (> 60) Est GFR (Non-Af Amer) (> 60) BUN/Creatinine Ratio (6-26) Glucose (70-105) mg/dL Calculated Osmolality (280-300) Lactic Acid (0.5-2.2) mmol/L Calcium (8.6-10.3) mg/dL Total Bilirubin (0.3-1.0) mg/dL AST (13-39) Units/L ALT (7-52) Units/L Alkaline Phosphatase (34-104) Units/L Creatine Kinase (30-223) Units/L Troponin I (< 0.04) ng/mL Serum Total Protein (6.4-8.9) g/dL Albumin (3.5-5.7) g/dL Globulin (2.4-3.5) g/dL Albumin/Globulin Ratio (1.1-2.2) Urine Color (Yellow) Urine Clarity (Clear) Urine pH (5.0-8.0) pH Units Ur Specific [place] (1.010-1.025) Urine Protein (Neg-Trace) mg/dL Urine Glucose (UA) (Normal) mg/dL Urine Ketones (Negative) mg/dL Urine Blood (Negative) Urine Nitrite (Negative) Urine Bilirubin (Negative) Urine Urobilinogen (Normal) mg/dL Ur Leukocyte Esterase (Negative) Urine Microscopic RBC (0-3) per hpf Urine Microscopic WBC (0-3) per hpf Ur Squamous Epith Cells (None-Few) per lpf Urine Bacteria (None-Few) per hpf Hyaline Casts (None-Few) per lpf Salicylates (15.0-30.0) mg/dL Urine Opiates Screen Negative (Zpnxix=069) ng/mL Acetaminophen (10-20) mcg/mL Ur Barbiturates Screen Negative (Lthcyf=346) ng/mL Ur Phencyclidine Scrn Negative (Cutoff=25) ng/mL Ur Amphetamines Screen Negative (Bencea=4706) ng/mL U Benzodiazepines Scrn Positive H (Arszrf=341) ng/mL Urine Cocaine Screen Negative (Cutoff= 300) ng/mL U Marijuana (THC) Screen Negative (Cutoff = 50) ng/mL Ur Drug Screen Interp See Below Blood Type Antibody Screen 05/17/18 Range/Units 21:46 WBC (4.3-11.1) K/mcL RBC (4.19-5.50) M/mcL Hgb (12.9-16.9) g/dL Hct (37.5-50.1) % MCV (83.0-100.0) fL MCH (28.0-33.3) pg MCHC (31.6-35.5) g/dL RDW (11.5-14.5) % Plt Count (140-400) K/mcL MPV (9.4-12.4) fL Immature Gran % (0-4) % Seg Neutrophils % % Lymphocytes % % Monocytes % % Eosinophils % % Basophils % % Neutrophils # (1.6-8.9) K/mcL Lymphocytes # (0.6-4.6) K/mcL Monocytes # (0.0-1.3) K/mcL Eosinophils # (0.0-0.6) K/mcL Basophils # (0.0-0.2) K/mcL Immature Plt Fraction (1.1-6.1) % PT (9.4-12.1) Seconds INR APTT (26.0-36.0) Seconds Sample Site ABG pH (7.32-7.45) pH Units ABG pCO2 (35-45) mmHg ABG pO2 (85-104) mmHg ABG HCO3 (21-27) mEq/L ABG Total CO2 (20-26) mEq/L ABG O2 Saturation (95-98) % ABG Base Excess (-2 to 3) mEq/L Franklin Test O2 Delivery Device Inspired O2 (1-15=lpm [id number]=%) Sodium (136-145) mEq/L Potassium (3.5-5.1) mEq/L Chloride (98-107) mEq/L Carbon Dioxide (23-29) mEq/L BUN (8-23) mg/dL Creatinine (0.70-1.30) mg/dL Est GFR ( Amer) (> 60) Est GFR (Non-Af Amer) (> 60) BUN/Creatinine Ratio (6-26) Glucose (70-105) mg/dL Calculated Osmolality (280-300) Lactic Acid (0.5-2.2) mmol/L Calcium (8.6-10.3) mg/dL Total Bilirubin (0.3-1.0) mg/dL AST (13-39) Units/L ALT (7-52) Units/L Alkaline Phosphatase (34-104) Units/L Creatine Kinase (30-223) Units/L Troponin I (< 0.04) ng/mL Serum Total Protein (6.4-8.9) g/dL Albumin (3.5-5.7) g/dL Globulin (2.4-3.5) g/dL Albumin/Globulin Ratio (1.1-2.2) Urine Color (Yellow) Urine Clarity (Clear) Urine pH (5.0-8.0) pH Units Ur Specific [place] (1.010-1.025) Urine Protein (Neg-Trace) mg/dL Urine Glucose (UA) (Normal) mg/dL Urine Ketones (Negative) mg/dL Urine Blood (Negative) Urine Nitrite (Negative) Urine Bilirubin (Negative) Urine Urobilinogen (Normal) mg/dL Ur Leukocyte Esterase (Negative) Urine Microscopic RBC (0-3) per hpf Urine Microscopic WBC (0-3) per hpf Ur Squamous Epith Cells (None-Few) per lpf Urine Bacteria (None-Few) per hpf Hyaline Casts (None-Few) per lpf Salicylates < 2.5 L (15.0-30.0) mg/dL Urine Opiates Screen (Exxnsm=116) ng/mL Acetaminophen < 10 L (10-20) mcg/mL Ur Barbiturates Screen (Jdusnd=921) ng/mL Ur Phencyclidine Scrn (Cutoff=25) ng/mL Ur Amphetamines Screen (Nndkqo=1645) ng/mL U Benzodiazepines Scrn (Omastw=313) ng/mL Urine Cocaine Screen (Cutoff= 300) ng/mL U Marijuana (THC) Screen (Cutoff = 50) ng/mL Ur Drug Screen Interp Blood Type Antibody Screen
[2018-05-17 21:08] LABS: ABG Base Excess -12 mEq/L (-2 to 3); ABG HCO3 15 mEq/L (21-27); ABG Oxygen Saturation 67 % (95-98); ABG PCO2 41 mmHg (35-45); ABG PH 7.18 pH Units (7.32-7.45); ABG PO2 43 mmHg (85-104); ABG TCO2 16 mEq/L (20-26)
[2018-05-17 21:15] LABS: ABG Base Excess -17 mEq/L (-2 to 3); ABG HCO3 12 mEq/L (21-27); ABG Oxygen Saturation 89 % (95-98); ABG PCO2 41 mmHg (35-45); ABG PH 7.06 pH Units (7.32-7.45); ABG PO2 79 mmHg (85-104); ABG TCO2 13 mEq/L (20-26)
[2018-05-17] MEDS ORDERED: Lacri-Lube 3.5 GM TUBE BOTH EYES PRN (21:36)
[2018-05-17] MEDS ORDERED: Acetaminophen 650 MG RECTAL SUPP RC PRN (21:46)
[2018-05-17] MEDS ORDERED: Naloxone 0.4 MG/ML INJ IVP PRN (21:46)
[2018-05-17] MEDS ORDERED: Acetaminophen 325 MG TABLET PO PRN (21:46)
[2018-05-17] MEDS ORDERED: Ipratropium Neb 0.5 MG NEBULIZER IH PRN (21:57)
[2018-05-17] MEDS ORDERED: Vancomycin (wt based) 1,000 MG VIAL IVPB SCH (22:00)
[2018-05-17] MEDS ORDERED: 0.9 % Sodium Chloride 1,000 ML IVC SCH (22:00)
[2018-05-17] MEDS: Norepinephrine 4 MG in D5% in Water 250 ML IVC SCH (22:15)
[2018-05-17] MEDS ORDERED: Sod Bicarb 150mEq/D5W 150 MEQ/1,000 ML IV.SOLN IVC SCH (22:30)
--- NOTE | 2018-05-17 22:32 | Internal Med History&Physical ---
Date of Encounter: 05/17/18 Time of Encounter: 20:00 Internal Medicine - H&P: HPI Admitted From: Home Plans for Post Hospital Care: Home History of present illness: Mr. Yang is a 62 year old male with past medical history of schhizoaffective disorder, depression, panic disorder, smoker who presents after recurrent falls. EMS noted that pt was hypotensive and tachycardia. According to ED pt appeared pale and volume depleted. Pt had reportedly been given 3L of luids and BP had improved to SBP of 102. Pt was reportred to be satting on 97% on room in ED. Upon my arrival to ED, resident was about to place a central line into the patient due to SBP in low 80's. Pt was given a fourth fluid bolus. I added STAT ABG and requested update after central line placement. Pt was transfered to . Was called by nurse in 2N as pt's BP and mental state where deteriorating. Resp stated ABG done in ED was unsuccessful and reapeat done on the floor was abnormal. ABG done in ED at 21:04 PH 7.18, pcO2 41, pO2 43, HCO3 15, sat 67%, BE -12.3 done on the floor at 21:12 PH 7.06, pCO2 41, pO2 79, HCO3 12, BE -17, sat 89%. CODE STATUS FULL: needs verified. In ED WBC 11.1, hgb 10.9, hct 31.4, plt 95. Lactic acid 2.6. Na 135, K 4.2, Cl 108, BUN 16, Cr 2.13. CK 588 chest x ray at 15:48 XR/XR chest 1V portable IMPRESSION: Left lower lobe pneumonia with probable associated pleural effusion. Follow-up to resolution is recommended. Chest x ray at 20:13 for central line placement XR/XR chest 1V portable IMPRESSION: Right-sided central venous catheter placement. No pneumothorax. The right lateral costophrenic angle is not included in the [id number]. Small right pleural effusion cannot be excluded by this study. At least moderate left pleural effusion and opacification of the left hemithorax, increased since the prior study. The findings were sent to the Radiology Results Communication [facility] at 9:16 pm on 05/17/2018to be communicated to a licensed caregiver. CT head non-contrast CT/CT head/brain wo con IMPRESSION: No acute intracranial abnormality. Past Med Surg Social Fam HX - Past Medical History Medical history: hypertension Psychiatric history: anxiety, bipolar, depression - Past Surgical History Surgical History: no surgical history - Social History Smoking Status: Heavy tobacco smoker Smokeless Tobacco Status: No Alcohol use: none Drug use: none - Family History Father Family Member Ethnicity: Non- Living Status: Mother Adopted: No Family Member Ethnicity: Non- Living Status: Still Living Hx Family Cardiac Disorders: Yes (Unknown) Hx Family Respiratory Disorders: No Hx Family Cancer: Yes (Aunt) Hx Family GI Disorders: No Hx Family Endocrine Disorder: No Hx Family Neuromuscular Disorders: No Hx Family Neurologic Disorders: No Hx Family HEENT Disorders: No Hx Family Autoimmune Disorders: No Internal Medicine - H&P: Meds OLANZapine [Zyprexa] 30 mg PO HS 10/29/15 [History] Trihexyphenidyl [Artane] 2 mg PO BID 10/29/15 [History] Fluphenazine [Prolixin] 2.5 mg PO BID #8 tablet 05/03/17 [Rx] Trazodone HCl 300 mg PO HS 05/17/18 [History] diazePAM [Valium] 10 mg PO TID PRN 05/17/18 [History] hydrOXYzine pamoate [HydrOXYzine Pamoate] 25 mg PO BID 05/17/18 [History] 3 Allergy/AdvReac Type Severity Reaction Status Date / Time No Known Allergies Allergy Verified 05/17/18 18:27 All Systems PM: A 10-system review of systems was performed and is negative for pertinent findings except as documented above in the HPI. - Constitutional Vitals: Temp Pulse Resp BP Pulse Ox 97.5 F L 133 17 61/45 100 05/17/18 21:11 05/17/18 21:11 05/17/18 21:49 05/17/18 21:49 05/17/18 21:49 General appearance: Present: A&O X 2, severe distress Exam: acute respiratory distress - Head Head exam: Present: atraumatic, normocephalic - Eye Eye exam: Present: PERRL, conjuntiva pink, sclera anicteric Pupils: Present: PERRL - Neck Neck exam general surgery: Present: supple, trachea midline. Absent: lymphadenopathy - Respiratory Respiratory exam: Present: decreased breath sounds. Absent: accessory muscle use, rales, rhonchi, wheezes Additional comments: diminished breath sounds left lung - Cardiovascular Cardiovascular exam: Present: RRR, +S1, +S2. Absent: diastolic murmur, gallop, rubs, systolic murmur - GI/Abdominal GI/Abdominal exam: Present: normal bowel sounds, soft, no peritoneal signs. Absent: distended, tenderness - Extremities Exam Extremities exam: Present: warm, radial pulses palpable and symmetrical. Absent : calf tenderness, cyanotic, pedal edema - Neurological Exam Neurological exam: Present: CN II-XII intact, oriented X3, no focal deficits. Absent: pronater drift, facial droop, speech deficit - Skin Skin exam: Present: dry, intact Internal Med - H&P Results - Labs CBC & Chem 7: 05/17/18 15:57 05/17/18 15:57 Labs: Urine 05/17/18 Range/Units 18:15 Urine Color Yellow (Yellow) Urine Clarity Cloudy A (Clear) Urine pH 5.5 (5.0-8.0) pH Units Ur Specific [place] 1.016 (1.010-1.025) Urine Protein Negative (Neg-Trace) mg/dL Urine Glucose (UA) Normal (Normal) mg/dL - ABG Interpretation ABG results: 05/17/18 05/17/18 21:04 21:12 ABG pH 7.18 L* 7.06 L* D ABG pCO2 41 41 ABG pO2 43 L* 79 L ABG HCO3 15 L 12 L ABG Total CO2 16 L 13 L ABG O2 Saturation 67 L 89 L ABG Base Excess -12 L -17 L - Impressions ITS Impressions Chest X-Ray 05/17/18 20:13 IMPRESSION: Right-sided central venous catheter placement. No pneumothorax. The right lateral costophrenic angle is not included in the [id number]. Small right pleural effusion cannot be excluded by this study. At least moderate left pleural effusion and opacification of the left hemithorax, increased since the prior study. The findings were sent to the Radiology Results Communication Center at 9:16 pm on 05/17/2018to be communicated to a licensed caregiver. D/ / Kandi Kelsey Cha, MD / Kandi Kelsey Cha, MD Interpreting Provider: Kandi Kelsey Cha, MD - Assessment and plan (1) Acute respiratory failure with hypoxia Current Visit: Yes Status: Acute Assessment and plan: Patient transferred to ICU and intubated due to worsening ABG. Given Vanc, Zosyn and Levaquin in ED and will continue for now. Vent orders added. Will send sputum for culture, blood culture, legionella AG, Urine Strep, and rapid flu. Case discussed with pulm/conveyor maintenance mechanic Dr. De La Rosa and he will see pt in am. (2) Acute and chronic respiratory failure Current Visit: Yes Status: Acute Assessment and plan: Hx of COPD and smoker. Not on home oxygen at baseline. Will place on nebs and IV steroid as well. Pulmonology consulted to see. Qualifiers: Qualified Code(s): J96.20 - Acute and chronic respiratory failure, unspecified whether with hypoxia or hypercapnia (3) Lactate blood increase Current Visit: No Status: Acute Assessment and plan: Will recheck lactic acid level now and in am. Will monitor (4) Acute kidney injury superimposed on CKD Current Visit: No Status: Acute (5) Severe sepsis Current Visit: Yes Status: Acute Assessment and plan: Pt's was given total of 5L bolus. 4 in Ed and one in ICU. Will place on Bicarb gtt due to HCO3 of 17. Will keep on maitanance fluids while on pressor support. Started on Levophed initially but will switch to precedex. Pt discussed with conveyor maintenance mechanic and he has agreed to assume care in am. (6) Acute metabolic encephalopathy Current Visit: No Status: Acute Assessment and plan: This is likely due to sever sepsis and PNA. Will continue to traet underlying condition. Non contrast head Ct neg for acute process. (7) Rhabdomyolysis Current Visit: Yes Status: Acute Assessment and plan: Will give IVF and recheck CK in am. Had be given total of 4 L bolus in ED. Qualifiers: Qualified Code(s): T79.6XXA - Traumatic ischemia of muscle, initial encounter (8) Pneumonia Current Visit: Yes Status: Acute Assessment and plan: CAP. Checking sputum, legionella, strep, and flu. Will continue on broad spectrum antibiotic for now. Qualifiers: Pneumonia type: due to unspecified organism Laterality: left Lung location: lower lobe of lung Qualified Code(s): J18.1 - Lobar pneumonia, unspecified organism (9) Parapneumonic effusion Current Visit: Yes Status: Acute Assessment and plan: Will check CT chest non contrast once pt's BP and other vitals has been stabilized. (10) COPD exacerbation Current Visit: Yes Status: Acute Assessment and plan: Hx of COPD and smoker. Not on home oxygen at baseline. Will place on nebs and IV steroid as well. Pulmonology consulted to see. (11) Elevated transaminase level Current Visit: Yes Status: Acute Assessment and plan: Will check hepatitis panel. Possibly due to sepsis. Will recheck LFT's in am (12) Current smoker Current Visit: Yes Status: Acute Assessment and plan: Cessation recommended (13) DVT prophylaxis Current Visit: No Status: Acute Assessment and plan: Heparin - Time Spent With Patient Total time spent is greater than 50% in coordination of care (as documented) at patient's floor/unit and/or counseling patient: Greater than 35 minutes (critical care time >74 minutes)
[2018-05-17] MEDS: FentaNYL (PF) 1,000 MCG in 0.9 % Sodium Chloride 80 ML IVC SCH (22:44)
[2018-05-17] MEDS: Dexmedetomidine HCl 400 MCG/100 ML MLS IVC SCH (22:51)
[2018-05-17] MEDS: Lacri-Lube 3.5 GM TUBE BOTH EYES SCH (22:51)
[2018-05-17] MEDS: MethylPREDNISolone 40 MG/ML VIAL IVP SCH (22:51)
[2018-05-17 22:54] LABS: ABG Base Excess -16 mEq/L (-2 to 3); ABG HCO3 13 mEq/L (21-27); ABG Oxygen Saturation 99 % (95-98); ABG PCO2 46 mmHg (35-45); ABG PH 7.06 pH Units (7.32-7.45); ABG PO2 203 mmHg (85-104); ABG TCO2 14 mEq/L (20-26); Blood Gas Modality VC; Blood Gas PEEP 5 cm H2O; Blood Gas Respiration Rate 16; Blood Gas VT 480 cc
[2018-05-17 23:02] LABS: Amphetamine Screen,Urine Negative ng/mL (Cutoff=1000); Barbiturate Screen,Urine Negative ng/mL (Cutoff=200); Benzodiazepines Screen,Urine Positive ng/mL (Cutoff=200); Cannabinoid Screen,Urine Negative ng/mL (Cutoff = 50); Cocaine Screen,Urine Negative ng/mL (Cutoff= 300); Opiate Screen,Urine Negative ng/mL (Cutoff=300); Phencyclidine Screen,Urine Negative ng/mL (Cutoff=25)
[2018-05-17] MEDS: Ipratropium/Albuterol Neb 3 ML IH SCH (23:10)
[2018-05-17 23:46] LABS: Acetaminophen < 10 mcg/mL (10-20); Salicylate < 2.5 mg/dL (15.0-30.0)
[2018-05-17] MEDS: LACTATED RINGERS IVC SCH (23:57)
[2018-05-17] MEDS: SODIUM BICARBONATE IVC SCH (23:57)
[2018-05-17] MEDS: D5 IVC SCH (23:57)
[2018-05-18] MEDS: Norepinephrine 4 MG in D5% in Water 250 ML IVC SCH (01:54)
[2018-05-18 02:45] LABS: Hepatitis B Surface Antigen Nonreactive (Nonreactive)
[2018-05-18] MEDS: Lacri-Lube 3.5 GM TUBE BOTH EYES SCH ×5 (03:22→20:32)
[2018-05-18] MEDS: Ipratropium/Albuterol Neb 3 ML IH SCH ×4 (03:45→22:15)
[2018-05-18 04:51] LABS: Basophils % 0.1 %
[2018-05-18 04:53] LABS: Eosinophils % 0.1 %; Hematocrit 19.5 % (37.5-50.1); Hemoglobin 6.7 g/dL (12.9-16.9); Immature Granulocytes % 0.9 % (0-4); Immature Platelets 6.3 % (1.1-6.1); Lymphocytes % 5.7 %; Mean Corpuscular HGB Conc 34.4 g/dL (31.6-35.5); Mean Corpuscular Hemoglobin 31.3 pg (28.0-33.3); Mean Corpuscular Volume 91.1 fL (83.0-100.0); Mean Platelet Volume 11.6 fL (9.4-12.4); Monocytes # 0.8 K/mcL (0.0-1.3); Monocytes % 4.3 %; Neutrophils # 15.7 K/mcL (1.6-8.9); Red Blood Count 2.14 M/mcL (4.19-5.50); Red Cell Distribution Width 14.7 % (11.5-14.5); Segmented Neutrophils % 88.9 %
[2018-05-18] MEDS: MethylPREDNISolone 40 MG/ML VIAL IVP SCH ×3 (05:10→16:41)
[2018-05-18] MEDS: *HR* Heparin 5,000 UNIT/ML VIAL SQ SCH ×3 (05:10→17:27)
[2018-05-18] MEDS: Dexmedetomidine HCl 400 MCG/100 ML MLS IVC SCH ×2 (05:11→12:51)
[2018-05-18 05:17] LABS: Calcium 6.9 mg/dL (8.6-10.3); Potassium 5.5 mEq/L (3.5-5.1)
[2018-05-18 05:23] LABS: Platelet Count 67 K/mcL (140-400)
[2018-05-18 05:26] LABS: Platelet Estimate Decreased (Normal)
[2018-05-18] MEDS: FentaNYL (PF) 1,000 MCG in 0.9 % Sodium Chloride 80 ML IVC SCH ×2 (05:30→15:55)
[2018-05-18] MEDS: Norepinephrine 8 MG in D5% in Water 500 ML IVC SCH (05:31)
[2018-05-18 05:35] LABS: ABG Base Excess -8 mEq/L (-2 to 3); ABG HCO3 19 mEq/L (21-27); ABG Oxygen Saturation 96 % (95-98); ABG PCO2 41 mmHg (35-45); ABG PH 7.27 pH Units (7.32-7.45); ABG PO2 95 mmHg (85-104); ABG TCO2 20 mEq/L (20-26); Blood Gas Modality VC; Blood Gas PEEP 5 cm H2O; Blood Gas Respiration Rate 16; Blood Gas VT 480 cc
[2018-05-18] MEDS: Pantoprazole 40 MG VIAL IVP SCH ×2 (05:35→16:40)
[2018-05-18 05:51] LABS: Albumin 2.6 g/dL (3.5-5.7); Albumin/Globulin Ratio 1.2 (1.1-2.2); Bilirubin,Direct 0.2 mg/dL (0.0-0.2); Bilirubin,Indirect 0.4 mg/dL (0.0-1.2); Bilirubin,Total 0.6 mg/dL (0.3-1.0); Globulin 2.2 g/dL (2.4-3.5); Total Protein 4.8 g/dL (6.4-8.9)
[2018-05-18 07:24] LABS: Influenza A PCR Negative (Negative); Influenza B PCR Negative (Negative); Resp. Syncytial Virus PCR Negative (Negative)
[2018-05-18] MEDS ORDERED: Dextrose Gel 15 GM/37.5 ML TUBE PO PRN ×2 (07:39)
[2018-05-18] MEDS ORDERED: D5% in Water 1,000 ML IVC PRN (07:39)
[2018-05-18] MEDS ORDERED: *HR* Dextrose 50 % in Water (Syg) 50 ML SYRINGE IVP PRN (07:39)
[2018-05-18] MEDS: Piperacillin/Tazobactam 3.375 GM in 0.9 % Sodium Chloride Mini Bag 100 ML IVPB SCH ×2 (07:53→16:04)
[2018-05-18] MEDS: Nicotine 21 MG PATCH.TD24 TD SCH (07:55)
[2018-05-18] MEDS: Chlorhexidine Rinse 15 ML MOUTHWASH MM SCH ×2 (07:55→20:31)
[2018-05-18] MEDS: Insulin LISPRO 300 UNITS/3 ML VIAL SQ SCH ×4 (08:10→20:27)
[2018-05-18] MEDS ORDERED: Aminoglycoside Consult 1 EACH MC ONE (08:18)
[2018-05-18] MEDS ORDERED: *HR* Atropine Sulfate 1 MG/10 ML SYRINGE IV ONE (08:27)
[2018-05-18] MEDS ORDERED: Pantoprazole 40 MG VIAL IVP SCH (09:00)
[2018-05-18] MEDS ORDERED: LACTATED RINGERS IVC SCH (09:45)
[2018-05-18] MEDS ORDERED: SODIUM BICARBONATE IVC SCH (09:45)
[2018-05-18] MEDS ORDERED: D5 IVC SCH (09:45)
[2018-05-18] MEDS ORDERED: 0.9 % Sodium Chloride 250 ML ONE (09:51)
--- NOTE | 2018-05-18 11:04 | Pulmonology Consult Note ---
<Santosh Hairston - Last Filed: 05/18/18 17:38> Date of Encounter: 05/18/18 Time of Encounter: 08:00 Assessment and Plan (1) Septic shock Current Visit: Yes Status: Acute - patient had elevated lactate on admission (6.7), tachyardiac, and hypotensive refractory to IV boluses. - likely due to his PNA , and Left large pleural effusion - currently on the Vanc/Zosyn/Levafloxacin - currently intubated , pressors on board (levofed 2 microgram) - continue to monitor the hemodynamic status, trend lactate q6h (2) Acute respiratory failure with hypoxia Current Visit: Yes Status: Acute -likely due to his LLL pneumonia and pleural effusion - patient has a Hx of COPD, currently unsure if he is on any medication - patient is currently on Vanc/Zosy and Levofloxacin. he's intubated with pressors on board (levofed : 2microgram) - He is scheduled to undergo thoracentesis for his pleural effusion tomorrow once hemodynamically stable (3) CKD (chronic kidney disease) Current Visit: Yes Status: Acute - patient has a Hx of CKD stage 3, he is at a risk factor for worsening kidney function because of age and ethnicity (-guinean) - his GFR was 38 when he was admitted but currently it is trending back to his baseline (~50) -avoid all nephrotoxic agents, we will continue to monitor patient's hemodynamic status Qualifiers: Qualified Code(s): N18.3 - Chronic kidney disease, stage 3 (moderate) (4) GENE (acute kidney injury) Current Visit: Yes Status: Acute - Patient Cr was 2.13 on admission, currently it is trending low 1.68-> 1.6 - This could be secondary to his septic shock, and Hx of CKD state 3 - continue monitoring patient's kidney function, (5) Anemia Current Visit: Yes Status: Acute - patient's Hb has been trending down from 10.9 to 6.7 currently - He is s/p 2 units of pRBCs. - abdominal CT was negative for any bleeding, head CT was negative for any hemorrhage - Trend H&H, Stool Guaiac test was negative, Thoracentesis pending once the patient is hemodynamically pending Qualifiers: Qualified Code(s): D64.9 - Anemia, unspecified (6) HAP (hospital-acquired pneumonia) Current Visit: Yes Status: Acute - Patient was admitted because of inability to protect his airway seconday to septic shock - Patient is currently on vancomycin, Zosyn and levofloxacin. - Patient's chest x-ray was positive for consolidative opacity in the apical left upper lobe - Serology work up was negative for RSV , Influenza A and B, HIV, and Hep B. - Currently he is intubated - pressors on board - We are going to continue monitoring his hemodynamic status. (7) Pleural effusion Current Visit: Yes Status: Acute - Patient's CT was positive for Large left pleural effusion, resulting in mediastinal shift to the right. - Effusion could be likely secondary to his pneumonia - Thoracentesis pending once patient is hemodynamicaly stable- cause of the effusion can be delineated once we can have the pleural fluid to analyze ( Transudate vs Exudate) - patient is currently intubated-pressors on board. Will hold off on pressors if the MAP > 65 (8) DVT prophylaxis Current Visit: No Status: Acute on scds History of Present Illness History of present illness: This is a 62-year-old male with a past medical history of schizoaffective disorder, depression, panic disorder, COPD ( not on home oxygen) presented to the ED because of cough, dizziness and recurrent falls. Patient did not lose his consciousness. His head CT was negative for any intracranial bleeding or fractures. Initial workup in the ER showed a lower lobe pneumonia with probable associated pleural effusion. This was confirmed by a CT of the chest which showed a large left pleural effusion along with consolidative opacity in the left upper lobe. Patient's white blood count and lactic acid were elevated (11.1 and 2.6 respectively ) .His ABG showed metabolic acidosis with pH 7.18, bicarbonate 15 and base excess of -12.3. Patient blood pressure initially improved with IV fluids but eventually his BP got refractory to the fluids and went in low 80s. Patient ABG showed a worsening metabolic acidosis with pH 7.06 , bicarbonate 12 with base excess of -17 . Patient was transferred to the ICU, and intubated because of concern for septic shock. Past Med Surg Social Fam HX - Past Medical History Medical history: hypertension Psychiatric history: anxiety, bipolar, depression - Past Surgical History Surgical History: no surgical history - Social History Smoking Status: Heavy tobacco smoker Smokeless Tobacco Status: No Alcohol use: none Drug use: none - Family History Father Family Member Ethnicity: Non- Living Status: Mother Adopted: No Family Member Ethnicity: Non- Living Status: Still Living Hx Family Cardiac Disorders: Yes (Unknown) Hx Family Respiratory Disorders: No Hx Family Cancer: Yes (Aunt) Hx Family GI Disorders: No Hx Family Endocrine Disorder: No Hx Family Neuromuscular Disorders: No Hx Family Neurologic Disorders: No Hx Family HEENT Disorders: No Hx Family Autoimmune Disorders: No Medications and Allergies OLANZapine [Zyprexa] 30 mg PO HS 10/29/15 [History] Trihexyphenidyl [Artane] 2 mg PO BID 10/29/15 [History] Fluphenazine [Prolixin] 2.5 mg PO BID #8 tablet 05/03/17 [Rx] Trazodone HCl 300 mg PO HS 05/17/18 [History] diazePAM [Valium] 10 mg PO TID PRN 05/17/18 [History] hydrOXYzine pamoate [HydrOXYzine Pamoate] 25 mg PO BID 05/17/18 [History] 3 Allergy/AdvReac Type Severity Reaction Status Date / Time No Known Allergies Allergy Verified 05/17/18 18:27 All Systems: The remainder of the systems were reviewed and are negative - Constitutional Constitutional: frequent falls Physical Examination Vital Signs: Vital Signs, Last 4 Hours Temp Pulse Resp BP Pulse Ox 05/18/18 10:50 98.2 F 05/18/18 10:15 99.6 F 81 16 85/60 05/18/18 10:02 99.5 F 82 16 83/60 98 05/18/18 10:00 81 16 85/60 98 05/18/18 09:55 16 88/60 96 05/18/18 09:00 81 16 89/60 98 05/18/18 08:30 78 16 89/64 98 05/18/18 07:29 16 90/62 97 General appearance: no acute distress, asleep (following commands not agitated) Auscultation: bilateral: diminished breath sounds Cardiovascular: regular rate and rhythm (- no gallops, murmurs or rubs) Gastrointestinal: soft, non-tender, non-distended Extremities: no edema, no clubbing, pulses normal Ventilator Settings Ventilator Settings: Ventilator Settings, Last 8 Hours Ventilator Tidal Volume 500 Setting Ventilator Tidal Volume 500 Setting Ventilator Tidal Volume 500 Setting Ventilator Tidal Volume 500 Setting Ventilator Tidal Volume 500 Setting Ventilator Tidal Volume 500 Setting Ventilator Tidal Volume 480 Setting Ventilator Tidal Volume 480 Setting Ventilator Tidal Volume 480 Setting Ventilator Tidal Volume 480 Setting Ventilator Tidal Volume 480 Setting Ventilator Tidal Volume 480 Setting Ventilator Respiratory Rate 16 Setting Ventilator Respiratory Rate 16 Setting Ventilator Respiratory Rate 16 Setting Ventilator Respiratory Rate 16 Setting Ventilator Respiratory Rate 16 Setting Ventilator Respiratory Rate 16 Setting Ventilator Respiratory Rate 16 Setting Ventilator Respiratory Rate 16 Setting Ventilator Respiratory Rate 16 Setting Ventilator Respiratory Rate 16 Setting Ventilator Respiratory Rate 16 Setting Ventilator Respiratory Rate 16 Setting Actual Respiratory Rate 16 Actual Respiratory Rate 16 Actual Respiratory Rate 16 Actual Respiratory Rate 16 Actual Respiratory Rate 16 Actual Respiratory Rate 16 Actual Respiratory Rate 17 Actual Respiratory Rate 16 Actual Respiratory Rate 16 Actual Respiratory Rate 16 Actual Respiratory Rate 16 Positive End Expiratory 5 Pressure Positive End Expiratory 5 Pressure Positive End Expiratory 5 Pressure Positive End Expiratory 5 Pressure Positive End Expiratory 5 Pressure Positive End Expiratory 5 Pressure Positive End Expiratory 5 Pressure Positive End Expiratory 5 Pressure Positive End Expiratory 5 Pressure Positive End Expiratory 5 Pressure Positive End Expiratory 5 Pressure Positive End Expiratory 5 Pressure Peak Inspiratory Airway 15 Pressure Peak Inspiratory Airway 20 Pressure Peak Inspiratory Airway 15 Pressure Peak Inspiratory Airway 15 Pressure Peak Inspiratory Airway 19 Pressure Peak Inspiratory Airway 15 Pressure Peak Inspiratory Airway 15 Pressure Peak Inspiratory Airway 20 Pressure Peak Inspiratory Airway 20 Pressure Peak Inspiratory Airway 20 Pressure Peak Inspiratory Airway 20 Pressure Results - Laboratory Findings CBC and BMP: 05/18/18 17:00 05/18/18 10:30 ABG ABG pH 7.27 pH Units (7.32-7.45) L 05/18/18 05:32 ABG pCO2 41 mmHg (35-45) 05/18/18 05:32 ABG pO2 95 mmHg (85-104) 05/18/18 05:32 ABG O2 Saturation 96 % (95-98) 05/18/18 05:32 PT/INR, D-dimer PT 14.3 Seconds (9.4-12.1) H 05/17/18 15:57 Abnormal lab findings: Abnormal lab results WBC 17.6 K/mcL (4.3-11.1) H D 05/18/18 04:00 RBC 2.14 M/mcL (4.19-5.50) L 05/18/18 04:00 Hgb 6.7 g/dL (12.9-16.9) L D 05/18/18 04:00 Hct 19.5 % (37.5-50.1) L 05/18/18 04:00 RDW 14.7 % (11.5-14.5) H 05/18/18 04:00 Plt Count 67 K/mcL (140-400) L 05/18/18 04:00 Neutrophils # 15.7 K/mcL (1.6-8.9) H 05/18/18 04:00 Platelet Estimate Decreased (Normal) L 05/18/18 04:00 Immature Plt Fraction 6.3 % (1.1-6.1) H 05/18/18 04:00 PT 14.3 Seconds (9.4-12.1) H 05/17/18 15:57 ABG pH 7.27 pH Units (7.32-7.45) L 05/18/18 05:32 ABG HCO3 19 mEq/L (21-27) L 05/18/18 05:32 ABG Base Excess -8 mEq/L (-2 to 3) L 05/18/18 05:32 Sodium 134 mEq/L (136-145) L 05/18/18 04:00 Chloride 111 mEq/L (98-107) H 05/18/18 04:00 Carbon Dioxide 17 mEq/L (23-29) L 05/18/18 04:00 Creatinine 1.68 mg/dL (0.70-1.30) H 05/18/18 04:00 Est GFR ( Amer) 50 (> 60) L 05/18/18 04:00 Est GFR (Non-Af Amer) 41 (> 60) L 05/18/18 04:00 Glucose 277 mg/dL (70-105) H 05/18/18 04:00 POC Glucose 222 mg/dL (70-99) H 05/18/18 10:41 Lactic Acid 2.6 mmol/L (0.5-2.2) H 05/18/18 10:30 Calcium 6.9 mg/dL (8.6-10.3) L 05/18/18 04:00 AST 40 Units/L (13-39) H 05/18/18 04:00 Creatine Kinase 588 Units/L (30-223) H 05/17/18 15:57 Serum Total Protein 4.8 g/dL (6.4-8.9) L 05/18/18 04:00 Albumin 2.6 g/dL (3.5-5.7) L 05/18/18 04:00 Globulin 2.2 g/dL (2.4-3.5) L 05/18/18 04:00 Urine Clarity Cloudy (Clear) A 05/17/18 18:15 Urine Microscopic WBC 3-5 per hpf (0-3) H 05/17/18 18:15 Ur Squamous Epith Cells Many per lpf (None-Few) H 05/17/18 18:15 Salicylates < 2.5 mg/dL (15.0-30.0) L 05/17/18 21:46 Acetaminophen < 10 mcg/mL (10-20) L 05/17/18 21:46 U Benzodiazepines Scrn Positive ng/mL (Dicyka=[id number]) H 05/17/18 21:45 - Microbiology Findings Microbiology Findings: Microbiology, Last 48 Hours 05/17/18 22:16 Blood Culture - Preliminary Central Venous Catheter Culture is incubating and being continuously monitored for growth. Final report to follow. - Clinical Findings Intake & Output: Intake & Output 05/17/18 05/18/18 05/18/18 23:59 07:59 15:59 Intake Total 1000 / 5400 454 / 454 300 / 300 Output Total 1600 / 1600 450 / 450 225 / 225 Balance -600 / 3800 4 / 4 75 / 75 Weight 89.6 kg Consult Discharge Plan - Plan Referrals: NONE,PCP [Primary Care Provider] - <Juan Wilson - Last Filed: 05/19/18 15:22> Date of Encounter: 05/19/18 All Systems: The remainder of the systems were reviewed and are negative Physical Examination Vital Signs: Vital Signs, Last 4 Hours Temp Pulse Resp BP Pulse Ox 05/19/18 14:00 99 23 98/60 95 05/19/18 13:00 105 23 108/83 99 05/19/18 12:00 111 17 140/62 97 05/19/18 11:49 110 05/19/18 11:32 97.3 F L Ventilator Settings Ventilator Settings: Ventilator Settings, Last 8 Hours Ventilator Tidal Volume 500 Setting Ventilator Respiratory Rate 16 Setting Actual Respiratory Rate 18 Positive End Expiratory 5 Pressure Peak Inspiratory Airway 19 Pressure Results - Laboratory Findings CBC and BMP: 05/19/18 04:59 05/19/18 04:59 ABG ABG pH 7.39 pH Units (7.32-7.45) 05/19/18 04:52 ABG pCO2 34 mmHg (35-45) L 05/19/18 04:52 ABG pO2 60 mmHg (85-104) L 05/19/18 04:52 ABG O2 Saturation 91 % (95-98) L 05/19/18 04:52 PT/INR, D-dimer PT 14.3 Seconds (9.4-12.1) H 05/17/18 15:57 Abnormal lab findings: Abnormal lab results WBC 21.4 K/mcL (4.3-11.1) H 05/19/18 04:59 RBC 2.75 M/mcL (4.19-5.50) L 05/19/18 04:59 Hgb 8.7 g/dL (12.9-16.9) L 05/19/18 04:59 Hct 24.8 % (37.5-50.1) L 05/19/18 04:59 RDW 15.4 % (11.5-14.5) H 05/19/18 04:59 Plt Count 65 K/mcL (140-400) L 05/19/18 04:59 Neutrophils # 19.0 K/mcL (1.6-8.9) H 05/19/18 04:59 Platelet Estimate Decreased (Normal) L 05/18/18 04:00 Immature Plt Fraction 6.7 % (1.1-6.1) H 05/19/18 04:59 PT 14.3 Seconds (9.4-12.1) H 05/17/18 15:57 ABG pCO2 34 mmHg (35-45) L 05/19/18 04:52 ABG pO2 60 mmHg (85-104) L 05/19/18 04:52 ABG O2 Saturation 91 % (95-98) L 05/19/18 04:52 ABG Base Excess -4 mEq/L (-2 to 3) L 05/19/18 04:52 Chloride 112 mEq/L (98-107) H 05/19/18 04:59 Carbon Dioxide 20 mEq/L (23-29) L 05/19/18 04:59 Creatinine 1.52 mg/dL (0.70-1.30) H 05/19/18 04:59 Est GFR ( Amer) 56 (> 60) L 05/19/18 04:59 Est GFR (Non-Af Amer) 47 (> 60) L 05/19/18 04:59 Glucose 128 mg/dL (70-105) H 05/19/18 04:59 POC Glucose 142 mg/dL (70-99) H 05/19/18 00:18 Lactic Acid 3.5 mmol/L (0.5-2.2) H 05/19/18 04:59 Calcium 8.2 mg/dL (8.6-10.3) L 05/19/18 04:59 AST 40 Units/L (13-39) H 05/18/18 04:00 Creatine Kinase 588 Units/L (30-223) H 05/17/18 15:57 Serum Total Protein 4.8 g/dL (6.4-8.9) L 05/19/18 04:59 Albumin 2.6 g/dL (3.5-5.7) L 05/18/18 04:00 Globulin 2.2 g/dL (2.4-3.5) L 05/18/18 04:00 Urine Clarity Cloudy (Clear) A 05/17/18 18:15 Urine Microscopic WBC 3-5 per hpf (0-3) H 05/17/18 18:15 Ur Squamous Epith Cells Many per lpf (None-Few) H 05/17/18 18:15 Pleural RBC 3.192 M/mcL (0.000-0.002) H 05/19/18 11:00 Pleural Tot Nuc Cell 4571 TNC/mcL (0-1000) H 05/19/18 11:00 Salicylates < 2.5 mg/dL (15.0-30.0) L 05/17/18 21:46 Acetaminophen < 10 mcg/mL (10-20) L 05/17/18 21:46 U Benzodiazepines Scrn Positive ng/mL (Oqtkta=350) H 05/17/18 21:45 Hepatitis C Ab Screen Reactive (Nonreactive) H 05/17/18 23:20 - Microbiology Findings Microbiology Findings: Microbiology, Last 48 Hours 05/19/18 11:00 Gram Stain - Final Pleural Fluid 05/18/18 12:29 Sputum Culture - Preliminary Sputum 05/17/18 22:16 Blood Culture - Preliminary Central Venous Catheter Culture is incubating and being continuously monitored for growth. Final report to follow. - Clinical Findings Intake & Output: Intake & Output 05/18/18 05/19/18 05/19/18 23:59 07:59 15:59 Intake Total 600 / 600 121 / 121 100 / 100 Output Total 200 / 200 400 / 400 400 / 400 Balance 400 / 400 -279 / -279 -300 / -300 Weight 93 kg - Attending Attestation This note was dictated on 05/19/2018, however patient was seen and examined and discussed the case with the resident as well as nursing staff on 05/18/2018 I examined this patient and my medical decision-making was reviewed with the Resident Physician. I agree with the documented findings, disposition and treatment plan as described except to the extent set forth below. Patient seen and examined. Labs, radiology, chart personally reviewed. Agree with resident's history and physical, assessment, plan with following comments: [employer]: Patient does not follows commands, patient is on sedation for the vent synchrony Pulmonary: Acceptable oxygenation and ventilation. Patient with pleural effusion which I suspect it has hemothorax for the reason that his hemoglobin has dropped significantly and also evidence of ecchymosis on the left side of his chest and when more hemodynamically stable then we will have diagnostic and therapeutic thoracentesis. I have changed vent setting because of his ABG finding. Cardiovascular: Patient is in shock which I suspect multifactorial and septic versus hypovolemic from blood loss in the differential diagnosis. GI: Nutrition per dietary and GI prophylaxis per routine. Unlikely GI bleed. Heme: DVT prophylaxis per routine. Blood transfusion if hemoglobin drops. ID: Continue antibiotics and plan to de-escalation Renal; urine out put and renal funtion reviewed Endorcine: blood glucose is monitored Lines: all lines checked and no evidence of infections Skin: skin care to prevent pressure ulcers per nursing routine care I spent 35 min of Critical Care time with this patient. It involved decision making of high complexity to assess, manipulate, and support vital organ system failure and/or to prevent further life threatening deterioration of the patient' s condition. The time involved in the performance of separately reportable procedures was not counted toward critical care time.
[2018-05-18 11:06] LABS: BUN/Creatinine Ratio 10 (6-26); Blood Urea Nitrogen 16 mg/dL (8-23); Calcium 7.1 mg/dL (8.6-10.3); Carbon Dioxide 24 mEq/L (23-29); Chloride 111 mEq/L (98-107); Glucose 209 mg/dL (70-105); Magnesium 1.7 mg/dL (1.6-2.6); Osmolality,Calculated 291 (280-300); Potassium 4.3 mEq/L (3.5-5.1); Sodium 137 mEq/L (136-145); eGFR For Non-African Americans 44 (> 60)
[2018-05-18 11:07] LABS: Troponin I < 0.03 ng/mL (< 0.04)
[2018-05-18] MEDS: SODIUM BICARBONATE IVC SCH (13:35)
[2018-05-18] MEDS: D5 IVC SCH (13:35)
[2018-05-18] MEDS: LACTATED RINGERS IVC SCH (13:35)
[2018-05-18] MEDS ORDERED: *HR* Midazolam HCl 2 MG/2 ML VIAL IVP PRN (15:28)
[2018-05-18] MEDS ORDERED: *HR* Midazolam HCl 2 MG/2 ML VIAL IVP SCH (15:30)
[2018-05-18] MEDS ORDERED: Levofloxacin 750 MG/150 ML 750 MG/150 ML BAG IVPB SCH (16:00)
[2018-05-18] MEDS: Levofloxacin 750 MG/150 ML 750 MG/150 ML BAG IVPB SCH (16:04)
[2018-05-18 17:18] LABS: Hematocrit 26.4 % (37.5-50.1)
[2018-05-18 17:29] LABS: Hemoglobin 9.4 g/dL (12.9-16.9)
[2018-05-18] MEDS: OLANZapine 10 MG TAB.RAPDIS PO SCH (20:31)
[2018-05-19] MEDS: MethylPREDNISolone 40 MG/ML VIAL IVP SCH ×3 (00:12→13:25)
[2018-05-19] MEDS: Piperacillin/Tazobactam 3.375 GM in 0.9 % Sodium Chloride Mini Bag 100 ML IVPB SCH ×4 (00:12→23:56)
[2018-05-19] MEDS: Insulin LISPRO 300 UNITS/3 ML VIAL SQ SCH ×7 (00:20→23:48)
[2018-05-19 01:43] LABS: Hepatitis A Antibody IgM Nonreactive (Nonreactive); Hepatitis B Core IgM Nonreactive (Nonreactive)
[2018-05-19 01:50] LABS: Hepatitis C Virus Antibody Reactive (Nonreactive)
[2018-05-19] MEDS: Ipratropium/Albuterol Neb 3 ML IH SCH ×4 (03:50→23:22)
[2018-05-19 04:58] LABS: ABG Base Excess -4 mEq/L (-2 to 3); ABG HCO3 21 mEq/L (21-27); ABG Oxygen Saturation 91 % (95-98); ABG PCO2 34 mmHg (35-45); ABG PH 7.39 pH Units (7.32-7.45); ABG PO2 60 mmHg (85-104); ABG TCO2 22 mEq/L (20-26); Blood Gas PEEP 5 cm H2O; Blood Gas Respiration Rate 16; Blood Gas VT 500 cc
[2018-05-19 05:18] LABS: Immature Granulocytes % 0.5 % (0-4)
[2018-05-19 05:20] LABS: Basophils % 0.1 %; Hematocrit 24.8 % (37.5-50.1); Hemoglobin 8.7 g/dL (12.9-16.9); Immature Platelets 6.7 % (1.1-6.1); Lymphocytes # 1.1 K/mcL (0.6-4.6); Lymphocytes % 5.2 %; Mean Corpuscular HGB Conc 35.1 g/dL (31.6-35.5); Mean Corpuscular Hemoglobin 31.6 pg (28.0-33.3); Mean Corpuscular Volume 90.2 fL (83.0-100.0); Mean Platelet Volume 11.6 fL (9.4-12.4); Monocytes # 1.2 K/mcL (0.0-1.3); Monocytes % 5.6 %; Red Blood Count 2.75 M/mcL (4.19-5.50); Red Cell Distribution Width 15.4 % (11.5-14.5); Segmented Neutrophils % 88.6 %
[2018-05-19 05:37] LABS: Platelet Count 65 K/mcL (140-400)
[2018-05-19 05:54] LABS: BUN/Creatinine Ratio 13 (6-26); Blood Urea Nitrogen 19 mg/dL (8-23); Calcium 8.2 mg/dL (8.6-10.3); Carbon Dioxide 20 mEq/L (23-29); Chloride 112 mEq/L (98-107); Glucose 128 mg/dL (70-105); Osmolality,Calculated 294 (280-300); Potassium 4.6 mEq/L (3.5-5.1); Sodium 140 mEq/L (136-145); eGFR For Non-African Americans 47 (> 60)
[2018-05-19] MEDS: Pantoprazole 40 MG VIAL IVP SCH (06:05)
[2018-05-19] MEDS: *HR* Heparin 5,000 UNIT/ML VIAL SQ SCH ×2 (06:05→18:27)
[2018-05-19 06:29] LABS: Magnesium 1.8 mg/dL (1.6-2.6)
[2018-05-19] MEDS: Norepinephrine 8 MG in D5% in Water 500 ML IVC SCH ×2 (07:44→23:57)
[2018-05-19] MEDS: Lacri-Lube 3.5 GM TUBE BOTH EYES SCH ×8 (07:44→23:58)
--- NOTE | 2018-05-19 08:49 | Pulmonology Consult Note ---
Date of Encounter: 05/19/18 Time of Encounter: 10:00 Assessment and Plan (1) Septic shock Current Visit: Yes Status: Acute (2) Acute respiratory failure with hypoxia Current Visit: Yes Status: Acute (3) CKD (chronic kidney disease) Current Visit: Yes Status: Acute (4) GENE (acute kidney injury) Current Visit: Yes Status: Acute (5) Anemia Current Visit: Yes Status: Acute (6) HAP (hospital-acquired pneumonia) Current Visit: Yes Status: Acute (7) Pleural effusion Current Visit: Yes Status: Acute (8) DVT prophylaxis Current Visit: No Status: Acute History of Present Illness History of present illness: no acute events over night. His mean arterial pressure was about 65% and is off the pressors. Patient is currently hemodynamically stable. His white blood count continues to be elevated (17.6 > 21.4) . Patient's hemoglobin was 9.4 yesterday status post transfusion but dropped down to 8.7 today. He underwent thoracentesis and the specimen has been sent to the lab for further analysis. Patient tolerated the procedure very well. On physical exam patient denies any shortness of breath, chest pain, palpitations. Past Med Surg Social Fam HX - Past Medical History Medical history: hypertension Psychiatric history: anxiety, bipolar, depression - Past Surgical History Surgical History: no surgical history - Social History Smoking Status: Heavy tobacco smoker Smokeless Tobacco Status: No Alcohol use: none Drug use: none - Family History Father Family Member Ethnicity: Non- Living Status: Mother Adopted: No Family Member Ethnicity: Non- Living Status: Still Living Hx Family Cardiac Disorders: Yes (Unknown) Hx Family Respiratory Disorders: No Hx Family Cancer: Yes (Aunt) Hx Family GI Disorders: No Hx Family Endocrine Disorder: No Hx Family Neuromuscular Disorders: No Hx Family Neurologic Disorders: No Hx Family HEENT Disorders: No Hx Family Autoimmune Disorders: No Medications and Allergies OLANZapine [Zyprexa] 30 mg PO HS 10/29/15 [History] Trihexyphenidyl [Artane] 2 mg PO BID 10/29/15 [History] Fluphenazine [Prolixin] 2.5 mg PO BID #8 tablet 05/03/17 [Rx] Trazodone HCl 300 mg PO HS 05/17/18 [History] diazePAM [Valium] 10 mg PO TID PRN 05/17/18 [History] hydrOXYzine pamoate [HydrOXYzine Pamoate] 25 mg PO BID 05/17/18 [History] 3 Allergy/AdvReac Type Severity Reaction Status Date / Time No Known Allergies Allergy Verified 05/17/18 18:27 All Systems: The remainder of the systems were reviewed and are negative Physical Examination Vital Signs: Vital Signs, Last 4 Hours Temp Pulse Resp BP Pulse Ox 05/19/18 08:00 98 24 103/90 90 05/19/18 07:55 90 05/19/18 07:36 97.7 F 05/19/18 07:35 18 96 05/19/18 07:33 20 88/58 91 05/19/18 07:00 108 28 122/44 93 05/19/18 06:00 98 25 105/60 97 05/19/18 05:58 24 91/61 99 05/19/18 05:50 19 91/61 96 05/19/18 05:00 72 18 91/61 91 Ventilator Settings Ventilator Settings: Ventilator Settings, Last 8 Hours Ventilator Tidal Volume 500 Setting Ventilator Tidal Volume 500 Setting Ventilator Tidal Volume 500 Setting Ventilator Tidal Volume 500 Setting Ventilator Tidal Volume 500 Setting Ventilator Tidal Volume 500 Setting Ventilator Respiratory Rate 16 Setting Ventilator Respiratory Rate 16 Setting Ventilator Respiratory Rate 16 Setting Ventilator Respiratory Rate 16 Setting Ventilator Respiratory Rate 15 Setting Ventilator Respiratory Rate 16 Setting Ventilator Respiratory Rate 16 Setting Actual Respiratory Rate 18 Actual Respiratory Rate 25 Actual Respiratory Rate 21 Actual Respiratory Rate 20 Actual Respiratory Rate 20 Actual Respiratory Rate 24 Actual Respiratory Rate 17 Positive End Expiratory 5 Pressure Positive End Expiratory 5 Pressure Positive End Expiratory 5 Pressure Positive End Expiratory 5 Pressure Positive End Expiratory 5 Pressure Positive End Expiratory 5 Pressure Positive End Expiratory 5 Pressure Positive End Expiratory 5 Pressure Peak Inspiratory Airway 19 Pressure Peak Inspiratory Airway 13 Pressure Peak Inspiratory Airway 13 Pressure Peak Inspiratory Airway 15 Pressure Peak Inspiratory Airway 15 Pressure Peak Inspiratory Airway 18 Pressure Results - Laboratory Findings CBC and BMP: 05/19/18 04:59 05/19/18 04:59 ABG ABG pH 7.39 pH Units (7.32-7.45) 05/19/18 04:52 ABG pCO2 34 mmHg (35-45) L 05/19/18 04:52 ABG pO2 60 mmHg (85-104) L 05/19/18 04:52 ABG O2 Saturation 91 % (95-98) L 05/19/18 04:52 PT/INR, D-dimer PT 14.3 Seconds (9.4-12.1) H 05/17/18 15:57 Abnormal lab findings: Abnormal lab results WBC 21.4 K/mcL (4.3-11.1) H 05/19/18 04:59 RBC 2.75 M/mcL (4.19-5.50) L 05/19/18 04:59 Hgb 8.7 g/dL (12.9-16.9) L 05/19/18 04:59 Hct 24.8 % (37.5-50.1) L 05/19/18 04:59 RDW 15.4 % (11.5-14.5) H 05/19/18 04:59 Plt Count 65 K/mcL (140-400) L 05/19/18 04:59 Neutrophils # 19.0 K/mcL (1.6-8.9) H 05/19/18 04:59 Platelet Estimate Decreased (Normal) L 05/18/18 04:00 Immature Plt Fraction 6.7 % (1.1-6.1) H 05/19/18 04:59 PT 14.3 Seconds (9.4-12.1) H 05/17/18 15:57 ABG pCO2 34 mmHg (35-45) L 05/19/18 04:52 ABG pO2 60 mmHg (85-104) L 05/19/18 04:52 ABG O2 Saturation 91 % (95-98) L 05/19/18 04:52 ABG Base Excess -4 mEq/L (-2 to 3) L 05/19/18 04:52 Chloride 112 mEq/L (98-107) H 05/19/18 04:59 Carbon Dioxide 20 mEq/L (23-29) L 05/19/18 04:59 Creatinine 1.52 mg/dL (0.70-1.30) H 05/19/18 04:59 Est GFR ( Amer) 56 (> 60) L 05/19/18 04:59 Est GFR (Non-Af Amer) 47 (> 60) L 05/19/18 04:59 Glucose 128 mg/dL (70-105) H 05/19/18 04:59 POC Glucose 142 mg/dL (70-99) H 05/19/18 00:18 Lactic Acid 3.5 mmol/L (0.5-2.2) H 05/19/18 04:59 Calcium 8.2 mg/dL (8.6-10.3) L 05/19/18 04:59 AST 40 Units/L (13-39) H 05/18/18 04:00 Creatine Kinase 588 Units/L (30-223) H 05/17/18 15:57 Serum Total Protein 4.8 g/dL (6.4-8.9) L 05/18/18 04:00 Albumin 2.6 g/dL (3.5-5.7) L 05/18/18 04:00 Globulin 2.2 g/dL (2.4-3.5) L 05/18/18 04:00 Urine Clarity Cloudy (Clear) A 05/17/18 18:15 Urine Microscopic WBC 3-5 per hpf (0-3) H 05/17/18 18:15 Ur Squamous Epith Cells Many per lpf (None-Few) H 05/17/18 18:15 Salicylates < 2.5 mg/dL (15.0-30.0) L 05/17/18 21:46 Acetaminophen < 10 mcg/mL (10-20) L 05/17/18 21:46 U Benzodiazepines Scrn Positive ng/mL (Kurycn=953) H 05/17/18 21:45 Hepatitis C Ab Screen Reactive (Nonreactive) H 05/17/18 23:20 - Microbiology Findings Microbiology Findings: Microbiology, Last 48 Hours 05/18/18 12:29 Sputum Culture - Preliminary Sputum 05/17/18 22:16 Blood Culture - Preliminary Central Venous Catheter Culture is incubating and being continuously monitored for growth. Final report to follow. - Clinical Findings Intake & Output: Intake & Output 05/18/18 05/19/18 05/19/18 23:59 07:59 15:59 Intake Total 600 / 600 Output Total 200 / 200 400 / 400 Balance 400 / 400 -379 / -379 Weight 93 kg Consult Discharge Plan - Plan Referrals: NONE,PCP [Primary Care Provider] -
[2018-05-19] MEDS: Chlorhexidine Rinse 15 ML MOUTHWASH MM SCH (09:50)
[2018-05-19] MEDS: Nicotine 21 MG PATCH.TD24 TD SCH (10:04)
--- NOTE | 2018-05-19 11:39 | Procedure Note ---
<AngélicadeepthiJuan becerra M - Last Filed: 05/19/18 15:59> Procedure: I examined this patient and my medical decision-making was reviewed with the Resident Physician. I agree with the documented findings, disposition and treatment plan as described except to the extent set forth below. I have personally supervised residents performing thoracentesis without immediate complications <Santosh Hairston - Last Filed: 05/19/18 20:32> Date of procedure: 05/19/18 Pre-op diagnosis: pleural effusion Post-op diagnosis: other (hemothorax) Procedure: Written consent was obtained from the patient. Area of pleural effusion was identified by ultrasound and site was marked. Area over left back was prepped and draped in normal sterile technique, and anesthetized using 6-10 cc of lidocaine. A 20 guage needle/catheter was advanced into the pleural space and olga fluid was seen in the syringe. Approximately __60__cc of ___pleural____ fluid was drained. Pt tolerated the procedure well, EBL was none. Catherter was removed intact. Post-procedure chest xray is negative for any pneumothorax. Specimen was sent to lab. Anesthesia: local Surgeon: Santosh Hairston (Resident ) Was there an geriatric nursing assistant present: Yes Kettle Coordinator: Serg Gu Estimated blood loss (cc): 2 Specimen: plueral fluid Pathology: other (sent for LDH, protein) Condition: stable Disposition: ICU
[2018-05-19 12:46] LABS: RBC,Pleural Fluid 3.192 M/mcL
[2018-05-19 14:23] LABS: Lactate Dehydrogenase 158 Units/L (140-271); Total Protein 4.8 g/dL (6.4-8.9)
[2018-05-19] MEDS: diazePAM 5 MG TABLET PO SCH ×2 (14:37→20:15)
[2018-05-19] MEDS: Levofloxacin 750 MG/150 ML 750 MG/150 ML BAG IVPB SCH (15:31)
[2018-05-19] MEDS ORDERED: Levofloxacin 750 MG/150 ML 750 MG/150 ML BAG IVPB SCH (16:00)
--- NOTE | 2018-05-19 16:04 | Pulmonology Progress Note ---
<Santosh Hairston - Last Filed: 05/19/18 20:28> Date of Encounter: 05/19/18 Time of Encounter: 10:00 Assessment and Plan (1) Septic shock Current Visit: Yes Status: Resolved - patient had elevated lactate on admission (6.7), tachyardiac, and hypotensive refractory to IV boluses. - likely due to his PNA , and Left large pleural effusion - currently on the Vanc/Zosyn/Levafloxacin - currently resolved - continue to monitor the hemodynamic status, trend lactate q6h (2) Acute respiratory failure with hypoxia Current Visit: Yes Status: Acute -likely due to his LLL pneumonia and pleural effusion - patient has a Hx of COPD, currently unsure if he is on any medication - We have discontinued the patient's vancomycin because his MRSA surveillance was negative .patient is currently on day 2 Zosy and Levofloxacin. - He is s/p thoracentesis today- tolerated the procedure very well (3) CKD (chronic kidney disease) Current Visit: Yes Status: Acute patient has a Hx of CKD stage 3, he is at a risk factor for worsening kidney function because of age and ethnicity (-kittitian) - his GFR was 38 when he was admitted but currently it is trending back to his baseline (~50) -avoid all nephrotoxic agents, we will continue to monitor patient's hemodynamic status Qualifiers: Qualified Code(s): N18.3 - Chronic kidney disease, stage 3 (moderate) (4) GENE (acute kidney injury) Current Visit: Yes Status: Acute - Patient Cr was 2.13 on admission, currently it is trending low 1.68-> 1.6-> 1.52 - This could be secondary to his septic shock, and Hx of CKD state 3. - Patient to septic shock has resolved. We are hoping that his creatinine function is going to get better with time. - continue monitoring patient's kidney function, (5) Anemia Current Visit: Yes Status: Acute - patient's Hb has been fluctuating recently : 10.9 ->6.7 -> 9.4-> 8.7 - He is s/p 2 units of pRBCs yesteray, - abdominal CT was negative for any bleeding, head CT was negative for any hemorrhage - Stool Guaiac test was negative - s/p thoracentesis showed some blood mixed with purulent fluid- pathologic analysis pending - We will continue monitoring his H&H. Qualifiers: Qualified Code(s): D64.9 - Anemia, unspecified (6) HAP (hospital-acquired pneumonia) Current Visit: Yes Status: Acute - Patient was admitted because of inability to protect his airway seconday to septic shock - Patient's chest x-ray was positive for consolidative opacity in the apical left upper lobe - Patient is currently on day 2 vancomycin, Zosyn and levofloxacin. We have discontinued his vancomycin because patient's MRSA surveillance was negative. - Serology work up was negative for RSV , Influenza A and B, HIV, and Hep B. - Currently patient has been extubated. He endorses no shortness of breath, chest pain and is A&O 3. - We are going to continue monitoring his hemodynamic status. (7) Pleural effusion Current Visit: Yes Status: Acute - Patient's CT was positive for Large left pleural effusion, resulting in mediastinal shift to the right. - Effusion could be likely secondary to his pneumonia - Patient is s/p thoracentesis. Pathologic analysis revealed it is an Exudate ( Pleural LDH/Serum LDH > 0.5) - patient is stable s/p thoracentesis (8) DVT prophylaxis Current Visit: No Status: Acute - Is on subcutaneous heparin. Subjective Principal diagnosis: Acute hypoxic respiraory failure Interval history: No acute events today. Patient is status post thoracentesis. She tolerated the procedure very well. Currently he is at day one s/p extubation and breathing with oxygen mask at at 10 LBM. Patient is very stable after thoracentesis. He denies shortness of any new cough onset, breath, chest pain, palpitation. Patient white blood count continues to be elevated. His hemoglobin was 9.4 yesterday but dropped to 8.7 today. On day 2 of his antibiotics vancomycin, Zosyn, Levaquin. His MRSA swab was negative and therefore we discontinued his vancomycin. We have started the patient back on his home medications but have decreased his home Valium to 5 mg. Objective PUL Vital signs: Last Vital Signs Temp 97.3 F L 05/19/18 11:32 Pulse 99 05/19/18 15:36 Resp 23 05/19/18 15:00 BP 107/67 05/19/18 15:00 Pulse Ox 90 05/19/18 15:00 General appearance: no acute distress (non agitated, good menrato) Auscultation: bilateral: clear Percussion: bilateral: not dull Cardiovascular: regular rate and rhythm (no gallops,murmurs or rubs) Gastrointestinal: soft, non-tender, non-distended Extremities: no cyanosis, no edema, no clubbing mood appropriate, affect normal Results - Laboratory Findings CBC and BMP: 05/19/18 04:59 05/19/18 04:59 ABG ABG pH 7.39 pH Units (7.32-7.45) 05/19/18 04:52 ABG pCO2 34 mmHg (35-45) L 05/19/18 04:52 ABG pO2 60 mmHg (85-104) L 05/19/18 04:52 ABG O2 Saturation 91 % (95-98) L 05/19/18 04:52 PT/INR, D-dimer PT 14.3 Seconds (9.4-12.1) H 05/17/18 15:57 Abnormal lab findings: Abnormal lab results WBC 21.4 K/mcL (4.3-11.1) H 05/19/18 04:59 RBC 2.75 M/mcL (4.19-5.50) L 05/19/18 04:59 Hgb 8.7 g/dL (12.9-16.9) L 05/19/18 04:59 Hct 24.8 % (37.5-50.1) L 05/19/18 04:59 RDW 15.4 % (11.5-14.5) H 05/19/18 04:59 Plt Count 65 K/mcL (140-400) L 05/19/18 04:59 Neutrophils # 19.0 K/mcL (1.6-8.9) H 05/19/18 04:59 Platelet Estimate Decreased (Normal) L 05/18/18 04:00 Immature Plt Fraction 6.7 % (1.1-6.1) H 05/19/18 04:59 PT 14.3 Seconds (9.4-12.1) H 05/17/18 15:57 ABG pCO2 34 mmHg (35-45) L 05/19/18 04:52 ABG pO2 60 mmHg (85-104) L 05/19/18 04:52 ABG O2 Saturation 91 % (95-98) L 05/19/18 04:52 ABG Base Excess -4 mEq/L (-2 to 3) L 05/19/18 04:52 Chloride 112 mEq/L (98-107) H 05/19/18 04:59 Carbon Dioxide 20 mEq/L (23-29) L 05/19/18 04:59 Creatinine 1.52 mg/dL (0.70-1.30) H 05/19/18 04:59 Est GFR ( Amer) 56 (> 60) L 05/19/18 04:59 Est GFR (Non-Af Amer) 47 (> 60) L 05/19/18 04:59 Glucose 128 mg/dL (70-105) H 05/19/18 04:59 POC Glucose 142 mg/dL (70-99) H 05/19/18 00:18 Lactic Acid 3.5 mmol/L (0.5-2.2) H 05/19/18 04:59 Calcium 8.2 mg/dL (8.6-10.3) L 05/19/18 04:59 AST 40 Units/L (13-39) H 05/18/18 04:00 Creatine Kinase 588 Units/L (30-223) H 05/17/18 15:57 Serum Total Protein 4.8 g/dL (6.4-8.9) L 05/19/18 04:59 Albumin 2.6 g/dL (3.5-5.7) L 05/18/18 04:00 Globulin 2.2 g/dL (2.4-3.5) L 05/18/18 04:00 Urine Clarity Cloudy (Clear) A 05/17/18 18:15 Urine Microscopic WBC 3-5 per hpf (0-3) H 05/17/18 18:15 Ur Squamous Epith Cells Many per lpf (None-Few) H 05/17/18 18:15 Pleural RBC 3.192 M/mcL (0.000-0.002) H 05/19/18 11:00 Pleural Tot Nuc Cell 4571 TNC/mcL (0-1000) H 05/19/18 11:00 Salicylates < 2.5 mg/dL (15.0-30.0) L 05/17/18 21:46 Acetaminophen < 10 mcg/mL (10-20) L 05/17/18 21:46 U Benzodiazepines Scrn Positive ng/mL (Jmnxmf=926) H 05/17/18 21:45 Hepatitis C Ab Screen Reactive (Nonreactive) H 05/17/18 23:20 - Microbiology Findings Microbiology Findings: Microbiology, Last 48 Hours 05/19/18 11:00 Gram Stain - Final Pleural Fluid 05/18/18 12:29 Sputum Culture - Preliminary Sputum 05/17/18 22:16 Blood Culture - Preliminary Central Venous Catheter Culture is incubating and being continuously monitored for growth. Final report to follow. - Clinical Findings Intake & Output: Intake & Output 05/19/18 05/19/18 05/19/18 07:59 15:59 23:59 Intake Total 121 / 121 600 / 600 Output Total 400 / 400 700 / 700 Balance -279 / -279 -100 / -100 Weight 93 kg - VTE Documentation of Mechanical Device: Intermittent pneumatic compression device Consult Discharge Plan - Plan Referrals: NONE,PCP [Primary Care Provider] - <Juan Wilson - Last Filed: 05/20/18 08:42> Date of Encounter: 05/19/18 Objective PUL Vital signs: Last Vital Signs Temp 97.4 F L 05/20/18 07:36 Pulse 88 05/20/18 06:00 Resp 16 05/20/18 06:00 BP 100/54 05/20/18 06:00 Pulse Ox 91 05/20/18 06:00 Results - Laboratory Findings CBC and BMP: 05/20/18 04:04 05/20/18 04:04 ABG ABG pH 7.39 pH Units (7.32-7.45) 05/19/18 04:52 ABG pCO2 34 mmHg (35-45) L 05/19/18 04:52 ABG pO2 60 mmHg (85-104) L 05/19/18 04:52 ABG O2 Saturation 91 % (95-98) L 05/19/18 04:52 PT/INR, D-dimer PT 14.3 Seconds (9.4-12.1) H 05/17/18 15:57 Abnormal lab findings: Abnormal lab results WBC 20.7 K/mcL (4.3-11.1) H 05/20/18 04:04 RBC 2.68 M/mcL (4.19-5.50) L 05/20/18 04:04 Hgb 8.5 g/dL (12.9-16.9) L 05/20/18 04:04 Hct 24.5 % (37.5-50.1) L 05/20/18 04:04 RDW 15.6 % (11.5-14.5) H 05/20/18 04:04 Plt Count 76 K/mcL (140-400) L 05/20/18 04:04 Neutrophils # 16.3 K/mcL (1.6-8.9) H 05/20/18 04:04 Monocytes # 2.1 K/mcL (0.0-1.3) H 05/20/18 04:04 Platelet Estimate Decreased (Normal) L 05/18/18 04:00 Immature Plt Fraction 6.3 % (1.1-6.1) H 05/20/18 04:04 PT 14.3 Seconds (9.4-12.1) H 05/17/18 15:57 ABG pCO2 34 mmHg (35-45) L 05/19/18 04:52 ABG pO2 60 mmHg (85-104) L 05/19/18 04:52 ABG O2 Saturation 91 % (95-98) L 05/19/18 04:52 ABG Base Excess -4 mEq/L (-2 to 3) L 05/19/18 04:52 Chloride 110 mEq/L (98-107) H 05/20/18 04:04 Est GFR (Non-Af Amer) 56 (> 60) L 05/20/18 04:04 Glucose 122 mg/dL (70-105) H 05/20/18 04:04 POC Glucose 125 mg/dL (70-99) H 05/19/18 23:47 Lactic Acid 3.5 mmol/L (0.5-2.2) H 05/19/18 04:59 Creatine Kinase 588 Units/L (30-223) H 05/17/18 15:57 Serum Total Protein 5.3 g/dL (6.4-8.9) L 05/20/18 04:04 Albumin 3.0 g/dL (3.5-5.7) L 05/20/18 04:04 Globulin 2.3 g/dL (2.4-3.5) L 05/20/18 04:04 Urine Clarity Cloudy (Clear) A 05/17/18 18:15 Urine Microscopic WBC 3-5 per hpf (0-3) H 05/17/18 18:15 Ur Squamous Epith Cells Many per lpf (None-Few) H 05/17/18 18:15 Pleural Appearance Bloody (Clear) A 05/19/18 11:00 Pleural RBC 3.192 M/mcL (0.000-0.002) H 05/19/18 11:00 Pleural Tot Nuc Cell 4571 TNC/mcL (0-1000) H 05/19/18 11:00 Salicylates < 2.5 mg/dL (15.0-30.0) L 05/17/18 21:46 Acetaminophen < 10 mcg/mL (10-20) L 05/17/18 21:46 U Benzodiazepines Scrn Positive ng/mL (Qksqna=987) H 05/17/18 21:45 Hepatitis C Ab Screen Reactive (Nonreactive) H 05/17/18 23:20 - Microbiology Findings Microbiology Findings: Microbiology, Last 48 Hours 05/19/18 11:00 Gram Stain - Final Pleural Fluid 05/18/18 12:29 Sputum Culture - Preliminary Sputum - Clinical Findings Intake & Output: Intake & Output 05/19/18 05/20/18 05/20/18 23:59 07:59 15:59 Intake Total 100 / 100 100 / 100 Output Total 300 / 300 5 / 207 Balance -200 / -200 -1974 / -1974 - Attending Attestation This note was done on 05/20/2018, but patient was examined and the case was discussed in the multidisciplinary around noon was discussed with the resident. I examined this patient and my medical decision-making was reviewed with the Resident Physician. I agree with the documented findings, disposition and treatment plan as described except to the extent set forth below. Patient seen and examined. Labs, radiology, chart personally reviewed. 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 Patient was extubated successfully and diagnostic and therapeutic thoracentesis was done with evidence of a pneumothorax. Cardiovascular: stable GI: Nutrition per dietary and GI prophylaxis per routine Heme: DVT prophylaxis per routine ID: Continue antibiotics and plan to de-escalation Renal; urine out put and renal funtion reviewed Endorcine: blood glucose is monitored Lines: all lines checked and no evidence of infections Skin: skin care to prevent pressure ulcers per nursing routine care
[2018-05-19 16:06] LABS: Appearance of Pleural Fl Bloody (Clear)
[2018-05-19] MEDS: OLANZapine 10 MG TAB.RAPDIS PO SCH (20:15)
--- NOTE | 2018-05-19 20:31 | Electrocardiograph Report ---
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
--- NOTE | 2018-05-19 21:07 | Electrocardiograph Report ---
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
[2018-05-20 04:31] LABS: Hemoglobin 8.5 g/dL (12.9-16.9)
[2018-05-20 04:33] LABS: Hematocrit 24.5 % (37.5-50.1); Immature Granulocytes % 0.8 % (0-4); Immature Platelets 6.3 % (1.1-6.1); Lymphocytes # 2.1 K/mcL (0.6-4.6); Lymphocytes % 10.2 %; Mean Corpuscular HGB Conc 34.7 g/dL (31.6-35.5); Mean Corpuscular Hemoglobin 31.7 pg (28.0-33.3); Mean Corpuscular Volume 91.4 fL (83.0-100.0); Mean Platelet Volume 11.2 fL (9.4-12.4); Monocytes # 2.1 K/mcL (0.0-1.3); Monocytes % 10.2 %; Neutrophils # 16.3 K/mcL (1.6-8.9); Platelet Count 76 K/mcL (140-400); Red Blood Count 2.68 M/mcL (4.19-5.50); Red Cell Distribution Width 15.6 % (11.5-14.5); Segmented Neutrophils % 78.8 %
[2018-05-20] MEDS: Ipratropium/Albuterol Neb 3 ML IH SCH ×4 (04:46→22:33)
[2018-05-20 04:49] LABS: Alanine Aminotransferase 36 Units/L (7-52); Albumin/Globulin Ratio 1.3 (1.1-2.2); Alkaline Phosphatase 56 Units/L (34-104); Aspartate Amino Transferase 34 Units/L (13-39); BUN/Creatinine Ratio 15 (6-26); Bilirubin,Total 0.7 mg/dL (0.3-1.0); Blood Urea Nitrogen 19 mg/dL (8-23); Calcium 8.6 mg/dL (8.6-10.3); Carbon Dioxide 24 mEq/L (23-29); Chloride 110 mEq/L (98-107); Globulin 2.3 g/dL (2.4-3.5); Glucose 122 mg/dL (70-105); Osmolality,Calculated 294 (280-300); Potassium 4.1 mEq/L (3.5-5.1); Sodium 140 mEq/L (136-145); Total Protein 5.3 g/dL (6.4-8.9); eGFR For Non-African Americans 56 (> 60)
[2018-05-20] MEDS: Insulin LISPRO 300 UNITS/3 ML VIAL SQ SCH ×4 (05:04→17:23)
[2018-05-20] MEDS: *HR* Heparin 5,000 UNIT/ML VIAL SQ SCH ×2 (05:55→17:20)
--- NOTE | 2018-05-20 08:14 | Pulmonology Progress Note ---
<Santosh Hairston - Last Filed: 05/20/18 16:19> Date of Encounter: 05/20/18 Time of Encounter: 08:00 Assessment and Plan (1) Septic shock Current Visit: Yes Status: Resolved - currently resolved . patient transferred to the floor -patient had elevated lactate on admission (6.7), tachyardiac, and hypotensive refractory to IV boluses. - likely due to his PNA , and Left large pleural effusion - currently on the Zosyn only (Dc'ed Levaflox and Vanc) - continue to monitor the hemodynamic status (2) Acute respiratory failure with hypoxia Current Visit: Yes Status: Resolved -Likely due to his LLL pneumonia and pleural effusion - patient has a Hx of COPD, currently unsure if he is on any medication - We have discontinued the patient's vancomycin because his MRSA surveillance was negative . Discontinued his Levofloxacin. Patient is currently on day 3 of Zosy. - He is s/p thoracentesis - tolerated the procedure very well (3) CKD (chronic kidney disease) Current Visit: Yes Status: Acute patient has a Hx of CKD stage 3, he is at a risk factor for worsening kidney function because of age and ethnicity (-cambodian) - his GFR was 38 when he was admitted but currently it is trending back to his baseline (~50-60) -avoid all nephrotoxic agents, we will continue to monitor patient's hemodynamic status (4) GENE (acute kidney injury) Current Visit: Yes Status: Acute - Patient Cr was 2.13 on admission, currently it is trending low 1.68-> 1.6-> 1.52-> 1.30 - This could be secondary to his septic shock, and Hx of CKD state 3. - Patient's septic shock has resolved. - continue monitoring patient's kidney function, (5) Anemia Current Visit: Yes Status: Acute - patient's Hb has been fluctuating recently : 10.9 ->6.7 -> 9.4-> 8.7->8.5 - He is s/p 2 units of pRBCs two days ago - abdominal CT was negative for any bleeding, head CT was negative for any hemorrhage - Stool Guaiac test was negative - s/p thoracentesis showed some blood mixed with purulent fluid- pathologic analysis showed Exudate fluid. (6) HAP (hospital-acquired pneumonia) Current Visit: Yes Status: Acute - Patient was admitted because of inability to protect his airway seconday to septic shock - Patient's chest x-ray was positive for consolidative opacity in the apical left upper lobe - Patient is currently on day 3 of Zosyn. We have discontinued his vancomycin and levaloxacin. - Serology work up was negative for RSV , Influenza A and B, HIV, and Hep B. - Currently patient is day 2 post extubated. He endorses no shortness of breath , chest pain and is A&O 3. - We are going to continue monitoring his hemodynamic status. (7) Pleural effusion Current Visit: Yes Status: Acute - Patient's CT was positive for Large left pleural effusion, resulting in mediastinal shift to the right. - Effusion could be likely secondary to his pneumonia - Patient is s/p thoracentesis. Pathologic analysis revealed it is an Exudate ( Pleural LDH/Serum LDH > 0.5) - Repeat chest CT showed a Large left pleural effusion and adjacent airspace disease. (8) DVT prophylaxis Current Visit: No Status: Acute - Is on subcutaneous heparin. Subjective Principal diagnosis: Acute hypoxic respiraory failure Interval history: No acute events today. Patient is status post thoracentesis. He tolerated the procedure very well. Currently he is at day one s/p extubation and breathing with oxygen mask at at 10 LBM. Patient is very stable after thoracentesis. He denies shortness of any new cough onset, breath, chest pain, palpitation. Patient white blood count continues to be elevated. His hemoglobin was 9.4 yesterday but dropped to 8.7 today. On day 2 of his antibiotics vancomycin, Zosyn, Levaquin. His MRSA swab was negative and therefore we discontinued his Vancomycin. We have started the patient back on his home medications but have decreased his home Valium to 5 mg. Objective PUL Vital signs: Last Vital Signs Temp 97.4 F L 05/20/18 07:36 Pulse 88 05/20/18 06:00 Resp 16 05/20/18 06:00 BP 100/54 05/20/18 06:00 Pulse Ox 91 05/20/18 06:00 General appearance: no acute distress, alert Effort: normal Auscultation: bilateral: clear Percussion: bilateral: not dull Cardiovascular: regular rate and rhythm (no galops , murmurs or rubs) Gastrointestinal: soft, non-tender, non-distended Extremities: no cyanosis, no edema, no clubbing Results - Laboratory Findings CBC and BMP: 05/20/18 04:04 05/20/18 04:04 ABG ABG pH 7.39 pH Units (7.32-7.45) 05/19/18 04:52 ABG pCO2 34 mmHg (35-45) L 05/19/18 04:52 ABG pO2 60 mmHg (85-104) L 05/19/18 04:52 ABG O2 Saturation 91 % (95-98) L 05/19/18 04:52 PT/INR, D-dimer PT 14.3 Seconds (9.4-12.1) H 05/17/18 15:57 Abnormal lab findings: Abnormal lab results WBC 20.7 K/mcL (4.3-11.1) H 05/20/18 04:04 RBC 2.68 M/mcL (4.19-5.50) L 05/20/18 04:04 Hgb 8.5 g/dL (12.9-16.9) L 05/20/18 04:04 Hct 24.5 % (37.5-50.1) L 05/20/18 04:04 RDW 15.6 % (11.5-14.5) H 05/20/18 04:04 Plt Count 76 K/mcL (140-400) L 05/20/18 04:04 Neutrophils # 16.3 K/mcL (1.6-8.9) H 05/20/18 04:04 Monocytes # 2.1 K/mcL (0.0-1.3) H 05/20/18 04:04 Platelet Estimate Decreased (Normal) L 05/18/18 04:00 Immature Plt Fraction 6.3 % (1.1-6.1) H 05/20/18 04:04 PT 14.3 Seconds (9.4-12.1) H 05/17/18 15:57 ABG pCO2 34 mmHg (35-45) L 05/19/18 04:52 ABG pO2 60 mmHg (85-104) L 05/19/18 04:52 ABG O2 Saturation 91 % (95-98) L 05/19/18 04:52 ABG Base Excess -4 mEq/L (-2 to 3) L 05/19/18 04:52 Chloride 110 mEq/L (98-107) H 05/20/18 04:04 Est GFR (Non-Af Amer) 56 (> 60) L 05/20/18 04:04 Glucose 122 mg/dL (70-105) H 05/20/18 04:04 POC Glucose 125 mg/dL (70-99) H 05/19/18 23:47 Lactic Acid 3.5 mmol/L (0.5-2.2) H 05/19/18 04:59 Creatine Kinase 588 Units/L (30-223) H 05/17/18 15:57 Serum Total Protein 5.3 g/dL (6.4-8.9) L 05/20/18 04:04 Albumin 3.0 g/dL (3.5-5.7) L 05/20/18 04:04 Globulin 2.3 g/dL (2.4-3.5) L 05/20/18 04:04 Urine Clarity Cloudy (Clear) A 05/17/18 18:15 Urine Microscopic WBC 3-5 per hpf (0-3) H 05/17/18 18:15 Ur Squamous Epith Cells Many per lpf (None-Few) H 05/17/18 18:15 Pleural Appearance Bloody (Clear) A 05/19/18 11:00 Pleural RBC 3.192 M/mcL (0.000-0.002) H 05/19/18 11:00 Pleural Tot Nuc Cell 4571 TNC/mcL (0-1000) H 05/19/18 11:00 Salicylates < 2.5 mg/dL (15.0-30.0) L 05/17/18 21:46 Acetaminophen < 10 mcg/mL (10-20) L 05/17/18 21:46 U Benzodiazepines Scrn Positive ng/mL (Hauttc=332) H 05/17/18 21:45 Hepatitis C Ab Screen Reactive (Nonreactive) H 05/17/18 23:20 - Microbiology Findings Microbiology Findings: Microbiology, Last 48 Hours 05/19/18 11:00 Gram Stain - Final Pleural Fluid 05/18/18 12:29 Sputum Culture - Preliminary Sputum - Clinical Findings Intake & Output: Intake & Output 05/19/18 05/20/18 05/20/18 23:59 07:59 15:59 Intake Total 100 / 100 100 / 100 Output Total 300 / 300 2074 Balance -200 / -200 -1974 / - VTE Documentation of Mechanical Device: Intermittent pneumatic compression device Consult Discharge Plan - Plan Referrals: NONE,PCP [Primary Care Provider] - <Juan Wilson M - Last Filed: 05/20/18 16:23> Date of Encounter: 05/20/18 Objective PUL Vital signs: Last Vital Signs Temp 97.4 F L 05/20/18 07:36 Pulse 88 05/20/18 06:00 Resp 16 05/20/18 06:00 BP 100/54 05/20/18 06:00 Pulse Ox 91 05/20/18 06:00 Results - Laboratory Findings CBC and BMP: 05/20/18 04:04 05/20/18 04:04 ABG ABG pH 7.39 pH Units (7.32-7.45) 05/19/18 04:52 ABG pCO2 34 mmHg (35-45) L 05/19/18 04:52 ABG pO2 60 mmHg (85-104) L 05/19/18 04:52 ABG O2 Saturation 91 % (95-98) L 05/19/18 04:52 PT/INR, D-dimer PT 14.3 Seconds (9.4-12.1) H 05/17/18 15:57 Abnormal lab findings: Abnormal lab results WBC 20.7 K/mcL (4.3-11.1) H 05/20/18 04:04 RBC 2.68 M/mcL (4.19-5.50) L 05/20/18 04:04 Hgb 8.5 g/dL (12.9-16.9) L 05/20/18 04:04 Hct 24.5 % (37.5-50.1) L 05/20/18 04:04 RDW 15.6 % (11.5-14.5) H 05/20/18 04:04 Plt Count 76 K/mcL (140-400) L 05/20/18 04:04 Neutrophils # 16.3 K/mcL (1.6-8.9) H 05/20/18 04:04 Monocytes # 2.1 K/mcL (0.0-1.3) H 05/20/18 04:04 Platelet Estimate Decreased (Normal) L 05/18/18 04:00 Immature Plt Fraction 6.3 % (1.1-6.1) H 05/20/18 04:04 PT 14.3 Seconds (9.4-12.1) H 05/17/18 15:57 ABG pCO2 34 mmHg (35-45) L 05/19/18 04:52 ABG pO2 60 mmHg (85-104) L 05/19/18 04:52 ABG O2 Saturation 91 % (95-98) L 05/19/18 04:52 ABG Base Excess -4 mEq/L (-2 to 3) L 05/19/18 04:52 Chloride 110 mEq/L (98-107) H 05/20/18 04:04 Est GFR (Non-Af Amer) 56 (> 60) L 05/20/18 04:04 Glucose 122 mg/dL (70-105) H 05/20/18 04:04 POC Glucose 125 mg/dL (70-99) H 05/19/18 23:47 Lactic Acid 3.5 mmol/L (0.5-2.2) H 05/19/18 04:59 Creatine Kinase 588 Units/L (30-223) H 05/17/18 15:57 Serum Total Protein 5.3 g/dL (6.4-8.9) L 05/20/18 04:04 Albumin 3.0 g/dL (3.5-5.7) L 05/20/18 04:04 Globulin 2.3 g/dL (2.4-3.5) L 05/20/18 04:04 Urine Clarity Cloudy (Clear) A 05/17/18 18:15 Urine Microscopic WBC 3-5 per hpf (0-3) H 05/17/18 18:15 Ur Squamous Epith Cells Many per lpf (None-Few) H 05/17/18 18:15 Pleural Appearance Bloody (Clear) A 05/19/18 11:00 Pleural RBC 3.192 M/mcL (0.000-0.002) H 05/19/18 11:00 Pleural Tot Nuc Cell 4571 TNC/mcL (0-1000) H 05/19/18 11:00 Salicylates < 2.5 mg/dL (15.0-30.0) L 05/17/18 21:46 Acetaminophen < 10 mcg/mL (10-20) L 05/17/18 21:46 U Benzodiazepines Scrn Positive ng/mL (Zwfksd=660) H 05/17/18 21:45 Hepatitis C Ab Screen Reactive (Nonreactive) H 05/17/18 23:20 - Microbiology Findings Microbiology Findings: Microbiology, Last 48 Hours 05/19/18 11:00 Gram Stain - Final Pleural Fluid 05/18/18 12:29 Sputum Culture - Preliminary Sputum - Clinical Findings Intake & Output: Intake & Output 05/19/18 05/20/18 05/20/18 23:59 07:59 15:59 Intake Total 100 / 100 100 / 100 Output Total 300 / 300 2074 / 2074 Balance -200 / - -1974 / -1974 - Attending Attestation I examined this patient and my medical decision-making was reviewed with the Resident Physician. I agree with the documented findings, disposition and treatment plan as described except to the extent set forth below. Patient seen and examined. Labs, radiology, chart personally reviewed. Agree with resident's history and physical, assessment, plan with following comments: [employer]: Patient follows commands, Pulmonary: Acceptable oxygenation and ventilation. With hemothorax and his chest x-ray left hemothorax opacification will need CT chest for better visualization and possible chest tube placement. Patient hypoxia still persist and encourage incentive spirometry. CT chest showed pleural effusion, however his SPO2 is much better now and will plan for chest tube placement. Cardiovascular: stable GI: Nutrition per dietary and GI prophylaxis per routine Heme: DVT prophylaxis per routine. Patient with acute blood loss anemia. Continue monitoring. ID: Continue antibiotics and plan to de-escalation Renal; urine out put and renal funtion reviewed Endorcine: blood glucose is monitored Lines: all lines checked and no evidence of infections Skin: skin care to prevent pressure ulcers per nursing routine care
[2018-05-20] MEDS: Lacri-Lube 3.5 GM TUBE BOTH EYES SCH (08:15)
[2018-05-20] MEDS: diazePAM 5 MG TABLET PO SCH ×3 (08:20→20:15)
[2018-05-20] MEDS: Piperacillin/Tazobactam 3.375 GM in 0.9 % Sodium Chloride Mini Bag 100 ML IVPB SCH ×2 (08:20→16:40)
[2018-05-20] MEDS: Nicotine 21 MG PATCH.TD24 TD SCH (08:42)
[2018-05-20] MEDS ORDERED: predniSONE 20 MG TABLET PO SCH (09:00)
[2018-05-20] MEDS: Acetaminophen 325 MG TABLET PO PRN ×2 (13:18→17:20)
[2018-05-20] MEDS ORDERED: Ipratropium Neb 0.5 MG NEBULIZER IH PRN (19:28)
[2018-05-20] MEDS ORDERED: Dextrose Gel 15 GM/37.5 ML TUBE PO PRN ×2 (19:28)
[2018-05-20] MEDS ORDERED: Naloxone 0.4 MG/ML INJ IVP PRN (19:28)
[2018-05-20] MEDS ORDERED: *HR* Dextrose 50 % in Water (Syg) 50 ML SYRINGE IVP PRN (19:28)
[2018-05-20] MEDS ORDERED: D5% in Water 1,000 ML IVC PRN (19:28)
[2018-05-20] MEDS: OLANZapine 10 MG TAB.RAPDIS PO SCH (20:15)
[2018-05-21] MEDS: Piperacillin/Tazobactam 3.375 GM in 0.9 % Sodium Chloride Mini Bag 100 ML IVPB SCH ×3 (00:49→16:38)
[2018-05-21] MEDS: Ipratropium/Albuterol Neb 3 ML IH SCH ×4 (04:27→22:10)
[2018-05-21 05:23] LABS: Red Cell Distribution Width 15.9 % (11.5-14.5)
[2018-05-21 05:24] LABS: Basophils % 0.1 %; Nucleated Red Blood Cells 0.1 /100 WBC (0)
[2018-05-21 05:25] LABS: Eosinophils % 0.1 %; Hematocrit 28.5 % (37.5-50.1); Hemoglobin 9.8 g/dL (12.9-16.9); Immature Granulocytes % 0.6 % (0-4); Immature Platelets 5.8 % (1.1-6.1); Lymphocytes # 3.1 K/mcL (0.6-4.6); Lymphocytes % 16.7 %; Mean Corpuscular HGB Conc 34.4 g/dL (31.6-35.5); Mean Corpuscular Hemoglobin 31.8 pg (28.0-33.3); Mean Corpuscular Volume 92.5 fL (83.0-100.0); Mean Platelet Volume 11.2 fL (9.4-12.4); Monocytes # 1.9 K/mcL (0.0-1.3); Monocytes % 10.2 %; Neutrophils # 13.4 K/mcL (1.6-8.9); Platelet Count 100 K/mcL (140-400); Red Blood Count 3.08 M/mcL (4.19-5.50); Segmented Neutrophils % 72.3 %
[2018-05-21 05:26] LABS: BUN/Creatinine Ratio 14 (6-26); Blood Urea Nitrogen 19 mg/dL (8-23); Calcium 8.9 mg/dL (8.6-10.3); Carbon Dioxide 26 mEq/L (23-29); Chloride 109 mEq/L (98-107); Glucose 108 mg/dL (70-105); Osmolality,Calculated 293 (280-300); Potassium 4.1 mEq/L (3.5-5.1); Sodium 140 mEq/L (136-145); eGFR For Non-African Americans 54 (> 60)
[2018-05-21] MEDS: *HR* Heparin 5,000 UNIT/ML VIAL SQ SCH ×2 (05:41→16:40)
--- NOTE | 2018-05-21 08:47 | Pulmonology Progress Note ---
<Juan Wilson M - Last Filed: 05/21/18 10:45> Date of Encounter: 05/21/18 Objective PUL Vital signs: Last Vital Signs Temp 98.3 F 05/21/18 07:11 Pulse 76 05/21/18 07:11 Resp 15 05/21/18 07:11 BP 114/70 05/21/18 07:11 Pulse Ox 95 05/21/18 07:11 Results - Laboratory Findings CBC and BMP: 05/21/18 04:57 05/21/18 04:57 ABG ABG pH 7.39 pH Units (7.32-7.45) 05/19/18 04:52 ABG pCO2 34 mmHg (35-45) L 05/19/18 04:52 ABG pO2 60 mmHg (85-104) L 05/19/18 04:52 ABG O2 Saturation 91 % (95-98) L 05/19/18 04:52 PT/INR, D-dimer PT 14.3 Seconds (9.4-12.1) H 05/17/18 15:57 Abnormal lab findings: Abnormal lab results WBC 18.5 K/mcL (4.3-11.1) H 05/21/18 04:57 RBC 3.08 M/mcL (4.19-5.50) L 05/21/18 04:57 Hgb 9.8 g/dL (12.9-16.9) L 05/21/18 04:57 Hct 28.5 % (37.5-50.1) L 05/21/18 04:57 RDW 15.9 % (11.5-14.5) H 05/21/18 04:57 Plt Count 100 K/mcL (140-400) L 05/21/18 04:57 Neutrophils # 13.4 K/mcL (1.6-8.9) H 05/21/18 04:57 Monocytes # 1.9 K/mcL (0.0-1.3) H 05/21/18 04:57 Nucleated RBCs/100 WBC 0.1 /100 WBC (0) H 05/21/18 04:57 Platelet Estimate Decreased (Normal) L 05/18/18 04:00 PT 14.3 Seconds (9.4-12.1) H 05/17/18 15:57 ABG pCO2 34 mmHg (35-45) L 05/19/18 04:52 ABG pO2 60 mmHg (85-104) L 05/19/18 04:52 ABG O2 Saturation 91 % (95-98) L 05/19/18 04:52 ABG Base Excess -4 mEq/L (-2 to 3) L 05/19/18 04:52 Chloride 109 mEq/L (98-107) H 05/21/18 04:57 Creatinine 1.34 mg/dL (0.70-1.30) H 05/21/18 04:57 Est GFR (Non-Af Amer) 54 (> 60) L 05/21/18 04:57 Glucose 108 mg/dL (70-105) H 05/21/18 04:57 POC Glucose 159 mg/dL (70-99) H 05/20/18 16:46 Lactic Acid 3.5 mmol/L (0.5-2.2) H 05/19/18 04:59 Creatine Kinase 588 Units/L (30-223) H 05/17/18 15:57 Serum Total Protein 5.3 g/dL (6.4-8.9) L 05/20/18 04:04 Albumin 3.0 g/dL (3.5-5.7) L 05/20/18 04:04 Globulin 2.3 g/dL (2.4-3.5) L 05/20/18 04:04 Urine Clarity Cloudy (Clear) A 05/17/18 18:15 Urine Microscopic WBC 3-5 per hpf (0-3) H 05/17/18 18:15 Ur Squamous Epith Cells Many per lpf (None-Few) H 05/17/18 18:15 Pleural Appearance Bloody (Clear) A 05/19/18 11:00 Pleural RBC 3.192 M/mcL (0.000-0.002) H 05/19/18 11:00 Pleural Tot Nuc Cell 4571 TNC/mcL (0-1000) H 05/19/18 11:00 Salicylates < 2.5 mg/dL (15.0-30.0) L 05/17/18 21:46 Acetaminophen < 10 mcg/mL (10-20) L 05/17/18 21:46 U Benzodiazepines Scrn Positive ng/mL (Oxnbxf=386) H 05/17/18 21:45 Hepatitis C Ab Screen Reactive (Nonreactive) H 05/17/18 23:20 - Microbiology Findings Microbiology Findings: Microbiology, Last 48 Hours 05/18/18 12:29 Sputum Culture - Final Sputum 05/19/18 11:00 Gram Stain - Final Pleural Fluid Body Fluid Culture - Preliminary - Clinical Findings Intake & Output: Intake & Output 05/20/18 05/21/18 05/21/18 23:59 07:59 15:59 Intake Total 150 / 150 100 / 100 120 / 120 Output Total 1500 / 1500 1300 / 1300 Balance -1350 / -1350 -1200 / -1200 120 / 120 Weight 86.5 kg Consult Discharge Plan - Plan Referrals: NONE,PCP [Primary Care Provider] - - Attending Attestation I examined this patient and my medical decision-making was reviewed with the Resident Physician. I agree with the documented findings, disposition and treatment plan as described except to the extent set forth below. Patient seen and examined. Labs, radiology, chart personally reviewed. Agree with resident's history and physical, assessment, plan with following comments: [employer]: Patient follows commands, Pulmonary: Acceptable oxygenation and ventilation and patient status post trauma to the left chest with hemothorax which was evidence on thoracentesis. Since clinically patient is comfortable and no significant distress then to monitor for now and follow-up CT chest in about 1-2 months after his discharge from the hospital. Complete course of antibiotics for about 7-8 days. Please call for any questions. <Santosh Hairston - Last Filed: 05/21/18 19:38> Date of Encounter: 05/21/18 Time of Encounter: 08:45 Assessment and Plan (1) HAP (hospital-acquired pneumonia) Current Visit: Yes Status: Acute - patient endorses no SOB, palpitations, fever, is afebrile. Day 4 of Zosyn - Patient was admitted because of inability to protect his airway seconday to septic shock - Patient's chest x-ray was positive for consolidative opacity in the apical left upper lobe - Serology work up was negative for RSV , Influenza A and B, HIV, and Hep B. - Currently patient is day 3 post extubated. He endorses no shortness of breath , chest pain and is A&O 3. - His post thoracentesis CT was positive for left-sided pleural effusion. It could be secondary to his pneumonia. - continue monitoring the hemodynamic status (2) CKD (chronic kidney disease) Current Visit: Yes Status: Acute -patient has a Hx of CKD stage 3, he is at a risk factor for worsening kidney function because of age and ethnicity (-vietnamese) - his GFR was 38 when he was admitted but currently it is trending back to his baseline (~50-60) -avoid all nephrotoxic agents, we will continue to monitor patient's hemodynamic status Qualifiers: Qualified Code(s): N18.3 - Chronic kidney disease, stage 3 (moderate) (3) GENE (acute kidney injury) Current Visit: Yes Status: Acute - Patient Cr was 2.13 on admission, currently it is trending low 1.68-> 1.6-> 1.52-> 1.30-> 1.34 - This could be secondary to his septic shock, and Hx of CKD state 3. - Patient's septic shock has resolved. - continue monitoring patient's kidney function, (4) Anemia Current Visit: Yes Status: Acute -Resolved. 10.9 ->6.7 -> 9.4-> 8.7->8.5-> 9.8 - abdominal CT was negative for any bleeding, head CT was negative for any hemorrhage - Stool Guaiac test was negative - s/p thoracentesis showed some blood mixed with purulent fluid- pathologic analysis showed Exudate fluid. 0 we are going to keep monitoring the hemodyankic function of the patient Qualifiers: Qualified Code(s): D64.9 - Anemia, unspecified (5) Pleural effusion Current Visit: Yes Status: Acute - Patient's CT was positive for Large left pleural effusion, resulting in mediastinal shift to the right. - Effusion could be likely secondary to his pneumonia - Patient is s/p thoracentesis. Pathologic analysis revealed it is an Exudate ( Pleural LDH/Serum LDH > 0.5) - Repeat chest CT showed a Large left pleural effusion and adjacent airspace disease. (6) Septic shock Current Visit: Yes Status: Resolved - currently resolved . patient transferred to the floor -patient had elevated lactate on admission (6.7), tachyardiac, and hypotensive refractory to IV boluses. - likely due to his PNA , and Left large pleural effusion - currently on the Zosyn only (Dc'ed Levaflox and Vanc) - continue to monitor the hemodynamic status (7) Acute respiratory failure with hypoxia Current Visit: Yes Status: Resolved -Likely due to his LLL pneumonia and pleural effusion - patient has a Hx of COPD, currently unsure if he is on any medication - We have discontinued the patient's vancomycin because his MRSA surveillance was negative . Discontinued his Levofloxacin. Patient is currently on day 3 of Zosy. - He is s/p thoracentesis - tolerated the procedure very well (8) Rib pain Current Visit: Yes Status: Acute patient has a Hx of fall when he was admitted No aurelia erythema or abrasion in region of pain, skin intact Lidocaine patch for localized region (9) DVT prophylaxis Current Visit: No Status: Acute - Is on subcutaneous heparin. Subjective Principal diagnosis: Acute hypoxic respiraory failure Interval history: 05/21/2018 No acute events overnight. Patient is day 2 status post thoracentesis. He denies any shortness of breath. He endorses chest pain secondary to his fall. His physical exam looks pretty unremarkable. I did not appreciate any wheezing , rhonchi, or rales. Patient is on day 4 of Zosyn. Back on his home on psychiatric medications. Patient is on day 1 of prednisone 40mg PO. His white blood count is still elevated however is gone down from 20.7 yesterday to 18.5 today. It could be secondary to his pneumonia and secondary to being on prednisone. 05/20/2018 No acute events today. Patient is status post thoracentesis. He tolerated the procedure very well. Currently he is at day one s/p extubation and breathing with oxygen mask at at 10 LBM. Patient is very stable after thoracentesis. He denies shortness of any new cough onset, breath, chest pain, palpitation. Patient white blood count continues to be elevated. His hemoglobin was 9.4 yesterday but dropped to 8.7 today. On day 2 of his antibiotics vancomycin, Zosyn, Levaquin. His MRSA swab was negative and therefore we discontinued his Vancomycin. We have started the patient back on his home medications but have decreased his home Valium to 5 mg. Objective PUL Vital signs: Last Vital Signs Temp 98.3 F 05/21/18 07:11 Pulse 76 05/21/18 07:11 Resp 15 05/21/18 07:11 BP 114/70 05/21/18 07:11 Pulse Ox 95 05/21/18 07:11 General appearance: lethargic (endorse rib pain on inspiration), asleep Effort: normal Auscultation: left: diminished breath sounds, bilateral: clear Cardiovascular: regular rate and rhythm (no gallops, murmurs or rubs) Gastrointestinal: soft, non-tender, non-distended Extremities: no cyanosis, no edema, no clubbing Results - Laboratory Findings CBC and BMP: 05/21/18 04:57 05/21/18 04:57 ABG ABG pH 7.39 pH Units (7.32-7.45) 05/19/18 04:52 ABG pCO2 34 mmHg (35-45) L 05/19/18 04:52 ABG pO2 60 mmHg (85-104) L 05/19/18 04:52 ABG O2 Saturation 91 % (95-98) L 05/19/18 04:52 PT/INR, D-dimer PT 14.3 Seconds (9.4-12.1) H 05/17/18 15:57 Abnormal lab findings: Abnormal lab results WBC 18.5 K/mcL (4.3-11.1) H 05/21/18 04:57 RBC 3.08 M/mcL (4.19-5.50) L 05/21/18 04:57 Hgb 9.8 g/dL (12.9-16.9) L 05/21/18 04:57 Hct 28.5 % (37.5-50.1) L 05/21/18 04:57 RDW 15.9 % (11.5-14.5) H 05/21/18 04:57 Plt Count 100 K/mcL (140-400) L 05/21/18 04:57 Neutrophils # 13.4 K/mcL (1.6-8.9) H 05/21/18 04:57 Monocytes # 1.9 K/mcL (0.0-1.3) H 05/21/18 04:57 Nucleated RBCs/100 WBC 0.1 /100 WBC (0) H 05/21/18 04:57 Platelet Estimate Decreased (Normal) L 05/18/18 04:00 PT 14.3 Seconds (9.4-12.1) H 05/17/18 15:57 ABG pCO2 34 mmHg (35-45) L 05/19/18 04:52 ABG pO2 60 mmHg (85-104) L 05/19/18 04:52 ABG O2 Saturation 91 % (95-98) L 05/19/18 04:52 ABG Base Excess -4 mEq/L (-2 to 3) L 05/19/18 04:52 Chloride 109 mEq/L (98-107) H 05/21/18 04:57 Creatinine 1.34 mg/dL (0.70-1.30) H 05/21/18 04:57 Est GFR (Non-Af Amer) 54 (> 60) L 05/21/18 04:57 Glucose 108 mg/dL (70-105) H 05/21/18 04:57 POC Glucose 159 mg/dL (70-99) H 05/20/18 16:46 Lactic Acid 3.5 mmol/L (0.5-2.2) H 05/19/18 04:59 Creatine Kinase 588 Units/L (30-223) H 05/17/18 15:57 Serum Total Protein 5.3 g/dL (6.4-8.9) L 05/20/18 04:04 Albumin 3.0 g/dL (3.5-5.7) L 05/20/18 04:04 Globulin 2.3 g/dL (2.4-3.5) L 05/20/18 04:04 Urine Clarity Cloudy (Clear) A 05/17/18 18:15 Urine Microscopic WBC 3-5 per hpf (0-3) H 05/17/18 18:15 Ur Squamous Epith Cells Many per lpf (None-Few) H 05/17/18 18:15 Pleural Appearance Bloody (Clear) A 05/19/18 11:00 Pleural RBC 3.192 M/mcL (0.000-0.002) H 05/19/18 11:00 Pleural Tot Nuc Cell 4571 TNC/mcL (0-1000) H 05/19/18 11:00 Salicylates < 2.5 mg/dL (15.0-30.0) L 05/17/18 21:46 Acetaminophen < 10 mcg/mL (10-20) L 05/17/18 21:46 U Benzodiazepines Scrn Positive ng/mL (Jfqesq=035) H 05/17/18 21:45 Hepatitis C Ab Screen Reactive (Nonreactive) H 05/17/18 23:20 - Microbiology Findings Microbiology Findings: Microbiology, Last 48 Hours 05/18/18 12:29 Sputum Culture - Preliminary Sputum 05/19/18 11:00 Gram Stain - Final Pleural Fluid Body Fluid Culture - Preliminary - Clinical Findings Intake & Output: Intake & Output 05/20/18 05/21/18 05/21/18 23:59 07:59 15:59 Intake Total 150 / 150 100 / 100 Output Total 1500 / 1500 1300 / 1300 Balance -1350 / -1350 -1200 / -1200 Weight 86.5 kg - VTE Documentation of Mechanical Device: Intermittent pneumatic compression device
[2018-05-21] MEDS ORDERED: predniSONE 20 MG TABLET PO SCH (09:00)
[2018-05-21] MEDS: Nicotine 21 MG PATCH.TD24 TD SCH (10:37)
[2018-05-21] MEDS: diazePAM 5 MG TABLET PO SCH ×3 (10:38→20:38)
[2018-05-21] MEDS: Acetaminophen 325 MG TABLET PO PRN (10:49)
--- NOTE | 2018-05-21 15:12 | Internal Med Progress Note ---
<Rashid Mora R - Last Filed: 05/21/18 15:09> Hospitalist Progress Note - Encounter Date of Encounter: 05/21/18 Time of Encounter: 10:30 - Subjective Interval History: Mr. Yang is a 62 y/o male with PMH of pneumonia, HTN, COPD, schizoaffective disorder, depression, PTSD, and smoking history who presented to [facility] for cough , lightheadedness, and a fall at home. Today patient is resting comfortably on 4L nasal cannula. Patients SOB has improved, no complaints of difficulty breathing. Patient complains of localized pain near the mid clavicular line of left rib 8 that is constant. Describes it as a sharp, non radiating pain. It is reproducible with palpation. Worsened with movement, relief when sitting still with rest. Patient recalls possibly running into table corner at home and hitting that region causing the injury. No further new complaints today. ROS: GEN - denies chills, fever, fatigue, HEENT - denies headache, vision changes, hearing changes NECK - denies stiffness CV - denies CP, SOB, Palpitations RESP - denies difficulty breathing, coughing, wheezing, sputum production, hemoptysis GI - denies nausea, vomiting, diarrhea, constipation - denies dysuria, hematuria MSK - denies joint pain NEURO - denies loss of sensation, tingling - Exam Vitals: Temp Pulse Resp BP Pulse Ox 98.2 F 84 16 118/71 98 05/21/18 11:04 05/21/18 11:04 05/21/18 11:04 05/21/18 11:04 05/21/18 11:04 Exam: GEN - well appearing male in mild distress, on 4L nasal cannula, A&Ox3 HEENT - atraumatic, pupils miotic but PEERL, EOMI, nasal mucosa moist Neck - no lymphadenopathy, good ROM CV - RRR, no murmurs, no JVD, no edema RESP - diminished breath sounds, no egophany, chest symmetry with respirations, no dullness to percussion GI - abdomen mildly distended, no tenderness to palpation, BSx4 MSK - appropriate ROM NEURO - strength 5/5 UE & LE - Assessment and Plan (1) Pneumonia Current Visit: Yes Status: Acute Assessment and Plan: Patient does not complain of respiratory symptoms today and is drastically improving symptomatically - still on 4 L O2 CXR shows improving large left sided pleural effusion, aeration is improving Cultures started on 05/17 show no growth to date, RSV, influenza, HIV negative Patient is afebrile, leukocytosis improving Pulmonology following - appreciate recommendations - currently on Zosyn, de-escalate as possible (2) Septic shock Current Visit: Yes Status: Resolved Assessment and Plan: Was intubation upon admission d/t AMS and hypotension - resolved (3) Acute kidney injury superimposed on CKD Current Visit: Yes Status: Acute Assessment and Plan: Baseline GFR is 55-60, Cr 1.4-1.5. Patient's GFR on admission was 38, current GFR: >60, BUN: 19, Cr: 1.34 Renal function is trending back to baseline, continue to monitor with BMPs Secondary to acute illness, sepsis, pneumonia and chronic CKD Stage 3 Continue to monitor electrolytes and hold nephrotoxic agents (4) Rib pain on left side Current Visit: Yes Status: Acute Assessment and Plan: Acute, secondary to trauma No aurelia erythema or abrasion in region of pain, skin intact Lidocaine patch for localized region (5) Anemia Current Visit: Yes Status: Acute Assessment and Plan: Most recent Hgb is 9.8, up from yesterday 8.5, baseline is 11-12 Patient is not symptomatic, s/p thoracentesis. Stool guaiac was negative, no signs of bleeding Continue to monitor, transfuse if Hgb<7 DVT Prophylaxis: Subq heparin - Time Spent with Patient Total time spent is greater than 50% in coordination of care (as documented) at patient's floor/unit and/or counseling patient: Internal Medicine: Result - Labs CBC & Chem 7: 05/21/18 04:57 05/21/18 04:57 Labs: Short CBC 05/21/18 Range/Units 04:57 WBC 18.5 H (4.3-11.1) K/mcL Hgb 9.8 L (12.9-16.9) g/dL Hct 28.5 L (37.5-50.1) % Plt Count 100 L (140-400) K/mcL Neutrophils # 13.4 H (1.6-8.9) K/mcL BMP 05/21/18 04:57 Sodium 140 Potassium 4.1 Chloride 109 H Carbon Dioxide 26 BUN 19 Creatinine 1.34 H Glucose 108 H Calcium 8.9 - ABG Interpretation ABG results: ABG ABG pH 7.39 pH Units (7.32-7.45) 05/19/18 04:52 ABG pCO2 34 mmHg (35-45) L 05/19/18 04:52 ABG pO2 60 mmHg (85-104) L 05/19/18 04:52 ABG O2 Saturation 91 % (95-98) L 05/19/18 04:52 PT/INR, D-dimer PT 14.3 Seconds (9.4-12.1) H 05/17/18 15:57 - Impressions Impressions Chest X-Ray 05/21/18 04:00 IMPRESSION: Large left-sided pleural effusion with interval improvement. Improved aeration is now seen in the left upper lobe. D/ / Ochoa Minor MD / Ochoa Minor MD Interpreting Provider: Ochoa Minor MD - VTE Documentation of Mechanical Device: Intermittent pneumatic compression device Consult Discharge Plan - Plan Referrals: NONE,PCP [Primary Care Provider] - <Hang Peterson - Last Filed: 05/21/18 15:45> Hospitalist Progress Note - Encounter Date of Encounter: 05/21/18 - Exam Vitals: Temp Pulse Resp BP Pulse Ox 98.2 F 84 16 118/71 98 05/21/18 11:04 05/21/18 11:04 05/21/18 11:04 05/21/18 11:04 05/21/18 11:04 - Assessment and Plan (1) DVT prophylaxis Current Visit: No Status: Acute (2) Acute respiratory failure with hypoxia Current Visit: Yes Status: Resolved (3) Septic shock Current Visit: Yes Status: Resolved (4) CKD (chronic kidney disease) Current Visit: Yes Status: Acute (5) GENE (acute kidney injury) Current Visit: Yes Status: Acute (6) Anemia Current Visit: Yes Status: Acute (7) HAP (hospital-acquired pneumonia) Current Visit: Yes Status: Acute (8) Pleural effusion Current Visit: Yes Status: Acute - Time Spent with Patient Total time spent is greater than 50% in coordination of care (as documented) at patient's floor/unit and/or counseling patient: Internal Medicine: Result - Labs CBC & Chem 7: 05/21/18 04:57 05/21/18 04:57 Labs: Short CBC 05/21/18 Range/Units 04:57 WBC 18.5 H (4.3-11.1) K/mcL Hgb 9.8 L (12.9-16.9) g/dL Hct 28.5 L (37.5-50.1) % Plt Count 100 L (140-400) K/mcL Neutrophils # 13.4 H (1.6-8.9) K/mcL BMP 05/21/18 04:57 Sodium 140 Potassium 4.1 Chloride 109 H Carbon Dioxide 26 BUN 19 Creatinine 1.34 H Glucose 108 H Calcium 8.9 - ABG Interpretation ABG results: ABG ABG pH 7.39 pH Units (7.32-7.45) 05/19/18 04:52 ABG pCO2 34 mmHg (35-45) L 05/19/18 04:52 ABG pO2 60 mmHg (85-104) L 05/19/18 04:52 ABG O2 Saturation 91 % (95-98) L 05/19/18 04:52 PT/INR, D-dimer PT 14.3 Seconds (9.4-12.1) H 05/17/18 15:57 - Impressions Impressions Chest X-Ray 05/21/18 04:00 IMPRESSION: Large left-sided pleural effusion with interval improvement. Improved aeration is now seen in the left upper lobe. D/ / Ochoa Minor MD / Ochoa Minor MD Interpreting Provider: Ochoa Minor MD - Attending Attestation I have seen and examined this patient independently. I have discussed with resident physician Dr. Mora regarding the management plan. Agree with the documentation. <Rashid Mora R - Last Filed: 05/21/18 15:09> (1) Pneumonia Qualifiers: Pneumonia type: due to unspecified organism Laterality: left Lung location: lower lobe of lung Qualified Code(s): J18.1 - Lobar pneumonia, unspecified organism
[2018-05-21] MEDS: OLANZapine 10 MG TAB.RAPDIS PO SCH (20:38)
[2018-05-21] MEDS: traZODone 50 MG TABLET PO SCH (20:38)
[2018-05-22] MEDS: Piperacillin/Tazobactam 3.375 GM in 0.9 % Sodium Chloride Mini Bag 100 ML IVPB SCH ×2 (00:45→08:45)
[2018-05-22] MEDS: Ipratropium/Albuterol Neb 3 ML IH SCH ×4 (04:18→22:10)
[2018-05-22 04:51] LABS: Basophils % 0.1 %; Eosinophils % 0.2 %; Hematocrit 29.5 % (37.5-50.1); Hemoglobin 9.9 g/dL (12.9-16.9); Immature Granulocytes % 0.5 % (0-4); Lymphocytes # 3.5 K/mcL (0.6-4.6); Lymphocytes % 21.8 %; Mean Corpuscular HGB Conc 33.6 g/dL (31.6-35.5); Mean Corpuscular Hemoglobin 30.5 pg (28.0-33.3); Mean Corpuscular Volume 90.8 fL (83.0-100.0); Monocytes # 1.4 K/mcL (0.0-1.3); Neutrophils # 10.9 K/mcL (1.6-8.9); Nucleated Red Blood Cells 0.1 /100 WBC (0); Platelet Count 119 K/mcL (140-400); Red Blood Count 3.25 M/mcL (4.19-5.50); Red Cell Distribution Width 16.1 % (11.5-14.5); Segmented Neutrophils % 68.4 %
[2018-05-22 05:05] LABS: BUN/Creatinine Ratio 16 (6-26); Blood Urea Nitrogen 20 mg/dL (8-23); Carbon Dioxide 26 mEq/L (23-29); Chloride 107 mEq/L (98-107); Glucose 102 mg/dL (70-105); Osmolality,Calculated 293 (280-300); Potassium 3.8 mEq/L (3.5-5.1); Sodium 140 mEq/L (136-145); eGFR For Non-African Americans 57 (> 60)
[2018-05-22] MEDS: *HR* Heparin 5,000 UNIT/ML VIAL SQ SCH ×2 (05:31→17:15)
[2018-05-22] MEDS: Acetaminophen 325 MG TABLET PO PRN (08:44)
[2018-05-22] MEDS: Nicotine 21 MG PATCH.TD24 TD SCH (08:44)
[2018-05-22] MEDS: diazePAM 5 MG TABLET PO SCH ×3 (08:44→21:48)
--- NOTE | 2018-05-22 09:27 | Pulmonology Progress Note ---
<KatieSimadontae M - Last Filed: 05/22/18 11:56> Date of Encounter: 05/22/18 Objective PUL Vital signs: Last Vital Signs Temp 97.2 F L 05/22/18 07:59 Pulse 84 05/22/18 07:59 Resp 16 05/22/18 10:38 BP 132/63 05/22/18 07:59 Pulse Ox 88 05/22/18 10:38 Results - Laboratory Findings CBC and BMP: 05/22/18 03:52 05/22/18 03:52 ABG ABG pH 7.39 pH Units (7.32-7.45) 05/19/18 04:52 ABG pCO2 34 mmHg (35-45) L 05/19/18 04:52 ABG pO2 60 mmHg (85-104) L 05/19/18 04:52 ABG O2 Saturation 91 % (95-98) L 05/19/18 04:52 PT/INR, D-dimer PT 14.3 Seconds (9.4-12.1) H 05/17/18 15:57 Abnormal lab findings: Abnormal lab results WBC 16.0 K/mcL (4.3-11.1) H 05/22/18 03:52 RBC 3.25 M/mcL (4.19-5.50) L 05/22/18 03:52 Hgb 9.9 g/dL (12.9-16.9) L 05/22/18 03:52 Hct 29.5 % (37.5-50.1) L 05/22/18 03:52 RDW 16.1 % (11.5-14.5) H 05/22/18 03:52 Plt Count 119 K/mcL (140-400) L 05/22/18 03:52 Neutrophils # 10.9 K/mcL (1.6-8.9) H 05/22/18 03:52 Monocytes # 1.4 K/mcL (0.0-1.3) H 05/22/18 03:52 Nucleated RBCs/100 WBC 0.1 /100 WBC (0) H 05/22/18 03:52 Platelet Estimate Decreased (Normal) L 05/18/18 04:00 PT 14.3 Seconds (9.4-12.1) H 05/17/18 15:57 ABG pCO2 34 mmHg (35-45) L 05/19/18 04:52 ABG pO2 60 mmHg (85-104) L 05/19/18 04:52 ABG O2 Saturation 91 % (95-98) L 05/19/18 04:52 ABG Base Excess -4 mEq/L (-2 to 3) L 05/19/18 04:52 Est GFR (Non-Af Amer) 57 (> 60) L 05/22/18 03:52 POC Glucose 180 mg/dL (70-99) H 05/21/18 16:02 Lactic Acid 3.5 mmol/L (0.5-2.2) H 05/19/18 04:59 Creatine Kinase 588 Units/L (30-223) H 05/17/18 15:57 Serum Total Protein 5.3 g/dL (6.4-8.9) L 05/20/18 04:04 Albumin 3.0 g/dL (3.5-5.7) L 05/20/18 04:04 Globulin 2.3 g/dL (2.4-3.5) L 05/20/18 04:04 Urine Clarity Cloudy (Clear) A 05/17/18 18:15 Urine Microscopic WBC 3-5 per hpf (0-3) H 05/17/18 18:15 Ur Squamous Epith Cells Many per lpf (None-Few) H 05/17/18 18:15 Pleural Appearance Bloody (Clear) A 05/19/18 11:00 Pleural RBC 3.192 M/mcL (0.000-0.002) H 05/19/18 11:00 Pleural Tot Nuc Cell 4571 TNC/mcL (0-1000) H 05/19/18 11:00 Salicylates < 2.5 mg/dL (15.0-30.0) L 05/17/18 21:46 Acetaminophen < 10 mcg/mL (10-20) L 05/17/18 21:46 U Benzodiazepines Scrn Positive ng/mL (Qcbcdu=658) H 05/17/18 21:45 Hepatitis C Ab Screen Reactive (Nonreactive) H 05/17/18 23:20 - Microbiology Findings Microbiology Findings: Microbiology, Last 48 Hours 05/19/18 11:00 Gram Stain - Final Pleural Fluid Body Fluid Culture - Preliminary 05/18/18 12:29 Sputum Culture - Final Sputum - Clinical Findings Intake & Output: Intake & Output 05/21/18 05/22/18 05/22/18 23:59 07:59 15:59 Intake Total 100 / 100 100 / 100 Output Total 1200 / 1200 850 / 850 Balance -1100 / -1100 -750 / -750 Weight 86.4 kg Consult Discharge Plan - Plan Referrals: NONE,PCP [Primary Care Provider] - - Attending Attestation I examined this patient and my medical decision-making was reviewed with the Resident Physician. I agree with the documented findings, disposition and treatment plan as described except to the extent set forth below. Patient seen and examined. Labs, radiology, chart personally reviewed. 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 Discussed with the primary team and since patient does not have any acute respiratory distress monitoring is recommended and empiric antibiotic. Patient can follow-up as outpatient in about 2-[address] chest prior to that. Please call for any questions. <Santosh Hairston - Last Filed: 05/22/18 22:26> Date of Encounter: 05/22/18 Time of Encounter: 11:00 Assessment and Plan (1) Pleural effusion Current Visit: Yes Status: Acute -Effusion was likely secondary to his pneumonia -Patient's CT was positive for Large left pleural effusion, resulting in mediastinal shift to the right. - At the moment, patient endorses no new cough, SOB, he does have chest pain but that is secondary to his rib trauma - We are going to continue monitoring him. Sometimes parapneumonic effusions secondary to PNA can resolve on their own. - (2) Pneumonia Current Visit: Yes Status: Acute - His pneumonia could be secondary to recent visit to the hospital. also a chronic smoker (1 pack a day) - Patient's most recent chest x-ray was positive for dense consolidation/ atelectasis of the left lower lobe and lingula. His WBC remains elevated (16.0) - patient endorses no SOB, palpitations, fever, is afebrile. - Currently patient is day 4 post extubated. - Further management as per the hospitalist team Qualifiers: Pneumonia type: due to unspecified organism Laterality: left Lung location: lower lobe of lung Qualified Code(s): J18.1 - Lobar pneumonia, unspecified organism (3) Septic shock Current Visit: Yes Status: Resolved - sepsis was likely due to his PNA , and Left large pleural effusion -s/p Vanc/ Zosyn administration -currently resolved . patient transferred to the floor -patient had elevated lactate (6.7)on admission to the ICU, tachyardiac, and hypotensive refractory to IV boluses. - currently the PNA is managed by the primary team (4) Acute respiratory failure with hypoxia Current Visit: Yes Status: Resolved - Was likely due to his LLL pneumonia and pleural effusion. - patient has a Hx of chronic smoking with a component of COPD, currently not on any inhalers. - patient is day 4 s/p extubation. currently on 3L NC - will continue to monitor his resp status (5) Rib pain Current Visit: Yes Status: Acute patient has a Hx of fall when he was admitted No aurelia erythema or abrasion in region of pain, skin intact Further management as per the hospitalist team (6) DVT prophylaxis Current Visit: No Status: Acute - Is on subcutaneous heparin. Subjective Principal diagnosis: Acute hypoxic respiraory failure Interval history: 05/22/2018 No acute events overnight. Patient is day 4 status post thoracentesis. He is currently breathing on 3L NC with SpO2 97%. As per the nurse he does get mildly SOB when he is laying on the bed. Patient denies any dyspnea, orthopnea, palpitations. He does have rib pain secondary to his fall. I did not appreciate any wheezing, rhonchi, or rales. Back on his home on psychiatric medications. 05/21/2018 No acute events overnight. Patient is day 2 status post thoracentesis. He denies any shortness of breath. He endorses chest pain secondary to his fall. His physical exam looks pretty unremarkable. I did not appreciate any wheezing , rhonchi, or rales. Patient is on day 4 of Zosyn. Back on his home on psychiatric medications. Patient is on day 1 of prednisone 40mg PO. His white blood count is still elevated however is gone down from 20.7 yesterday to 18.5 today. It could be secondary to his pneumonia and secondary to being on prednisone. 05/20/2018 No acute events today. Patient is status post thoracentesis. He tolerated the procedure very well. Currently he is at day one s/p extubation and breathing with oxygen mask at at 10 LBM. Patient is very stable after thoracentesis. He denies shortness of any new cough onset, breath, chest pain, palpitation. Patient white blood count continues to be elevated. His hemoglobin was 9.4 yesterday but dropped to 8.7 today. On day 2 of his antibiotics vancomycin, Zosyn, Levaquin. His MRSA swab was negative and therefore we discontinued his Vancomycin. We have started the patient back on his home medications but have decreased his home Valium to 5 mg. Objective PUL Vital signs: Last Vital Signs Temp 97.2 F L 05/22/18 07:59 Pulse 84 05/22/18 07:59 Resp 16 05/22/18 07:59 BP 132/63 05/22/18 07:59 Pulse Ox 92 05/22/18 07:59 General appearance: no acute distress, alert Auscultation: bilateral: clear (no wheezing, ronchi or rales) Percussion: bilateral: not dull Cardiovascular: regular rate and rhythm (no gallops, murmurs or rubs) Gastrointestinal: soft, non-tender, non-distended Extremities: no cyanosis, no edema, no clubbing mood appropriate (no suicidl or homicidal ideations), affect normal Results - Laboratory Findings CBC and BMP: 05/22/18 03:52 05/22/18 03:52 ABG ABG pH 7.39 pH Units (7.32-7.45) 05/19/18 04:52 ABG pCO2 34 mmHg (35-45) L 05/19/18 04:52 ABG pO2 60 mmHg (85-104) L 05/19/18 04:52 ABG O2 Saturation 91 % (95-98) L 05/19/18 04:52 PT/INR, D-dimer PT 14.3 Seconds (9.4-12.1) H 05/17/18 15:57 Abnormal lab findings: Abnormal lab results WBC 16.0 K/mcL (4.3-11.1) H 05/22/18 03:52 RBC 3.25 M/mcL (4.19-5.50) L 05/22/18 03:52 Hgb 9.9 g/dL (12.9-16.9) L 05/22/18 03:52 Hct 29.5 % (37.5-50.1) L 05/22/18 03:52 RDW 16.1 % (11.5-14.5) H 05/22/18 03:52 Plt Count 119 K/mcL (140-400) L 05/22/18 03:52 Neutrophils # 10.9 K/mcL (1.6-8.9) H 05/22/18 03:52 Monocytes # 1.4 K/mcL (0.0-1.3) H 05/22/18 03:52 Nucleated RBCs/100 WBC 0.1 /100 WBC (0) H 05/22/18 03:52 Platelet Estimate Decreased (Normal) L 05/18/18 04:00 PT 14.3 Seconds (9.4-12.1) H 05/17/18 15:57 ABG pCO2 34 mmHg (35-45) L 05/19/18 04:52 ABG pO2 60 mmHg (85-104) L 05/19/18 04:52 ABG O2 Saturation 91 % (95-98) L 05/19/18 04:52 ABG Base Excess -4 mEq/L (-2 to 3) L 05/19/18 04:52 Est GFR (Non-Af Amer) 57 (> 60) L 05/22/18 03:52 POC Glucose 180 mg/dL (70-99) H 05/21/18 16:02 Lactic Acid 3.5 mmol/L (0.5-2.2) H 05/19/18 04:59 Creatine Kinase 588 Units/L (30-223) H 05/17/18 15:57 Serum Total Protein 5.3 g/dL (6.4-8.9) L 05/20/18 04:04 Albumin 3.0 g/dL (3.5-5.7) L 05/20/18 04:04 Globulin 2.3 g/dL (2.4-3.5) L 05/20/18 04:04 Urine Clarity Cloudy (Clear) A 05/17/18 18:15 Urine Microscopic WBC 3-5 per hpf (0-3) H 05/17/18 18:15 Ur Squamous Epith Cells Many per lpf (None-Few) H 05/17/18 18:15 Pleural Appearance Bloody (Clear) A 05/19/18 11:00 Pleural RBC 3.192 M/mcL (0.000-0.002) H 05/19/18 11:00 Pleural Tot Nuc Cell 4571 TNC/mcL (0-1000) H 05/19/18 11:00 Salicylates < 2.5 mg/dL (15.0-30.0) L 05/17/18 21:46 Acetaminophen < 10 mcg/mL (10-20) L 05/17/18 21:46 U Benzodiazepines Scrn Positive ng/mL (Afsugn=950) H 05/17/18 21:45 Hepatitis C Ab Screen Reactive (Nonreactive) H 05/17/18 23:20 - Microbiology Findings Microbiology Findings: Microbiology, Last 48 Hours 05/19/18 11:00 Gram Stain - Final Pleural Fluid Body Fluid Culture - Preliminary 05/18/18 12:29 Sputum Culture - Final Sputum - Clinical Findings Intake & Output: Intake & Output 05/21/18 05/22/18 05/22/18 23:59 07:59 15:59 Intake Total 100 / 100 100 / 100 Output Total 1200 / 1200 850 / 850 Balance -1100 / -1100 -750 / -750 Weight 86.4 kg - VTE Documentation of Mechanical Device: Intermittent pneumatic compression device
--- NOTE | 2018-05-22 14:13 | Internal Med Progress Note ---
<Rashid Mora R - Last Filed: 05/22/18 14:10> Hospitalist Progress Note - Encounter Date of Encounter: 05/22/18 Time of Encounter: 09:50 - Subjective Interval History: Mr. Yang is a 62 y/o male with PMH of pneumonia, HTN, COPD, schizoaffective disorder, depression, PTSD, and smoking history who presented to [facility] for cough , lightheadedness, and a fall at home. Today patient is resting comfortably on room air. Denies dyspnea. Reports his rib pain is improving. Denies other complaints. Denies fevers, chills, chest pain, abdominal pain, change in bowels, or dysuria. No overnight events. - Exam Vitals: Temp Pulse Resp BP Pulse Ox 96.8 F L 96 18 126/76 91 05/22/18 12:06 05/22/18 12:06 05/22/18 12:06 05/22/18 12:06 05/22/18 12:17 Exam: GEN: No acute distress, A&Ox3 HEAD: Atraumatic, normocephalic EYES: Pupils symmetric, sclera white, conjunctiva pink HEART: RRR, normal S1 and S2, no murmurs LUNGS: Diminished breath sounds on the left ABD: Soft, nontender, nondistended, bowel sounds present EXT: No edema noted, pulses 2/4 NEURO: No focal deficits, cooperative with exam - Assessment and Plan (1) Pneumonia Current Visit: Yes Status: Acute Assessment and Plan: Denies dyspnea, symptoms are improving O2 saturation 91% on room air Chest x-ray this morning shows continued large left-sided pleural effusion Cultures on 05/17 show no growth to date, RSV, influenza, HIV negative Patient afebrile, leukocytosis improving Pulmonology following, appreciate recommendations - Case discussed will de-escalate to renally dosed Levaquin (2) Septic shock Current Visit: Yes Status: Resolved Assessment and Plan: Intubated upon admission due to AMS and hypotension, this is now resolved (3) Acute kidney injury superimposed on CKD Current Visit: Yes Status: Acute Assessment and Plan: Baseline GFR 55-60, Cr 1.4-1.5. Renal function at or better than baseline now A cast secondary to acute illness, sepsis, pneumonia Renally dose Levaquin Continue to monitor and avoid nephrotoxic medications (4) Rib pain on left side Current Visit: Yes Status: Acute Assessment and Plan: Pain is much improved today with lidocaine patch (5) Anemia Current Visit: Yes Status: Acute Assessment and Plan: Hemoglobin stable at 9.9, baseline appears to be 11-12 Patient is asymptomatic, s/p thoracentesis. Stool guaiac negative, no signs of bleeding Continue to monitor DVT Prophylaxis: Subcutaneous heparin - Time Spent with Patient Total time spent is greater than 50% in coordination of care (as documented) at patient's floor/unit and/or counseling patient: Internal Medicine: Result - Labs CBC & Chem 7: 05/22/18 03:52 05/22/18 03:52 Labs: Short CBC 05/22/18 Range/Units 03:52 WBC 16.0 H (4.3-11.1) K/mcL Hgb 9.9 L (12.9-16.9) g/dL Hct 29.5 L (37.5-50.1) % Plt Count 119 L (140-400) K/mcL Neutrophils # 10.9 H (1.6-8.9) K/mcL BMP 05/22/18 03:52 Sodium 140 Potassium 3.8 Chloride 107 Carbon Dioxide 26 BUN 20 Creatinine 1.28 Glucose 102 Calcium 9.0 - ABG Interpretation ABG results: ABG ABG pH 7.39 pH Units (7.32-7.45) 05/19/18 04:52 ABG pCO2 34 mmHg (35-45) L 05/19/18 04:52 ABG pO2 60 mmHg (85-104) L 05/19/18 04:52 ABG O2 Saturation 91 % (95-98) L 05/19/18 04:52 PT/INR, D-dimer PT 14.3 Seconds (9.4-12.1) H 05/17/18 15:57 - Impressions Impressions Chest X-Ray 05/22/18 04:00 IMPRESSION: Stable chest with large left pleural effusion and dense consolidation/atelectasis of the left lower lobe and lingula D/ / 05/22/2018 08:24:35 Harry Linda MD / [facility] Interpreting Provider: Harry Linda MD - VTE Documentation of Mechanical Device: Intermittent pneumatic compression device Consult Discharge Plan - Plan Referrals: NONE,PCP [Primary Care Provider] - <Hang Peterson - Last Filed: 05/22/18 14:57> Hospitalist Progress Note - Encounter Date of Encounter: 05/22/18 - Exam Vitals: Temp Pulse Resp BP Pulse Ox 96.8 F L 96 18 126/76 91 05/22/18 12:06 05/22/18 12:06 05/22/18 12:06 05/22/18 12:06 05/22/18 12:17 - Assessment and Plan (1) DVT prophylaxis Current Visit: No Status: Acute (2) Acute respiratory failure with hypoxia Current Visit: Yes Status: Resolved (3) Septic shock Current Visit: Yes Status: Resolved (4) CKD (chronic kidney disease) Current Visit: Yes Status: Acute (5) GENE (acute kidney injury) Current Visit: Yes Status: Acute (6) Anemia Current Visit: Yes Status: Acute (7) HAP (hospital-acquired pneumonia) Current Visit: Yes Status: Acute (8) Pleural effusion Current Visit: Yes Status: Acute - Time Spent with Patient Total time spent is greater than 50% in coordination of care (as documented) at patient's floor/unit and/or counseling patient: Internal Medicine: Result - Labs CBC & Chem 7: 05/22/18 03:52 05/22/18 03:52 Labs: Short CBC 05/22/18 Range/Units 03:52 WBC 16.0 H (4.3-11.1) K/mcL Hgb 9.9 L (12.9-16.9) g/dL Hct 29.5 L (37.5-50.1) % Plt Count 119 L (140-400) K/mcL Neutrophils # 10.9 H (1.6-8.9) K/mcL BMP 05/22/18 03:52 Sodium 140 Potassium 3.8 Chloride 107 Carbon Dioxide 26 BUN 20 Creatinine 1.28 Glucose 102 Calcium 9.0 - ABG Interpretation ABG results: ABG ABG pH 7.39 pH Units (7.32-7.45) 05/19/18 04:52 ABG pCO2 34 mmHg (35-45) L 05/19/18 04:52 ABG pO2 60 mmHg (85-104) L 05/19/18 04:52 ABG O2 Saturation 91 % (95-98) L 05/19/18 04:52 PT/INR, D-dimer PT 14.3 Seconds (9.4-12.1) H 05/17/18 15:57 - Impressions Impressions Chest X-Ray 05/22/18 04:00 IMPRESSION: Stable chest with large left pleural effusion and dense consolidation/atelectasis of the left lower lobe and lingula D/ / 05/22/2018 08:24:35 Harry Linda MD / [facility] Interpreting Provider: Harry Linda MD - Attending Attestation I have seen and examined this patient today. I have discussed with resident physician Dr Mora regarding the management plan. Agree with the documentation. <Rashid Mora - Last Filed: 05/22/18 14:10> (1) Pneumonia Qualifiers: Pneumonia type: due to unspecified organism Laterality: left Lung location: lower lobe of lung Qualified Code(s): J18.1 - Lobar pneumonia, unspecified organism (5) Anemia Qualifiers: Qualified Code(s): D64.9 - Anemia, unspecified <Hang Peterson - Last Filed: 05/22/18 14:57> (4) CKD (chronic kidney disease) Qualifiers: Qualified Code(s): N18.3 - Chronic kidney disease, stage 3 (moderate) (6) Anemia Qualifiers: Qualified Code(s): D64.9 - Anemia, unspecified
[2018-05-22] MEDS: Levofloxacin 750 MG/150 ML 750 MG/150 ML BAG IVPB SCH (17:11)
[2018-05-22] MEDS: traZODone 50 MG TABLET PO SCH (21:48)
[2018-05-22] MEDS: OLANZapine 10 MG TAB.RAPDIS PO SCH (21:48)
[2018-05-23] MEDS: Ipratropium/Albuterol Neb 3 ML IH SCH ×4 (04:01→22:45)
[2018-05-23] MEDS: *HR* Heparin 5,000 UNIT/ML VIAL SQ SCH ×2 (05:21→17:08)
[2018-05-23 07:28] LABS: Eosinophils # 0.1 K/mcL (0.0-0.6); Eosinophils % 1.3 %; Hematocrit 28.6 % (37.5-50.1); Hemoglobin 9.7 g/dL (12.9-16.9); Immature Granulocytes % 0.5 % (0-4); Lymphocytes # 3.1 K/mcL (0.6-4.6); Lymphocytes % 33.4 %; Mean Corpuscular HGB Conc 33.9 g/dL (31.6-35.5); Mean Corpuscular Hemoglobin 31.1 pg (28.0-33.3); Mean Corpuscular Volume 91.7 fL (83.0-100.0); Mean Platelet Volume 11.2 fL (9.4-12.4); Monocytes # 1.2 K/mcL (0.0-1.3); Monocytes % 13.4 %; Neutrophils # 4.8 K/mcL (1.6-8.9); Nucleated Red Blood Cells 0.2 /100 WBC (0); Platelet Count 103 K/mcL (140-400); Red Blood Count 3.12 M/mcL (4.19-5.50); Red Cell Distribution Width 15.8 % (11.5-14.5); Segmented Neutrophils % 51.4 %
[2018-05-23] MEDS: Acetaminophen 325 MG TABLET PO PRN (07:41)
[2018-05-23] MEDS: diazePAM 5 MG TABLET PO SCH ×3 (07:42→21:52)
[2018-05-23] MEDS: Nicotine 21 MG PATCH.TD24 TD SCH (07:42)
[2018-05-23 09:54] LABS: BUN/Creatinine Ratio 12 (6-26); Blood Urea Nitrogen 15 mg/dL (8-23); Calcium 8.3 mg/dL (8.6-10.3); Carbon Dioxide 25 mEq/L (23-29); Chloride 105 mEq/L (98-107); Glucose 88 mg/dL (70-105); Osmolality,Calculated 286 (280-300); Potassium 3.7 mEq/L (3.5-5.1); Sodium 138 mEq/L (136-145); eGFR For Non-African Americans 59 (> 60)
--- NOTE | 2018-05-23 11:58 | Internal Med Progress Note ---
<Rashid Mora R - Last Filed: 05/23/18 11:55> Hospitalist Progress Note - Encounter Date of Encounter: 05/23/18 Time of Encounter: 11:55 - Subjective Interval History: Mr. Yang is a 62 y/o male with PMH of pneumonia, HTN, COPD, schizoaffective disorder, depression, PTSD, and smoking history who presented to [facility] for cough , lightheadedness, and a fall at home. Today patient is resting comfortably on room air. Denies dyspnea, cough, or wheezing. Reports his rib pain is improving. Denies other complaints. Denies fevers, chills, chest pain, abdominal pain, change in bowels, or dysuria. No overnight events. - Exam Vitals: Temp Pulse Resp BP Pulse Ox 98.2 F 80 18 144/87 90 05/23/18 06:55 05/23/18 06:55 05/23/18 10:18 05/23/18 06:55 05/23/18 10:18 Exam: GEN: No acute distress, A&O3 HEAD: Atraumatic, normocephalic EYES: Pupils symmetric, sclera white, conjunctiva pink HEART: RRR, normal S1 and S2, no murmurs LUNGS: Diminished breath sounds on the left ABD: Soft, nontender, nondistended, bowel sounds present MSK: Tenderness to palpation left lower ribs midclavicular line EXT: No edema noted, pulses 2/4 NEURO: No focal deficits, cooperative with exam - Assessment and Plan (1) Pneumonia Current Visit: Yes Status: Acute Assessment and Plan: Denies dyspnea, symptoms are improving O2 saturation 90-95% on room air CXR with large left-sided pleural effusion Cultures on 05/17 show no growth to date, RSV, influenza, HIV negative Patient afebrile, leukocytosis improving Pulmonology following, appreciate recommendations - Will need repeat CT in 1 month and pulmonology follow-up Continue Levaquin daily - day #3 of antibiotics Patient may be ready for discharge tomorrow (2) Septic shock Current Visit: Yes Status: Resolved Assessment and Plan: Intubated upon admission due to AMS and hypotension, this is resolved (3) Acute kidney injury superimposed on CKD Current Visit: Yes Status: Acute Assessment and Plan: Baseline GFR 55-60, Cr 1.4-1.5. Renal function at or better than baseline now GENE secondary to acute illness, sepsis, pneumonia Continue to monitor and avoid nephrotoxic medications (4) Rib pain on left side Current Visit: Yes Status: Acute Assessment and Plan: Continues to have pain Continue lidocaine patch. Add Toradol PRN (5) Anemia Current Visit: Yes Status: Acute Assessment and Plan: Hemoglobin stable at 9.7, baseline appears to be 11-12 Patient is asymptomatic, s/p thoracentesis. Stool guaiac negative, no signs of bleeding Continue to monitor DVT Prophylaxis: Subcutaneous heparin - Time Spent with Patient Total time spent is greater than 50% in coordination of care (as documented) at patient's floor/unit and/or counseling patient: Internal Medicine: Result - Labs CBC & Chem 7: 05/23/18 06:28 05/23/18 06:28 Labs: Short CBC 05/23/18 Range/Units 06:28 WBC 9.3 (4.3-11.1) K/mcL Hgb 9.7 L (12.9-16.9) g/dL Hct 28.6 L (37.5-50.1) % Plt Count 103 L (140-400) K/mcL Neutrophils # 4.8 (1.6-8.9) K/mcL BMP 05/23/18 06:28 Sodium 138 Potassium 3.7 Chloride 105 Carbon Dioxide 25 BUN 15 Creatinine 1.24 Glucose 88 Calcium 8.3 L - ABG Interpretation ABG results: ABG ABG pH 7.39 pH Units (7.32-7.45) 05/19/18 04:52 ABG pCO2 34 mmHg (35-45) L 05/19/18 04:52 ABG pO2 60 mmHg (85-104) L 05/19/18 04:52 ABG O2 Saturation 91 % (95-98) L 05/19/18 04:52 PT/INR, D-dimer PT 14.3 Seconds (9.4-12.1) H 05/17/18 15:57 - VTE Documentation of Mechanical Device: Intermittent pneumatic compression device Consult Discharge Plan - Plan Referrals: NONE,PCP [Primary Care Provider] - <Hang Peterson - Last Filed: 05/23/18 16:00> Hospitalist Progress Note - Encounter Date of Encounter: 05/23/18 - Exam Vitals: Temp Pulse Resp BP Pulse Ox 98.2 F 89 16 112/73 87 05/23/18 12:25 05/23/18 12:25 05/23/18 15:40 05/23/18 12:25 05/23/18 15:40 - Assessment and Plan (1) DVT prophylaxis Current Visit: No Status: Acute (2) Acute respiratory failure with hypoxia Current Visit: Yes Status: Resolved (3) Septic shock Current Visit: Yes Status: Resolved (4) Pleural effusion Current Visit: Yes Status: Acute - Time Spent with Patient Total time spent is greater than 50% in coordination of care (as documented) at patient's floor/unit and/or counseling patient: Internal Medicine: Result - Labs CBC & Chem 7: 05/23/18 06:28 05/23/18 06:28 Labs: Short CBC 05/23/18 Range/Units 06:28 WBC 9.3 (4.3-11.1) K/mcL Hgb 9.7 L (12.9-16.9) g/dL Hct 28.6 L (37.5-50.1) % Plt Count 103 L (140-400) K/mcL Neutrophils # 4.8 (1.6-8.9) K/mcL BMP 05/23/18 06:28 Sodium 138 Potassium 3.7 Chloride 105 Carbon Dioxide 25 BUN 15 Creatinine 1.24 Glucose 88 Calcium 8.3 L - ABG Interpretation ABG results: ABG ABG pH 7.39 pH Units (7.32-7.45) 05/19/18 04:52 ABG pCO2 34 mmHg (35-45) L 05/19/18 04:52 ABG pO2 60 mmHg (85-104) L 05/19/18 04:52 ABG O2 Saturation 91 % (95-98) L 05/19/18 04:52 PT/INR, D-dimer PT 14.3 Seconds (9.4-12.1) H 05/17/18 15:57 - Attending Attestation I have seen and examined this patient independently. I have discussed with resident physician Dr. Mora regarding the management plan. Agree with the documentation. <Rashid Mora R - Last Filed: 05/23/18 11:55> (1) Pneumonia Qualifiers: Pneumonia type: due to unspecified organism Laterality: left Lung location: lower lobe of lung Qualified Code(s): J18.1 - Lobar pneumonia, unspecified organism
[2018-05-23] MEDS: Levofloxacin 750 MG/150 ML 750 MG/150 ML BAG IVPB SCH (15:54)
[2018-05-23] MEDS: traZODone 50 MG TABLET PO SCH (21:51)
[2018-05-23] MEDS: OLANZapine 10 MG TAB.RAPDIS PO SCH (21:52)
[2018-05-24] MEDS: Ipratropium/Albuterol Neb 3 ML IH SCH ×3 (04:41→15:28)
[2018-05-24 04:48] LABS: Basophils % 0.1 %; Eosinophils # 0.1 K/mcL (0.0-0.6); Eosinophils % 1.2 %; Hematocrit 29.6 % (37.5-50.1); Hemoglobin 9.9 g/dL (12.9-16.9); Lymphocytes # 3.1 K/mcL (0.6-4.6); Lymphocytes % 28.7 %; Mean Corpuscular HGB Conc 33.4 g/dL (31.6-35.5); Mean Corpuscular Hemoglobin 31.2 pg (28.0-33.3); Mean Corpuscular Volume 93.4 fL (83.0-100.0); Mean Platelet Volume 10.5 fL (9.4-12.4); Monocytes # 1.7 K/mcL (0.0-1.3); Monocytes % 15.7 %; Neutrophils # 5.8 K/mcL (1.6-8.9); Nucleated Red Blood Cells 0.2 /100 WBC (0); Platelet Count 110 K/mcL (140-400); Red Blood Count 3.17 M/mcL (4.19-5.50); Red Cell Distribution Width 15.8 % (11.5-14.5); Segmented Neutrophils % 53.3 %
[2018-05-24 05:06] LABS: BUN/Creatinine Ratio 13 (6-26); Blood Urea Nitrogen 17 mg/dL (8-23); Calcium 8.4 mg/dL (8.6-10.3); Carbon Dioxide 24 mEq/L (23-29); Chloride 108 mEq/L (98-107); Glucose 93 mg/dL (70-105); Osmolality,Calculated 285 (280-300); Potassium 3.9 mEq/L (3.5-5.1); Sodium 137 mEq/L (136-145); eGFR For Non-African Americans 53 (> 60)
[2018-05-24] MEDS: *HR* Heparin 5,000 UNIT/ML VIAL SQ SCH ×2 (05:08→17:39)
[2018-05-24] MEDS: diazePAM 5 MG TABLET PO SCH ×3 (08:55→20:12)
[2018-05-24] MEDS: Nicotine 21 MG PATCH.TD24 TD SCH (08:55)
--- NOTE | 2018-05-24 10:15 | Discharge Summary ---
<Rashid Mora - Last Filed: 05/24/18 14:43> - NOTES TO OUTPATIENT PROVIDER Notes to Outpatient Provider: Left sided pleural effusion due to pneumonia. Will need chest CT in 1 month and then needs to follow-up with Pulmonology. Continue Levaquin for 3 more days upon discharge Orders not resulted at time of discharge: Pending orders 05/19/18 11:00 Culture,Anaerobic [RM] Routine Date of Encounter: 05/24/18 Time of Encounter: 10:12 - Discharge Diagnosis (1) Pneumonia Priority: Primary Status: Acute Qualifiers: Pneumonia type: due to unspecified organism Laterality: left Lung location: lower lobe of lung Qualified Code(s): J18.1 - Lobar pneumonia, unspecified organism (2) Septic shock Priority: Secondary Status: Resolved (3) Pleural effusion Priority: Secondary Status: Acute (4) Acute kidney injury superimposed on CKD Priority: Secondary Status: Acute (5) Rib pain on left side Priority: Secondary Status: Acute (6) Anemia Priority: Secondary Status: Acute Qualifiers: Anemia type: unspecified type Qualified Code(s): D64.9 - Anemia, unspecified Hospital course: Mr. Yang is a 62 year old male with PMH of schizoaffective disorder, depression, panic disorder, COPD, CKD 3, tobacco use, and hypertension admitted with septic shock secondary to left lower lobe pneumonia and associated pleural effusion. He had fallen, but was unsure what happened. Head CT was normal. Chest CT confirmed a large left pleural effusion. No other abnormalities. He was started on broad-spectrum antibiotics and had elevated lactate, tachycardia , and hypotension refractory to fluid resuscitation. His respiratory status was declining, and he was intubated, placed on pressors, and transferred to the ICU. He received thoracentesis which was consistent with an exudative fluid. He was extubated 2 days later and transferred out of the ICU. His lactic acid resolved, blood pressure stabilized, GENE resolved, and respiratory status improved. Blood and sputum culture showed no growth. Legionella and strep pneumo negative. Antibiotics were de-escalated to Levaquin. He also had some left-sided rib pain that was improved with lidocaine patch. Repeat chest CT and chest x-ray show persistence but mild improvement in left-sided pleural effusion, and he will need a follow-up chest CT in about a month. And then he is to follow-up with pulmonology as an outpatient. Today he is doing well with no complaints. He is hemodynamically stable and able to be discharged home. - Time Spent with Patient Total time spent providing and/or coordinating discharge services: - Discharge Medications Prescriptions: Albuterol Sulfate [Albuterol Inhaler] 1 puff IH Q6HR PRN #1 hfa.aer.ad PRN Reason: Dyspnea levoFLOXacin [Levaquin] 750 mg PO DAILY #3 tablet Lidocaine Patch [Lidoderm 5% patch] 1 each TP DAILY #7 adh..patch Nicotine Patch [Nicoderm] 21 mg TD DAILY #30 patch.td24 Home Medications: OLANZapine [Zyprexa] 30 mg PO HS 10/29/15 [History] Trihexyphenidyl [Artane] 2 mg PO BID 10/29/15 [History] Fluphenazine [Prolixin] 2.5 mg PO BID #8 tablet 05/03/17 [Rx] Trazodone HCl 300 mg PO HS 05/17/18 [History] diazePAM [Valium] 10 mg PO TID PRN 05/17/18 [History] hydrOXYzine pamoate [HydrOXYzine Pamoate] 25 mg PO BID 05/17/18 [History] Albuterol Sulfate [Albuterol Inhaler] 1 puff IH Q6HR PRN #1 hfa.aer.ad 05/24/18 [Rx] Lidocaine Patch [Lidoderm 5% patch] 1 each TP DAILY #7 adh..patch 05/24/18 [Rx] Nicotine Patch [Nicoderm] 21 mg TD DAILY #30 patch.td24 05/24/18 [Rx] levoFLOXacin [Levaquin] 750 mg PO DAILY #3 tablet 05/24/18 [Rx] Allergies/Adverse Reactions: 3 Allergy/AdvReac Type Severity Reaction Status Date / Time No Known Allergies Allergy Verified 05/17/18 18:27 Date of admission: 05/17/18 21:50 Primary care physician: PCP NONE Consults: 05/17/18 21:57 Consult to Nurse Navigator [CONS] Routine Comment: 05/17/18 22:43 Consult to Pulmonology [CONS] Routine Consulting Provider: Pulm Crit [facility] Sleep Rush Reason for Consult: Acute resp failure Call Completed: Yes 05/23/18 07:48 Consult to Physical Therapy [CONS] Routine Comment: Evaluate, develop and implement POC Reason for Consult: weakness unsteady gait Does patient have active BEDREST order?: No Is patient medically & hemodynamically stable?: Yes Patient assessed for mobility or mobilized this visit?: Yes Discharging clinician: Rashid Mora Anticipated date of discharge: 05/24/18 - Constitutional Vitals: Temp Pulse Resp BP Pulse Ox 98.0 F 89 18 120/76 95 05/24/18 07:28 05/24/18 07:28 05/24/18 07:28 05/24/18 07:28 05/24/18 07:28 - Other Additional findings: GEN: No acute distress, Alert and oriented HEAD: Atraumatic, normocephalic EYES: Pupils symmetric, sclera white, conjunctiva pink HEART: RRR, normal S1 and S2, no murmurs LUNGS: Diminished on lower left side, clear elsewhere ABD: Soft, nontender, nondistended, bowel sounds present EXT: No edema noted, pulses 2/4 NEURO: No focal deficits, cooperative with exam - Patient Status Disposition: Home, Self-Care Condition: Fair Functional capacity at discharge: independent ambulation Overall status at discharge: patient is progressing back to baseline - Ambulatory Orders Ambulatory Orders: CT chest wo con [CT] Time Frame: 1 Month, Facility: [facility], Location: Radiology - Discharge Instructions Follow Up With: NONE,PCP [Primary Care Provider] - Juan Wilson MD [Partnered Physician] - Additional Instructions: Take Levaquin for 3 more days Use albuterol inhaler as needed every 6 hours for shortness of breath Continue to avoid smoking, you may use nicotine patches to help Obtain a chest CT in about 1 month for pneumonia/pleural effusion resolution Follow-up with pulmonology in 6-8 weeks Follow-up with your primary care physician - Diet and Activity Activity: increase activity as tolerated Diet: advance to your usual diet - VTE Documentation of Mechanical Device: Intermittent pneumatic compression device <Hang Peterson - Last Filed: 05/24/18 17:19> Date of Encounter: 05/24/18 - Discharge Diagnosis (1) DVT prophylaxis Status: Acute (2) Acute respiratory failure with hypoxia Status: Resolved (3) Septic shock Status: Resolved (4) Pleural effusion Status: Acute Hospital course: Mr. Yang is a 62 year old male - Time Spent with Patient Total time spent providing and/or coordinating discharge services: Date of admission: 05/17/18 21:50 Primary care physician: PCP NONE Consults: 05/17/18 21:57 Consult to Nurse Navigator [CONS] Routine Comment: 05/17/18 22:43 Consult to Pulmonology [CONS] Routine Consulting Provider: Pulm Crit Care [facility] Sleep Najma Reason for Consult: Acute resp failure Call Completed: Yes 05/23/18 07:48 Consult to Physical Therapy [CONS] Routine Comment: Evaluate, develop and implement POC Reason for Consult: weakness unsteady gait Does patient have active BEDREST order?: No Is patient medically & hemodynamically stable?: Yes Patient assessed for mobility or mobilized this visit?: Yes - Constitutional Vitals: Temp Pulse Resp BP Pulse Ox 98.2 F 93 19 106/64 90 05/24/18 16:01 05/24/18 16:01 05/24/18 16:01 05/24/18 16:01 05/24/18 16:01 - Attending Attestation I have seen and examined this patient independently. I have discussed with the resident physician Dr. Mora regarding the discharge and follow-up plan. Agree with the documentation.
[2018-05-24] MEDS: Levofloxacin 750 MG/150 ML 750 MG/150 ML BAG IVPB SCH (13:16)
--- NOTE | 2018-05-24 14:47 | Event Note ---
Date of Encounter: 05/24/18 Time of Encounter: 14:44 Spoke with pt's mother who he lives with at home. His mother reports that they have no transportation. Will work on setting up transportation. Also of note, the Pt's celeste has now been removed. Will monitor for ability to void overnight as we wait for transportation to be set up as well.
[2018-05-24] MEDS: traZODone 50 MG TABLET PO SCH (20:11)
[2018-05-24] MEDS: OLANZapine 10 MG TAB.RAPDIS PO SCH (20:11)
[2018-05-25] MEDS ORDERED: Ondansetron 4 MG/2 ML VIAL IVP PRN (04:44)
[2018-05-25] MEDS: *HR* Heparin 5,000 UNIT/ML VIAL SQ SCH (06:27)
--- NOTE | 2018-05-25 07:47 | Internal Med Progress Note ---
Hospitalist Progress Note - Encounter Date of Encounter: 05/25/18 Time of Encounter: 07:45 - Subjective Interval History: Patient seen and examined at bedside. Patient had no acute overnight events. Patient was discharged yesterday however had difficulty finding transportation. Patient also was noted to have urinary retention yesterday and was unable to void after catheter removal. Explained to patient that we will discharge him with the Dash catheter and make an appointment for him for urology follow-up as an outpatient. He states he understands. Patient denies any chest pain, shortness of breath, nausea, vomiting, abdominal pain. Patient did have an episode of nausea and vomiting yesterday but feels better currently. Patient has been afebrile. - Exam Vitals: Temp Pulse Resp BP Pulse Ox 98.9 F 91 18 107/69 94 05/25/18 07:21 05/25/18 07:21 05/25/18 07:21 05/25/18 07:21 05/25/18 07:21 Exam: Constitutional: No acute distress, Alert Psych: AAO x 3 HEENT: NCAT, EOMI Neck: supple Cardio: regular rate and rhythm, +s1s2, no murmurs/rubs/gallops Resp: Slightly decreased respiratory sounds in bases Abd: soft, non tender/non distended, positive bowel sounds, no gaurding/reboud/ ridgitity, no flank tenderness Extremities: no clubbing/cyanosis/edema appreciated Neuro: no focal deficits appreciated Lymph: no cervical/supraclavicular adenopahty apprecitated - Assessment and Plan (1) Acute respiratory failure with hypoxia Current Visit: Yes Status: Resolved Assessment and Plan: Acute hypoxic respiratory failure secondary to pneumonia. Currenlty resolved -Patient required brief intubation and was successfully extubated -Appreciate pulmonology recommendations -Continue Levaquin as out pt for 3 additional days -Is afebrile -Pulse ox 95% on room air -We will have repeat CAT scan of the chest in one month -Status post thoracentesis (2) Septic shock Current Visit: Yes Status: Resolved Assessment and Plan: Patient required vasopressors secondary to septic shock from pneumonia -This is resolved (3) Pleural effusion Current Visit: Yes Status: Acute Assessment and Plan: Patient had an exudative pleural effusion status post thoracentesis -We will have outpatient CT scan of the chest in one month -We will need to follow with PCP regarding CT scan -No respiratory distress currently (4) Acute urinary retention Current Visit: Yes Status: Acute Assessment and Plan: Patient had Dash catheter removal yesterday with inability to urinate post- removal -Patient Dash catheter replaced with removal 825 mL of urine -Dash catheter was replaced -We will discharge with Dash catheter and leg bag -Appointment made for outpatient urology follow-up due to urinary retention -Instructed patient to maintain Dash until follow-up appointment -Check the patient to return to the ER or PCP if develops fevers -Started the patient on Flomax and a prescription for Flomax (5) DVT prophylaxis Current Visit: No Status: Acute Assessment and Plan: Subcutaneous heparin - Summary of Assessment and Plan Summary of Assessment and Plan: Patient was admitted with septic shock and hypoxic history failure requiring intubation. The patient improved with antibiotics rapidly and thoracentesis. Patient will have repeat CT scan of his chest in 1 month for follow-up and will follow-up with PCP. Patient developed urinary retention and will be discharged with Dash catheter. Patient to follow-up with urology as an outpatient, appointment has been made. Patient stable for discharge on 05/25/2018. - Time Spent with Patient Total time spent is greater than 50% in coordination of care (as documented) at patient's floor/unit and/or counseling patient: 25 - 35 minutes Plan of Care Discussed with: patient Internal Medicine: Result - Labs CBC & Chem 7: 05/24/18 04:34 05/24/18 04:34 - ABG Interpretation ABG results: ABG ABG pH 7.39 pH Units (7.32-7.45) 05/19/18 04:52 ABG pCO2 34 mmHg (35-45) L 05/19/18 04:52 ABG pO2 60 mmHg (85-104) L 05/19/18 04:52 ABG O2 Saturation 91 % (95-98) L 05/19/18 04:52 PT/INR, D-dimer PT 14.3 Seconds (9.4-12.1) H 05/17/18 15:57 - VTE Documentation of Mechanical Device: Intermittent pneumatic compression device Consult Discharge Plan - Plan Additional Instructions: Take Levaquin for 3 more days Use albuterol inhaler as needed every 6 hours for shortness of breath Continue to avoid smoking, you may use nicotine patches to help Obtain a chest CT in about 1 month for pneumonia/pleural effusion resolution Follow-up with pulmonology in 6-8 weeks Follow-up with your primary care physician Referrals: Juan Wilson MD [Partnered Physician] - NONE,PCP [Primary Care Provider] - Prescriptions: Albuterol Sulfate [Albuterol Inhaler] 1 puff IH Q6HR PRN #1 hfa.aer.ad PRN Reason: Dyspnea levoFLOXacin [Levaquin] 750 mg PO DAILY #3 tablet Lidocaine Patch [Lidoderm 5% patch] 1 each TP DAILY #7 adh..patch Nicotine Patch [Nicoderm] 21 mg TD DAILY #30 patch.td24 Tamsulosin [Flomax] 0.4 mg PO DAILY 30 Days #30 cap.er.24h
[2018-05-25] MEDS: diazePAM 5 MG TABLET PO SCH (08:51)
[2018-05-25] MEDS: Nicotine 21 MG PATCH.TD24 TD SCH (08:51)
[2018-05-25] MEDS ORDERED: levoFLOXacin 750 MG TABLET PO SCH (09:00)
[2018-05-25 11:43] VITALS: BP 112/75
== END 2018-05-25 13:23 | disposition home or self-care (01) | DRG 871 ==
LOC: EMEROO 15:37 → 2ANU 15:37 → 2NNU 19:54 → ICNU 21:49 → 2ANU 05-20 15:48
PROVIDERS: ADMIT Internal Medicine; ATTEND Internal Medicine